=== PATIENT | female | born 1950 | race Caucasian/White ===

== ENCOUNTER 2022-02-13 20:31 | Outpatient (CLI) | payer OTHER, SELFPAY ==
--- OUTSIDE RECORDS SUMMARY | 2022-04-02 21:36 | XMS_ITS | Encounter Summary ---
:1950 Author Organization [facility] Address [address] [place] [address] Care Team Providers Name Role Phone Unavailable Primary Care Provider Unavailable Encounter Details Date Type Department Care Team Description 02/23/2022 Treatment [facility] Darrel Lepe MD [address] [place] [address] [place] [address] [place], [place] [phone] [place], [place] [phone] (Wo rk) Social History Tobacco Use Types Packs/Day Years Used Date Smoking Tobacco: Never Assessed Sex Assigned at Date Recorded Not on file documented as of this encounter Miscellaneous Notes Dialysis Note - Darrel Delgadillo MD - 02/23/2022 8:53 AM CDT Date: Feb 23, 2022 Patient Name: Charlotte Ramos : 1950 Chart #: [id number] Sex: F This patient was personally seen for a complete visit as part of routine monthly dialysis care. A review of the dialysis treatment, blood pressure, estimated dry weight and recent lab values was made. These were discussed with the patient and staff as necessary. JEWELRY CONSULTANT: Darrel Delgadillo MD LOCATION: [facility] [phone] SCHEDULE: -W- 2nd Shift EDW: kg. DIALYZER: HD DURATION: NEEDLE SIZE: ANTICOAG: BATH: QB: ml/min QD: ml/min Subjective 02/21: Doing better since hospitalization 1 or so weeks ago at [facility]/ diverticulitis. Completed course of abx. Tolerating hd rx better. Access working well. Her onc MD stopped chemo rx due to intolerance. Seeing them again soon in f/u. 01/22: Doing well overall. BMBx done on 01/06/22 w/ 30% plasma cell involvement (was 20% one year ago).Will discuss w/ onc MD soon. Also awaiting MRI of the spine to determine if there is an area(s) of irradiation that may be necessary for MET disease. 11/21: New to me. Tolerating hd better since she had cor stents placed at [facility]. Hosp 10/21/21-11/01/2021.Coronary angiogram on 10/29/21 which showed 90% stenosis in the proximal LAD, 90% stenosis in the proximal RCA for which FRED x2 placed. Does not yet have a chemo plan for the MM per onc MD. Access working well. No questions for me today. Physically, feeling much improvement since hospital d/c Pt new to dialysis. We have been using permcath as she had inadequate vessels to place fistula Also has a graft which is now over a month old. Feeling well, but has chronic sob. Denies any chest pains.Eating well. Denies edema. Continues to see hematology for Multiple MyelomT Today had two needles placed. Has apt with Dr Landry for access evaluation on the and will plan to get the access removed at that time. Denies sob at this time. She was told that her myeloma is worse but that the hematologists will hold off on further treatment at this time. 08/20/21 Feels well today, stronger . breathing is a little better than it was. Eating well. Had infiltrate left forearm. So we are using one needle and using the permcath for a return. She will be seeing her surgeon tomorrow. Still following with hematology. 09/01/21 Says she is feeling ok. Had an episode of hypotension on dialyiss last week and had an episode yesterday afternoon when she felt weak. 10/06/21 Feels ok. Not very active. Chemo to resume for her myeloma soon. Does get sob periodically . Denies chest pain Advanced Practitioner Subjective Review of Systems None reported. Fatigue. Problem List Description ICD9 Code ICD10 Code Type 2 diabetes mellitus 250.00 E11.9 End stage renal disease 585.6 N18.6 Dependence on renal dialysis V45.11 Z99.2 Exam Respiratory - Clear to auscultation bilaterally. Cardiovascular - Regular rate. Regular rhythm. No murmur heard. Edema - No leg edema. Access - LUE forearm AVG w/ ++t/b. Medication List No medication list is available. Allergy List No allergy list is available. Medications reviewed and no changes were made. relevant CV meds: amlodipine 5 mg qd, carvedilol 25 mg bid, losartan 25 mg qd, imdur 60 mg qd, furosemide 40 mg qd. Treatment and Adequacy Assessment BUN mg/dL 40 (02/02/22) 42 (01/02/22) 51 (12/01/21) 29 (11/07/21) TNP (11/05/21) CREATININE (MG/DL) IN SER/PLAS mg/dL 9.67 (02/18/22) 5.58 (01/19/22) 6.04 (12/17/21) 5.79 (11/17/21) 6.30 (11/14/21) URR% % 75 (02/02/22) 76 (01/02/22) 76 (12/01/21) 79 (11/07/21) See Below (11/05/21) Dialysis is adequate. Achieves prescribed time - Yes Achieves prescribed frequency - Yes Missed treatments in past 30 days - 0 Goal sp kt/v >/= 1.2 02/21: at goal here. 1.61 this month. Vascular Access Assessment Type of access: GraftLUE forearm avg Surgeon - con Landry Staff and patient report access is working 12/01/21: u/s reviewed. Will refer for preemptive f'gram. Anemia Assessment WBC (BLOOD) x 103 cells/uL 5.8 (02/18/22) 10.8 (01/19/22) 8.5 (12/17/21) 6.0 (11/17/21) 6.2 (11/14/21) HGB g/dL 7.6 (02/18/22) 8.8 (02/09/22) 8.8 (02/02/22) 9.2 (01/26/22) 9.3 (01/19/22) PLATELETS x 103 cells/uL 145 (02/18/22) 191 (01/19/22) 209 (12/17/21) 167 (11/17/21) 140 (11/14/21) IRON SATURATION % 44 (02/18/22) 34 (01/19/22) 43 (12/17/21) 60 (11/17/21) 42 (11/14/21) FERRITIN ng/mL 1423 (02/18/22) 1288 (01/19/22) 1443 (12/17/21) 1537 (11/17/21) 1455 (11/14/21) Hemoglobin is below goal. Iron Saturation is at goal. Ferritin is above goal. Will adjust LINA and intravenous iron per protocol. hgb 02-10: LINA has been cleared by onc MD to be administered by us. Transfusion dependent. We will shareher hgb values done weekly with her onc MD. Nutritional and Metabolic Assessment ALBUMIN (G/DL) g/dL 3.5 (02/18/22) 3.9 (01/19/22) 3.7 (12/17/21) 3.6 (11/17/21) 3.5 (11/14/21) POTASSIUM (MMOL/L) IN SER/PLAS mEq/L 4.7 (02/18/22) 4.5 (01/19/22) 5.3 (12/17/21) 4.6 (11/17/21) 4.7 (11/14/21) BICARBONATE (CO2) mEq/L 15 (02/18/22) 19 (01/19/22) 18 (12/17/21) 18 (11/17/21) 16 (11/14/21) Albumin is below goal. Potassium is at goal. Encourage low potassium diet. Bicarbonate is at goal. Continue same bicarbonate in dialysate. alb >/= 4; k 3.5-5.6; HCO3 17-24. 02/21: Alb suboptimal but K is fine. Push protein intake as able. HCO3 noted... Bone and Mineral Metabolism Assessment CALCIUM mg/dL 8.8 (02/02/22) 9.0 (01/02/22) 9.0 (12/01/21) 8.2 (11/14/21) Pending (11/05/21) CORRECTED CALCIUM mg/dL 8.9 (02/02/22) 9.2 (01/02/22) 9.3 (12/01/21) 8.6 (11/14/21) 9.4 (10/06/21) PHOSPHORUS mg/dL 5.5 (02/02/22) 4.9 (01/02/22) 4.7 (12/17/21) 6.6 (12/01/21) 7.1 (11/24/21) CA*PO4 CORRCTD Calc 49.0 (02/02/22) 45.1 (01/02/22) 61.4 (12/01/21) 59.3 (11/14/21) 63.0 (10/06/21) IPTH pg/mL 167 (02/02/22) 16 (11/05/21) 385 (08/04/21) 121 (07/04/21) Corrected Calcium is at goal. Phosphorous is at goal. Ca X P product is at goal. Intact PTH is at goal. Ca 8.5-10; phos 3-5.5; Ca x phos < 50; PTH 150-700 02/21: Phos is fine / well controlled. Ca is in goal as well. Cardiovascular Assessment Blood pressures reviewed and are acceptable. Intradialytic weight gains are appropriate. Estimated dry weight is appropriate. 12/22: Very very erratic bps. Hold on changes at this time due to frail physiology, often significantly anemic, etc. Transplant Status: Patient is not a candidate. Not transplant candidate due to obesity and her myeloma. Resuscitation Status Discussed with patient 11/10/21 who requested Full Code. 02/21: Lower rx time to 3 hr. She is losing weight so we will minimize UF due to progressive intolerance. HD is being used as palliation now. Hoping that she will be able to tolerate chemo better if / when it is restarted. 01/22: As below from 12/22. Will adjust hd as needed if chemo restarteed. 12/22: Await word on chemo restarting. Transfuse PRN 11/21: doing much better since cor angio. We will see how things go once chemo restarted... Darrel Delgaidllo MD [ Signed And locked electronically On 02/23/2022 at 08:58:30 AM ] Transcribed: Darrel Delgadillo ( 02/23/2022 ) documented in this encounter Plan of Treatment Not on filedocumented as of this encounter Visit Diagnoses Not on filedocumented in this encounter
--- OUTSIDE RECORDS SUMMARY | 2022-04-02 21:36 | XMS_ITS | Clinical Summary ---
:1950 Author Organization [facility] Facility Address [address] [place] [id number] Care Team Providers Name Role Phone Unavailable Primary Care Provider Unavailable Encounters Date Type Specialty Care Team Description 03/09/2022 Treatment Darrel Delgadillo MD 02/23/2022 Treatment Darrel Delgadillo MD 01/19/2022 Orders Only Nephrology Darrel Delgadillo MD 01/12/2022 Treatment Darrel Delgadillo MD from Last 3 Months Social History Tobacco Use Types Packs/Day Years Used Date Smoking Tobacco: Never Assessed Sex Assigned at Date Recorded Not on file Plan of Treatment Health Maintenance Due Date Last Done Comments Pneumococcal Vaccine: 65+ Years (1 [birth year]1954 - PCV) Hepatitis B Vaccine (1 of 5 - Risk 1968 Dialysis 4-dose series) Colorectal Cancer Screenin01/31/1997 Annual FOBT Colorectal Cancer Screenin01/31/1997 Colonoscopy Colorectal Cancer Screenin01/31/1997 Sigmoidoscopy Diabetes: Ophthalmology Exam 08/07/2021 Diabetes: Pedal Pulse Checked 08/07/2021 Diabetes: Sensory Foot Exam 08/07/2021 Diabetes: Visual Foot Exam 08/07/2021 Influenza Vaccine (#1) 2022 Diabetes: Hemoglobin A1C 05/21/2022 02/18/2022, 11/17/2021, 08/18/2021, Additional history exists Procedures Procedure Name Priority Date/Time Associated Comments Diagnosis HEMOGLOBIN Routine 03/30/2022 4:00 AM Results f or this [employer] procedure are i n the results section. HCT CALC HGBX3 (HC) Routine 03/30/2022 4:00 AM Re sults for this [employer] procedure are i n the results section. HEPATITIS B SURFACE Routine 03/23/2022 4:00 AM Re sults for this ANTIGEN [employer] procedure are i n the results section. FERRITIN Routine 03/23/2022 4:00 AM Results f or this [employer] procedure are i n the results section. ALT Routine 03/23/2022 4:00 AM Results f or this [employer] procedure are i n the results section. PHOSPHATE ( Routine 03/23/2022 4:00 AM Results for this PHOSPHORUS) [employer]ILY [employer] procedure are i n the results section. GLUCOSE, RANDOM Routine 03/23/2022 4:00 AM Result s for this [employer] procedure are i n the results section. CREATININE, SERUM Routine 03/23/2022 4:00 AM Resu lts for this [employer] procedure are i n the results section. KT/V DAUGIRDAS (HC) Routine 03/23/2022 4:00 AM [employer]ILY [employer]ER IRON PANEL (FE, Routine 03/23/2022 4:00 AM Result s for this TIBC, TSAT) [employer] procedure are i n the results section. MONTHLY HD W/O CA/PH Routine 03/23/2022 4:00 AM R esults for this (HC) [employer] procedure are i n the results section. HEMOGLOBIN Routine 03/16/2022 4:00 AM Results f or this [employer] procedure are i n the results section. HCT CALC HGBX3 (HC) Routine 03/16/2022 4:00 AM Re sults for this [employer] procedure are i n the results section. HEMOGLOBIN Routine 03/09/2022 4:00 AM Results f or this [employer] procedure are i n the results section. HCT CALC HGBX3 (HC) Routine 03/09/2022 4:00 AM Re sults for this [employer] procedure are i n the results section. KT/V DAUGIRDAS (HC) Routine 03/09/2022 4:00 AM Re sults for this [employer] WORK[employer] procedure are i n the results section. CARMEN/PHOS W/RATI (HC) Routine 03/09/2022 4:00 AM R esults for this [employer] procedure are i n the results section. HEMOGLOBIN Routine 03/04/2022 4:00 AM Results f or this CDT procedure are i n the results section. HCT CALC HGBX3 (HC) Routine 03/04/2022 4:00 AM Re sults for this CDT procedure are i n the results section. HEPATITIS B SURFACE Routine 03/02/2022 4:00 AM Re sults for this ANTIBODY QUANT CDT procedure are in the results section. HEMOGLOBIN Routine 03/02/2022 4:00 AM Results f or this CDT procedure are i n the results section. HEMOGLOBIN Routine 02/23/2022 4:00 AM Results f or this CDT procedure are i n the results section. HCT CALC HGBX3 (HC) Routine 02/23/2022 4:00 AM Re sults for this CDT procedure are i n the results section. HEPATITIS B SURFACE Routine 02/18/2022 4:00 AM Re sults for this ANTIGEN CDT procedure are i n the results section. FERRITIN Routine 02/18/2022 4:00 AM Results f or this CDT procedure are i n the results section. HEMOGLOBIN A1C Routine 02/18/2022 4:00 AM Results for this CDT procedure are i n the results section. ALT Routine 02/18/2022 4:00 AM Results f or this CDT procedure are i n the results section. GLUCOSE, RANDOM Routine 02/18/2022 4:00 AM Result s for this CDT procedure are i n the results section. CREATININE, SERUM Routine 02/18/2022 4:00 AM Resu lts for this CDT procedure are i n the results section. HCV PANEL NONPROTOCL Routine 02/18/2022 4:00 AM R esults for this (HC) CDT procedure are i n the results section. IRON PANEL (FE, Routine 02/18/2022 4:00 AM Result s for this TIBC, TSAT) CDT procedure are i n the results section. MONTHLY HD W/O CA/PH Routine 02/18/2022 4:00 AM R esults for this (HC) CDT procedure are i n the results section. HEMOGLOBIN Routine 02/09/2022 4:00 AM Results f or this CDT procedure are i n the results section. HCT CALC HGBX3 (HC) Routine 02/09/2022 4:00 AM Re sults for this CDT procedure are i n the results section. PTH, INTACT Routine 02/02/2022 4:00 AM Results f or this CDT procedure are i n the results section. HEMOGLOBIN Routine 02/02/2022 4:00 AM Results f or this CDT procedure are i n the results section. HCT CALC HGBX3 (HC) Routine 02/02/2022 4:00 AM Re sults for this CDT procedure are i n the results section. KT/V DAUGIRDAS (HC) Routine 02/02/2022 4:00 AM Re sults for this CDT procedure are i n the results section. CARMEN/PHOS W/RATI (HC) Routine 02/02/2022 4:00 AM R esults for this CDT procedure are i n the results section. HEMOGLOBIN Routine 01/26/2022 4:00 AM Results f or this CDT procedure are i n the results section. HCT CALC HGBX3 (HC) Routine 01/26/2022 4:00 AM Re sults for this CDT procedure are i n the results section. HEPATITIS B SURFACE Routine 01/19/2022 4:00 AM Re sults for this ANTIGEN CDT procedure are i n the results section. FERRITIN Routine 01/19/2022 4:00 AM Results f or this CDT procedure are i n the results section. ALT Routine 01/19/2022 4:00 AM Results f or this CDT procedure are i n the results section. GLUCOSE, RANDOM Routine 01/19/2022 4:00 AM Result s for this CDT procedure are i n the results section. CREATININE, SERUM Routine 01/19/2022 4:00 AM Resu lts for this CDT procedure are i n the results section. IRON PANEL (FE, Routine 01/19/2022 4:00 AM Result s for this TIBC, TSAT) CDT procedure are i n the results section. MONTHLY HD W/O CA/PH Routine 01/19/2022 4:00 AM R esults for this (HC) CDT procedure are i n the results section. HCT CALC HGBX3 (HC) Routine 01/02/2022 4:00 AM Re sults for this CDT procedure are i n the results section. HEMOGLOBIN Routine 01/02/2022 4:00 AM Results f or this CDT procedure are i n the results section. KT/V DAUGIRDAS (HC) Routine 01/02/2022 4:00 AM Re sults for this CDT procedure are i n the results section. CARMEN/PHOS W/RATI (HC) Routine 01/02/2022 4:00 AM R esults for this CDT procedure are i n the results section. from Last 3 Months Results (ABNORMAL) HCT CALC HGBX3 (03/30/2022 4:00 AM [employer]AGE [employer]ILY [employer] WORKER)Only the most recent of9 resultswithin the time period is included. Analysis Performed At Patho logist Time Signature Hemoglobin x 3 25.8 (L) 37.0 - APS [facility] 47.0 % [facility] Comment: Reference Range is for adult patients. ? ?Refer to pediatric reference ranges in the Lab Reference Manual for age-specifi c reference ranges. Specimen Anatomical Collection Method Collection Time Receive d Time (Source) Location / / Volume Laterality 03/30/2022 4:00 AM 2 7:51 [employer] PM [employer] Darrel Delgadillo MD LAB [id number] NSOLICITED RESULTS Performing Organization Address City/State/ZIP Code Phon e Number APS [facility] (ABNORMAL) Hemoglobin (03/30/2022 4:00 AM [employer]AGE [employer] FAMILY [employer]IAL WORKER)Only the most recent of10 results within the time period is included. P athologist Signature Hgb 8.6 (L) 12.0 - 16.0 [facility]PS [facility] g/dL [facility] Specimen Anatomical Collection Method Collection Time Receive d Time (Source) Location / / Volume Laterality 03/30/2022 4:00 AM 2 7:51 [employer] PM [employer] Darrel Delgadillo MD LAB BLOOD ORDERABLES Performing Organization Address City/State/ZIP Code Phon e Number APS [facility] KT/V DAUGIRDAS (03/23/2022 4:00 AM [employer]AGE [employer] FAMILY SOCIAL WORKER)Only the most recent of4 resultswithin the time period is included. Specimen Anatomical Collection Method Collection Time Receive d Time (Source) Location / / Volume Laterality 03/23/2022 4:00 AM 2 [employer] 11:28 AM [employer] WORKER Darrel Delgadillo MD LAB [id number] NSOLICITED RESULTS Performing Organization Address City/State/ZIP Code Phon e Number APS [facility] (ABNORMAL) MONTHLY HD W/O CA/PH (03/23/2022 4:00 AM [employer]AGE [employer] FAMILY SOCIAL WORKER)Only the most recent of3 resultswithin the time period is included. Patholo gist Method Time Signature Potassium 4.8 3.5 - 5.5 [facility] mEq/L [facility] Chloride 110 (H) 99 - 109 [facility] mEq/L [facility] Bicarbonate 16 (L) 20 - 31 A[facility] (CO2) mEq/L [facility] Protein, Total 7.8 5.7 - 8.2 [facility] g/dL [facility] Albumin 3.7 3.4 - 4.8 [facility] g/dL [facility] AST (SGOT) 14 0 - 33 [facility] U/L [facility] LDH 183 120 - 246 [facility] U/L [facility] Alkaline 120 (H) 46 - 116 [facility] Phosphatase U/L [facility] WBC 6.3 4.5 - APS [facility] 11.0 x [facility] 10'3 cells/uL RBC 2.41 (L) 4.20 - APS [facility] 5.40 x [facility] 10'6 cells/uL Hgb 8.6 (L) 12.0 - APS [facility] 16.0 g/dL [facility] Hematocrit 25.8 (L) 37.0 - APS [facility] 47.0 % [facility] MCV 107.2 (H) 80.0 - APS [facility] 100.0 fL [facility] Comment: NOTE: MCV may be falsely elevat ed in aged samples (approximately 72 hours). MCH 35.6 (H) 27.0 - 31.0 pg APS DAVITA [facility] N MCHC 33.2 32.0 - 36.0 g/dL [facility] [place] MMN RDW 19.2 (H) 11.0 - 15.0 % APS [facility] Platelets 129 (L) 150 - 400 x 10'3 cells/uL [facility] Neutrophils % Auto 62.7 % APS [facility] Lymphocytes Manual 26.6 % APS [facility] Monocytes Manual 5.4 % APS [facility] [place] MMN Eosinophil % 4.9 % APS [facility] Basophils Relative 0.4 % APS DAV[facility] Neutrophils Absolute 3,937.56 2,000 - 8,800 Cell/uL APS [facility] Lymphocytes Absolute 1,670.48 1,100 - 4,800 Cell/uL APS [facility] Monocytes Absolute 339.12 0 - 1,100 Cell/uL APS [facility] Eosinophils Absolute 307.72 0 - 700 Cell/uL APS [facility] Basophils Absolute 25.12 0 - 400 Cell/uL APS D AVITA [facility] Comment: NOTE:Diff percentage results will contin ue to be reported but without reference ranges per CAP guidelines and will not b e flagged as normal or abnormal. Absolute concentrations of circulating W BC are the preferable method of reporting and will continue to be evalua deidre against established reference ranges. Globulin 4.1 0.9 - 5 g/dL [facility] A/G Ratio 0.9 (L) 1 - 2.5 Calc APS [facility] Hemoglobin x 3 25.8 (L) 37.0 - 47.0 % APS [facility] Comment: Reference Range is for adult patients. ? ?Refer to pediatric reference ranges in the Lab Reference Manual for age-specifi c reference ranges. Specimen Anatomical Collection Method Collection Time Receive d Time (Source) Location / / Volume Laterality 03/23/2022 4:00 AM 2 [employer] 11:28 AM [employer]ILY [employer] WORKER Darrel Delgadillo MD LAB [id number] NSOLICITED RESULTS Performing Organization Address City/State/ZIP Code Phon e Number APS [facility] (ABNORMAL) Iron Panel (Fe, TIBC, TSAT) (03/23/2022 4:00 AM [employer]AGE AND FAMILY SOCIAL WORKER)Only the most recent of3 resultswithin the time period is included. P athologist Signature Iron 80 50 - 170 [facility] ug/dL [facility] TIBC 215 (L) 250 - 425 [facility]PS [facility] ug/dL [facility] UIBC 135 80 - 375 [facility]PS [facility] ug/dL [facility] Iron Saturation 37 16 - 46 % APS [facility] (TSat) [facility] Specimen Anatomical Collection Method Collection Time Receive d Time (Source) Location / / Volume Laterality 03/23/2022 4:00 AM 2 [employer] 11:28 AM [employer] Darrel Delgadillo MD LAB BLOOD ORDERABLES Performing Organization Address City/State/ZIP Code Phon e Number [facility] Hepatitis B Surface Antigen (03/23/2022 4:00 AM [employer] FAMILY [employer] WORKER)Only the most recent of3 resultswithin the time period is included. P athologist Signature Hep B Surface NEG -NEG [facility] Antigen [facility] Comment: This test utilizes Biotin (Vitamin B7) a s one of it's reagents. Testing may be interfered with in patients consuming Bi otin supplements. Please factor this when reviewing results. Specimen Anatomical Collection Method Collection Time Receive d Time (Source) Location / / Volume Laterality 03/23/2022 4:00 AM 2 [employer] 11:28 AM [employer] WORKER Darrel Delgadillo MD LAB BLOOD ORDERABLES Performing Organization Address City/[facility]/ZIP Code Phon e Number APS [facility] ALT (03/23/2022 4:00 AM MAR[employer]AGE [employer] FAMILY SOCIAL WORKER)Only the most recent of3 resultswithin the time period is included. athologist Signature ALT (SGPT) 12 10 - 49 U/L APS [facility] Specimen Anatomical Collection Method Collection Time Receive d Time (Source) Location / / Volume Laterality 03/23/2022 4:00 AM 2 [employer] 11:28 AM [employer]ER Darrel Delgadillo MD LAB BLOOD ORDERABLES Performing Organization Address [facility] Phon e Number APS DAVITA [facility] (ABNORMAL) Phosphorus (03/23/2022 4:00 AM MAR[employer]AGE AND FAMILY SOCIAL WORKER) athologist Signature Phosphorus, 7.4 (H) 2.4 - 5.1 APS [facility] Serum mg/dL [facility] Specimen Anatomical Collection Method Collection Time Receive d Time (Source) Location / / Volume Laterality 03/23/2022 4:00 AM 2 [employer] 11:28 AM [employer] WORKER Darrel Delgadillo MD LAB BLOOD ORDERABLES Performing Organization Address [facility] Code Phon e Number APS DAVITA [facility] (ABNORMAL) Glucose, random (03/23/2022 4:00 AM MAR[employer]AGE AND FAMILY SOCIAL WORKER)Only the most recent of3 resultswithin the time period is included. athologist Signature Glucose 216 (H) 70 - 99 APS DAVITA mg/dL [facility] Specimen Anatomical Collection Method Collection Time Receive d Time (Source) Location / / Volume Laterality 03/23/2022 4:00 AM 2 [employer] 11:28 AM [employer]ILY [employer] WORKER Darrel Delgadillo MD LAB BLOOD ORDERABLES Performing Organization Address City/[facility]/ZIP Code Phon e Number APS DAV[facility] (ABNORMAL) Ferritin (03/23/2022 4:00 AM MAR[employer]AGE AND FAMILY SOCIAL WORKER)Only the most recent of3 results within the time period is included. athologist Signature Ferritin 931 (H) 10 - 291 APS [facility]ITA ng/mL [facility] Specimen Anatomical Collection Method Collection Time Receive d Time (Source) Location / / Volume Laterality 03/23/2022 4:00 AM 2 [employer] 11:28 AM [employer]ILY [employer] WORKER Darrel Delgadillo MD LAB BLOOD ORDERABLES Performing Organization Address City/State/ZIP Code Phon e Number APS [facility] (ABNORMAL) Creatinine, serum (03/23/2022 4:00 AM MARRIAGE AND FAMILY SOCIAL WORKER)Only the most recent of3 resultswithin the time period is included. athologist Signature Creatinine 6.08 (H) 0.50 - 1.10 APS [facility] mg/dL [facility] Specimen Anatomical Collection Method Collection Time Receive d Time (Source) Location / / Volume Laterality 03/23/2022 4:00 AM 2 [employer] WORKER 11:28 AM [employer]ILY [employer] WORKER Darrel Delgadillo MD LAB BLOOD ORDERABLES Performing Organization Address City/[facility]/ZIP Code Phon e Number APS DAVITA [facility] (ABNORMAL) CARMEN/PHOS W/RATI (03/09/2022 4:00 AM MARRIAGE AND FAMILY SOCIAL WORKER)Only the most recent of3 resultswithin the time period is included. athologist Signature Calcium 8.2 (L) 8.7 - 10.4 APS [facility] mg/dL [facility] Phosphorus, 5.6 (H) 2.4 - 5.1 APS [facility] Serum mg/dL [facility] CA/PHOS 45.9 21 - 53 APS [facility] PRODUCT Calc [facility] Corrected 8.6 (L) 8.7 - 10.4 APS [facility] Calcium mg/dL [facility] CA*PO4 CORRCTD 48.2 21 - 53 APS [facility] Calc [facility] Specimen Anatomical Collection Method Collection Time Receive d Time (Source) Location / / Volume Laterality 03/09/2022 4:00 AM 2 [employer]ILY [employer] WORKER 10:45 AM [employer]ILY [employer] WORKER Darrel Delgadillo MD LAB [id number] NSOLICITED RESULTS Performing Organization Address City/State/ZIP Code Phon e Number APS [facility] Hepatitis B Surface Antibody (03/02/2022 4:00 AM CDT) athologist Signature Hepatitis B 7 0 - 9 APS [facility] Surface Ab mIU/mL [facility] Comment: Results >= 10 mIU/ml are consis tent with Immunity to Hepatitis B Specimen Anatomical Collection Method Collection Time Receive d Time (Source) Location / / Volume Laterality 03/02/2022 4:00 AM 2 CDT 10:49 AM CDT Darrel Delgadillo MD LAB BLOOD ORDERABLES Performing Organization Address City/State/ZIP Code Phon e Number APS [facility] HCV PANEL NONPROTOCL (02/18/2022 4:00 AM CDT) athologist Signature Hepatitis C 0.11 0.00 - APS [facility] Antibody 0.79 [facility] Comment: INDEX VALUE INTERPRETATION/COMMENT: < 0.80 Nonreactive, No HCV Antibody dete cted - considered NEGATIVE. >=0.80 - <1.00 considered EQUIVOCAL. >=1.00 considered REACTIVE. This test utilizes Biotin (Vitamin B7) a s one of it's reagents. Testing may be interfered with in patients consuming Bi otin supplements. Please factor this when reviewing results. HCV RNA PCR Quantitative see comments Log IU/mL AP S DAVITA [facility] Comment: Canceled, testing not indicated . Specimen Anatomical Collection Method Collection Time Receive d Time (Source) Location / / Volume Laterality 02/18/2022 4:00 AM 2 7:47 CDT AM CDT Darrel Delgadillo MD LAB [id number] NSOLICITED RESULTS Performing Organization Address City/[facility]/ZIP Code Phon e Number APS DAV[facility] (ABNORMAL) Hemoglobin A1c (02/18/2022 4:00 AM CDT) athologist [facility] Hemoglobin A1C 8.1 (H) 0.0 - 5.6 APS DAVITA %A1c [facility] Specimen Anatomical Collection Method Collection Time Receive d Time (Source) Location / / Volume Laterality 02/18/2022 4:00 AM 2 7:47 CDT AM CDT Darrel Delgadillo MD LAB BLOOD ORDERABLES Performing Organization Address City/State/ZIP Code Phon e Number APS [facility] (ABNORMAL) PTH, Intact (02/02/2022 4:00 AM CDT) P athologist Signature PTH 167 (H) 18 - 80 APS DAVITA pg/mL [facility] Comment: This test utilizes Biotin (Vitamin B7) a s one of it's reagents. Testing may be interfered with in patients consuming Bi otin supplements. Please factor this when reviewing results. METHODOLOGY: SIE MENS Reference range changed as of May 03, 2017. Specimen Anatomical Collection Method Collection Time Receive d Time (Source) Location / / Volume Laterality 02/02/2022 4:00 AM 2 CDT 12:39 PM CDT Darrel Delgadillo MD LAB BLOOD ORDERABLES Performing Organization Address City/State/ZIP Code Phon e Number APS [facility] from Last 3 Months Insurance Payer Benefit Plan Subscriber ID Effective Dates Phone Address Type / Group HUMANA HUMANA GOLD [id number] 2021-Fátima [phone] [address] [address] PPO MEDICARE MCR ADV t [address] [place], [place] [phone]
--- OUTSIDE RECORDS SUMMARY | 2022-04-02 21:36 | XMS_ITS | Clinical Summary ---
:1950 Author Organization [employer] [facility] [place] [address] Care Team Providers Name Role Phone Courtney Scott MD Unavailable Yvrose Aparicio NP Unavailable Kassie Villegas DO Primary Care Provider Allergies Active Allergy Reactions Severity Noted Date Comments Banana Other - Describe In 04/16/2017 sneezing Comment Field Meperidine 06/16/2006 reaction after surgery 1999 Peanut Oil Other - Describe In 04/16/2017 sneezing Comment Field Homeopathic Products 06/16/2006 Medications Medication Sig Dispensed Refills Start Date End Date Status ASCORBIC ACID (VITAMIN Take 1 tablet by 0 Active C ORAL) mouth once daily. APPLE CIDER VINEGAR Take 1 tablet by 0 Active ORAL mouth 2 times daily. CPAPIndications: TANYA airfit F20 small 1 Device 2 09/07/2019 Active (obstructive sleep mask x 1 q 3 mo, apnea) standard pap tubing x 1 q 3 mo, headgear x 1 q 6 mo CPAPIndications: TANYA CPAP machine for 1 Device 11 10/10/2019 Active (obstructive sleep home use at apnea) pressure: 14 cmw , Heated humidifier x 1 q 5 yr, Humidifier chamber x 1 q 6 mo, Full face mask x1 q 3mos, with cushion x 1 q mo, standard tubing x 1 q 3 mo, Headgear x 1 q 6 mo, Filters: Disposable x 2 q mo non-disposable filters x1 q 6mo, Length of Need: 99 months, Frequency of use: Daily CPAPIndications: TANYA CPAP machine for 1 Device 11 10/10/2019 Active (obstructive sleep home use at apnea), Dry mouth, pressure: 5-16 cmw Obesity, unspecified , Heated classification, humidifier x 1 q 5 unspecified obesity yr, Humidifier type, unspecified chamber x 1 q 6 whether serious mo, Full face mask comorbidity present x1 q 3mos, with cushion x 1 q mo, standard tubing x 1 q 3 mo, Headgear x 1 q 6 mo, Filters: Disposable x 2 q mo non-disposable filters x1 q 6mo, Length of Need: 99 months, Frequency of use: Daily CPAPIndications: TANYA Full face mask with cushion x 1 every 3 months,standard tubing x 1 every 3 months, Headgear x 1 every 6 months, Length of Need: 99 months, Frequency of use: 1 Device 0 08/16/2019 Ac tive on CPAP Daily albuterol HFA 90 Inhale 2 Puffs by 1 Inhaler 1 12/27/2019 Active mcg/actuation mouth 4 times inhalerIndications: daily if needed. Cough polyvinyl alcohol Place 2 Drops into 0 Active (ARTIFICAL TEARS) 1.4 both eyes once % ophthalmic solution daily if needed for Dry Eyes. sertraline (ZOLOFT) 50 Take 1 Tablet (50 90 Tablet 3 1 Active mg tabletIndications: mg) by mouth once Moderate recurrent daily. major depression (HC) oxybutynin (DITROPAN Take 1 Tablet (15 90 Tablet 3 04/10/2021 Active XL) 15 mg CR mg) by mouth once tabletIndications: OAB daily. (overactive bladder) isosorbide mononitrate Take 2 Tablets (60 180 Tablet 3 021 Active (IMDUR) 30 mg extended mg) by mouth once release tablet 24 daily. HourIndications: Abnormal stress test Vit A,C,R-Lhfo-Qgpysp Take 1 Tablet by 0 Active (PreserVision AREDS) mouth 2 times [phone],[id number] daily. mtht-yn-[id number] cap b complex-vitamin Take 1 Capsule by 30 Capsule 0 07/02/2021 Active c-folic acid 1 mg mouth once daily (NEPHROCAPS) 1 mg with evening meal. capsuleIndications: Chronic kidney disease, stage V (HC) aspirin chewable 81 mg Take 1 Tablet (81 0 2 Active chewable mg) by mouth or tabletIndications: nasogastric tube Coronary artery once daily. disease involving DECREASED DOSE [place] coronary artery of [place] heart without angina pectoris, S/P angioplasty with stent, NSTEMI (non-ST elevated myocardial infarction) (HC) nitroglycerin Place 1 Tablet 25 tablet. 3 07/08/2021 Active (NITROSTAT) 0.4 mg (0.4 mg) under the sublingual tongue every 5 tabletIndications: minutes if needed ASHD (arteriosclerotic for Chest Pain. Up heart disease) to 3 pills per episode. acetaminophen (TYLENOL Take 2 Tablets 50 Tablet 0 07/10/2021 Active EXTRA STRGTH) 500 mg (1,000 mg) by tabletIndications: mouth every 6 Cervical paraspinal hours if needed muscle spasm, Spasm of for Headache, Pain thoracic back muscle, or Temp>101.5F Lumbar paraspinal (38.6C) (For mild muscle spasm pain). Max acetaminophen dose: 4000mg in 24 hrs. losartan (COZAAR) 25 Take 1 Tablet (25 90 Tablet 3 08/04/2021 Active mg tabletIndications: mg) by mouth once Hypertension daily in the associated with evening. diabetes (HC) prochlorperazine Take 1 Tablet (5 30 Tablet 2 09/25/2021 Active (COMPAZINE) 5 mg mg) by mouth every tabletIndications: 6 hours if needed Multiple myeloma not for having achieved Nausea/Vomiting. remission (HC) calcitrioL (ROCALTROL) Take by mouth. 0 Active 0.25 mcg capsule TAKE 2 CAPSULES BY MOUTH EVERY WEDNESDAY EVERY WEDNESDAY EVERY WEDNESDAY AND 1 ALL OTHER DAYS OF THE WEEK Calcium Acetate Take 1,334 mg by 0 Active (PHOS-LO) 667 mg mouth 3 times capsule daily with meals. ondansetron (ZOFRAN) 8 Take 8 mg by mouth 0 Active mg tablet every 8 hours if needed for Nausea/Vomiting. loratadine (CLARITIN) Take 1 Tablet (10 0 10/30/2021 Active 10 mg mg) by mouth once tabletIndications: daily if needed Allergic rhinitis, for Allergy unspecified Symptoms. Hold seasonality, until discussed unspecified trigger with your primary oncologist clopidogreL (PLAVIX) Take 1 Tablet (75 90 Tablet 3 11/04/2021 Active 75 mg mg) by mouth once tabletIndications: S/P daily. Take one angioplasty with year stent, Coronary artery uninterrupted. Do disease involving not stop unless [place] coronary artery directed by of [place] heart Cardiology. without angina pectoris furosemide (LASIX) 40 Take 1 Tablet (40 90 Tablet 3 11/04/2021 Active mg tabletIndications: mg) by mouth every S/P angioplasty with morning. stent, Coronary artery disease involving [place] coronary artery of [place] heart without angina pectoris gabapentin (NEURONTIN) Take 1 Capsule 90 Capsule 3 11/04/2021 Active 300 mg (300 mg) by mouth capsuleIndications: at bedtime. RLS (restless legs syndrome) rOPINIRole (REQUIP) Take 0.25mg by 90 Tablet 1 12/18/2021 Active 0.25 mg mouth 2-3 hours tabletIndications: RLS before bedtime. (restless legs syndrome) miscellaneous medical As directed. 1 Each 0 12/18/2021 Active supply Motorized scooter miscIndications: ESRD on hemodialysis (HC), Multiple myeloma not having achieved remission (HC), Generalized weakness oxyCODONE (ROXICODONE) Take 1 Tablet (5 30 Tablet 0 12/18/2021 Active 5 mg immediate release mg) by mouth every tabletIndications: 4 hours if needed Multiple myeloma not for Pain. having achieved remission (HC) FreeStyle Armond 2 To be used to read 1 Each 0 12/18/2021 Active ReaderIndications: blood sugars per Type 2 diabetes die maintenance's mellitus without directions. complication, with long-term current use of insulin (HC) FreeStyle Armond 2 Change sensor 6 Each 3 12/18/2021 Active SensorIndications: every 14 days Type 2 diabetes mellitus without complication, with long-term current use of insulin (HC) acyclovir (ZOVIRAX) Take 1 Capsule 56 Capsule 11 01/26/2022 Active 200 mg (200 mg) by mouth capsuleIndications: two times daily. Multiple myeloma not having achieved remission (HC) amLODIPine (NORVASC) 5 Take 1 tablet by 120 Tablet 0 2 Active mg tabletIndications: mouth twice daily Essential hypertension atorvastatin (LIPITOR) Take 1 tablet by 90 Tablet 0 01/28/2022 Active 40 mg mouth once daily tabletIndications: NSTEMI (non-ST elevated myocardial infarction) (HC) omega 9-omi-mla-fish Take 1 Capsule by 0 Active oil 300-1,000 mg cpDR mouth once daily. insulin glargine, Inject 27 units 0 02/16/2022 Active U-100, 100 unit/mL (3 subcutaneous mL) penIndications: before breakfast. Type 2 diabetes Product mellitus without desired:LANTUS complication, with long-term current use of insulin (HC) Active Problems Problem Noted Date Diverticulitis large intestine 02/13/2022 Hypertensive emergency 10/21/2021 Shortness of breath 10/13/2021 Vertigo 10/13/2021 Weakness 10/13/2021 Coronary artery disease involving [place] coronary julio cesar ry of [place] heart 07/08/2021 without angina pectoris Overview: NSTEMI (07/07/2021) w/ in-stent restenosis (of stent from 2009) s/p FRED pRCA (07/08/2021) - 50% residual disease of mLAD noted. 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 Treatment started 01/30/[address] Scott: - Bortezomib 1.3mg/m2 SC days 1,4,8,11 every 21 days - Revlimid 5mg daily on days 1-14 (dose d for renal function) - Dexamethasone 20mg weekly (rather anne marie n 40mg due to age and comorbities) - 8-12 cycles - followed by lenalidomide or bortezomi b maintenance - acyclovir prophylaxis. Anemia due to chronic kidney disease, on chronic dialy sis 06/12/2019 Cervical paraspinal muscle spasm 03/27/2019 Spasm of thoracic back muscle 03/27/2019 Lumbar paraspinal muscle spasm 03/27/2019 NSTEMI (non-ST elevated myocardial infarction) 019 Overview: NSTEMI (07/07/2021) w/ in-stent restenosis (of stent from 2009) s/p FRED pRCA (07/08/2021) - 50% residual disease of mLAD noted. Type 2 diabetes mellitus without complication, with lo ng-term current use 08/26/2018 of insulin Hypertension associated with diabetes 05/12/2018 AV fistula 12/17/2017 AV fistula stenosis 12/17/2017 Postoperative anemia 12/06/2015 Midline low back pain without sciatica 01/15/2015 Hip pain, bilateral 01/15/2015 Restless legs 01/15/2015 MRSA (methicillin resistant staph aureus) culture posi tive 07/12/2014 TANYA (obstructive sleep apnea) 04/09/2014 Low HDL (under 40) 01/25/2014 Hearing loss 04/05/2013 Tinnitus 04/05/2013 Osteoarthritis 05/26/2011 Moderate recurrent major depression 04/01/2010 Morbid obesity 08/26/2007 Esophageal reflux 04/01/2007 Coronary atherosclerosis of unspecified type of vessel , [place] or graft 06/30/2006 Overview: 04/10/10: pRCA drug eluting stent 10/29/21: S/P PCI to pLAD and pRCA Other and unspecified hyperlipidemia 06/16/2006 Overview: Formatting of this note is dif ferent from the original. Recent Labs Basename 04/09/10 1210 ? ? CHOL 241H ? ? TRIGLYCERIDE 192H ? ? HDL 36L ? ? CHOLHDLRATIO 6.69H ? ? 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 coli sepsis 12/09/2015 01/08/2019 Angina 04/10/2010 05/20/2011 Katrin Care Contract 02/26/2010 06/01/2011 Overview: This patient, PCP and Care Guide have si gned a letter agreeing on a set of goals for diabetes, hypertension and/or CHF. Please look for Katrin Care Goal Contract in Chart Review/ Letters and support thi s effort. Please direct questions to Jerry Ford Phone number [phone] Vitamin D deficiency 07/18/2008 07/24/2013 Unspecified adverse effect of unspecified drug, medicinal an d 09/13/2007 01/08/2019 biological substance Umbilical hernia without mention of obstruction or gangrene 04/01/2007 05/20/2011 Chronic kidney disease, stage V 07/08/19 ESRD (end stage renal disease) Encounters Date Type Specialty Care Team Description 03/31/2022 Hospital Encounter Multiple myeloma not having achieved remission (HC) 03/31/2022 Travel 03/30/2022 Telephone Yvrose Aparicio [facility] Lab 03/19/2022 Orders Only Staff, Other <No scans attac hed> Clinical 03/09/2022 Emergency Yolanda Bennett Anemia, u nspecified type (Primary Dx); MD Caro ESRD (end stag e renal disease) on dialysis (HC); Elevated tropon in 03/09/2022 Telephone Yvrose Aparicio [facility] Lab 03/09/2022 Travel 03/03/2022 Office Visit [facility] F/U ( 02/25); MD Josiah Lab (03/03) 03/03/2022 Hospital Encounter Multiple myeloma not having achieved remission (HC) 03/03/2022 Travel 02/25/2022 Emergency Le Guzman M D Diarrhea, unspecified type (Primary Dx); Westley Mayen Hypomagnesem ia; MD Sterling Nausea and vomi ting, unspecified vomiting type 02/25/2022 Telephone Courtney Scott Appointment MD Josiah 02/25/2022 Travel 02/24/2022 Refill Courtney Scott Refill Request ; MD Josiah Error-please di sregard 02/20/2022 Orders Only Courtney Scott <No scans dwayne ched> MD Josiah 02/18/2022 Telephone Yvrose Aparicio, [facility] [facility] Appointment 02/17/2022 Patient Outreach Jenise Wilhelm, HARMAN Prim aspen RN Care Management; Hos pital F/U (DOD Lace 64 Dx Diverticu litis large intestine ) 02/13/2022 - Hospital Encounter Med, [facility] (P rimary Dx); 02/16/2022 Internal Type 2 diabetes mellitus without complic ation, with long-term current use of insulin (HC); Remberto Rodriguez, Multiple my eloma not having achieved remission (HC); Kale Ybarra Diverticulitis [facility] Discharge Summary - [facility] - 02/16/2022 3:30 PM CDT Images from the original not e were not included. HOSPITALIST DISCHARGE SUMMAR Y ? ? [facility] Admission Date: 02/13/2022 Discharge Date: 02/16/2022 Discharge Plan: Charlotte buckley was discharged to home. Principal Diagnosis Acute uncomplicated sigmoid diverticulitis ESRD on hemodialysis Generalized weakness Multiple myeloma on treatmen t Multiple myeloma on [facility] Problem List Principal Problem: Diverticulitis large intest ine Active Problems: Other and unspecified hyper lipidemia Unspecified essential hyper tension Coronary atherosclerosis of unspecified type of vessel, [place] or graft Esophageal reflux Morbid obesity (HC) Moderate recurrent major de pression (HCC) TANYA (obstructive sleep apne a) Midline low back pain witho ut sciatica Hip pain, bilateral Restless legs Cervical paraspinal muscle spasm Spasm of thoracic back musc le Lumbar paraspinal muscle sp asm Anemia due to chronic kidne y disease, on chronic dialysis (HC) Multiple myeloma (HC) ESRD on hemodialysis (HC) Vertigo Weakness ADDITIONAL COMMENTS REGARDIN G DIAGNOSIS SPECIFICITY Additional Diagnosis [facility] Charlotte Ramos is a 72 y.o. f emale who presented with abdominal pain, noted to have acute sigmoid diverticulitis . Diverticulitis large intesti ne ?- ??pt with 4-5 days abdominal pain ?- ??no fever, WBC ok ?- ??will tx with IV Zosyn- symptoms resolved . Patient tolerated diet , had BM. No abdominal tenderness. Discharged on po cipro and f lagyl- dosed for renal function ?? ESRD ?- ??she missed Wed t x because of pain and todays because she was in ER in [facility] ?-nephrology consult - - Patient back on hemodialy sis schedule, had dialysis before discharge today ?? ASCVD ?- ??s/p stent placem ent October ?- ??has done well si nce ?- ??continued plavix and Imdur ?? DM 2 ?- ??on insulin ?- home regimen princess nued ?? Multiple myeloma ?- ??on revlimid ?- ??hold for now in setting of acute infection ?? Thrush ?- ??nystatin swish a nd swallow Multiple myeloma Advised to hold chemo for fe w days until infection clears , f/u with pcp in 5 days and recheck with oncology . Weakness therapy evaluation was done Patient declined home care . She says she has family available to help. She will check with her PCP if she feels she need any home care later. ?? Hyperlipidemia ?- ??on lipitor ?? Sleep apnea ?- ??on cpap ?- ??ok for home cpap ??- which she brought with her. Recommendations for Outpatie nt Provider ? ? PCP: Kassie Villegas, DO Recommendations for the Out patient Provider Specific recommendations to be addressed at the follow up visit: post-hospital and medical fo llow-up. Diverticulitis follow up F/u oncology regarding chemo therapy Medication regimen changes: see Hospital Course above. Follow-up labs/imaging: none Other specialty follow-up no t included in DC orders: None Special considerations: none . Functional evaluations: Fall Risk: Total Score (If 5 or > is High Risk): 3 (02/16/221153) NuDESC (>/=2 abnormal): 0 ( 02/16/221153) MOCA: // SLUMS: Discharge Medications Your Home Medicines START taking these medicines Instructions ciprofloxacin HCl 500 mg tab let For diagnoses: Diverticuliti s Commonly known as: CIPRO Take 1 Tablet (500 mg) by m outh once daily for 7 days. Take after dialysis on dialysis days metroNIDAZOLE 500 mg tablet For diagnoses: Diverticuliti s Commonly known as: FLAGYL Take 1 Tablet (500 mg) by m outh every 8 hours for 7 days. nystatin 100,000 unit/mL alycia pension For diagnoses: Thrush Commonly known as: MYCOSTATI N Swish and swallow 5 mL (500 ,000 units) by mouth four times daily for 10 days. CHANGE how you take these me dicines Instructions lenalidomide 5 mg Cap capsul e For diagnoses: Multiple myel cristofer not having achieved remission (HC) What changed: additional ins tructions Commonly known as: REVLIMID Take 1 Capsule (5 mg) by mo uth once daily. Take on days 1-21 of each 28 day cycle. When scheduled dose follows on a dialysis day, administer after dialysis Please check with your oncol ogist before restarting Doctor's comments: Auth numb er: [id number] CONTINUE taking these medici dale Instructions acetaminophen 500 mg tablet For diagnoses: Cervical para spinal muscle spasm, Spasm of thoracic back muscle, Lumbar paraspinal muscle spasm Commonly known as: TYLENOL E XTRA STRGTH Take 2 Tablets (1,000 mg) b y mouth every 6 hours if needed for Headache, Pain or Temp>101.5F (38.6C) (For mild pain). Max acetaminophen dose: 4000mg in 24 hrs. acyclovir 200 mg capsule For diagnoses: Multiple myel cristofer not having achieved remission (HC) Commonly known as: ZOVIRAX Take 1 Capsule (200 mg) by mouth two times daily. albuterol HFA 90 mcg/actuati on inhaler For diagnoses: Cough Commonly known as: PRO-AIR; VENTOLIN; PROVENTIL Inhale 2 Puffs by mouth 4 t imes daily if needed. amLODIPine 5 mg tablet For diagnoses: Unspecified e ssential hypertension Commonly known as: NORVASC Take 1 tablet by mouth twic e daily Doctor's comments: 01/28/2022 This Rx replaces all other Rxs for this medication APPLE CIDER VINEGAR ORAL Take 1 tablet by mouth 2 ti mes daily. aspirin chewable 81 mg chewa ble tablet For diagnoses: Coronary julio cesar ry disease involving [place] coronary artery of [place] heart without angina pectoris, S/P angioplasty with stent, NSTEMI (non-ST elevated myocardial infarction) (HC) Take 1 Tablet (81 mg) by mo ut or nasogastric tube once daily. DECREASED DOSE atorvastatin 40 mg tablet For diagnoses: NSTEMI (non-S T elevated myocardial infarction) (HC) Commonly known as: LIPITOR Take 1 tablet by mouth once daily Doctor's comments: 01/28/2022 This Rx replaces all other Rxs for this medication b complex-vitamin c-folic ac id 1 mg 1 mg capsule For diagnoses: Chronic kidne y disease, stage V (HC) Commonly known as: NEPHROCAP S Take 1 Capsule by mouth onc e daily with evening meal. calcitrioL 0.25 mcg capsule Commonly known as: ROCALTROL Take by mouth. TAKE 2 CAPSU LES BY MOUTH EVERY WEDNESDAY EVERY WEDNESDAY EVERY WEDNESDAY AND 1 ALL OTHER DAYS OF THE WEEK Calcium Acetate 667 mg capsu le Commonly known as: PHOS-LO Take 1,334 mg by mouth 3 ti mes daily with meals. clopidogreL 75 mg tablet For diagnoses: S/P angioplas ty with stent, Coronary artery disease involving [place] coronary artery of [place] heart without angina pectoris Commonly known as: PLAVIX Take 1 Tablet (75 mg) by mo uth once daily. Take one year uninterrupted. Do not stop unless directed by Cardiology. * CPAP For diagnoses: TANYA on CPAP Full face mask with cushion x 1 every 3 months,standard tubing x 1 every 3 months, Headgear x 1 every 6 months, Length of Need: 99 months, Frequency of use: Daily * CPAP For diagnoses: TANYA (obstruct ananth sleep apnea) airfit F20 small mask x 1 q 3 mo, standard pap tubing x 1 q 3 mo, headgear x 1 q 6 mo * CPAP For diagnoses: TANYA (obstruct ananth sleep apnea) CPAP machine for home use a t pressure: 14 cmw , Heated humidifier x 1 q 5 yr, Humidifier chamber x 1 q 6 mo, Full face mask x1 q 3mos, with cushion x 1 q mo, standard tubing x 1 q 3 mo, Headgear x 1 q 6 mo, Filters: Disposable x 2 q mo non-disposable filters x1 q 6mo, Length of Need: 99 months, Frequency of use: Daily * CPAP For diagnoses: TANYA (obstruct ananth sleep apnea), Dry mouth, Obesity, unspecified classification, unspecified obesity type, unspecified whether serious comorbidity present CPAP machine for home use a t pressure: 5-16 cmw , Heated humidifier x 1 q 5 yr, Humidifier chamber x 1 q 6 mo, Full face mask x1 q 3mos, with cushion x 1 q mo, standard tubing x 1 q 3 mo, Headgear x 1 q 6 mo, Filters: Disposable x 2 q mo non-disposable filters x1 q 6mo, Length of Need: 99 months, Frequency of use: Daily FreeStyle Armond 2 [place] For diagnoses: Type 2 diabet es mellitus without complication, with long-term current use of insulin (HC) Generic drug: continuous glu cose monitor READER To be used to read blood guardado gars per die maintenance's directions. FreeStyle Armond 2 Sensor For diagnoses: Type 2 diabet es mellitus without complication, with long-term current use of insulin (HC) Generic drug: continuous glu cose monitor SENSOR KIT Change sensor every 14 days furosemide 40 mg tablet For diagnoses: S/P angioplas ty with stent, Coronary artery disease involving [place] coronary artery of [place] heart without angina pectoris Commonly known as: LASIX Take 1 Tablet (40 mg) by mo uth every morning. gabapentin 300 mg capsule For diagnoses: RLS (restless legs syndrome) Commonly known as: NEURONTIN Take 1 Capsule (300 mg) by mouth at bedtime. isosorbide mononitrate 30 mg extended release tablet 24 Hour For diagnoses: Abnormal stre ss test Commonly known as: IMDUR Take 2 Tablets (60 mg) by m outh once daily. loratadine 10 mg tablet For diagnoses: Allergic rhin itis, unspecified seasonality, unspecified trigger Commonly known as: CLARITIN Take 1 Tablet (10 mg) by mo uth once daily if needed for Allergy Symptoms. Hold until discussed with your primary oncologist losartan 25 mg tablet For diagnoses: Hypertension associated with diabetes Commonly known as: COZAAR Take 1 Tablet (25 mg) by mo uth once daily in the evening. miscellaneous medical supply Mis For diagnoses: ESRD on hemod ialysis (HC), Multiple myeloma not having achieved remission (HC), Generalized weakness As directed. Motorized scoo ter nitroglycerin 0.4 mg subling ual tablet For diagnoses: ASHD (arterio sclerotic heart disease) Commonly known as: NITROSTAT Place 1 Tablet (0.4 mg) und er the tongue every 5 minutes if needed for Chest Pain. Up to 3 pills per episode. omega 7-bjf-ifh-fish oil 300 -1,000 mg Cpdr Take 1 Capsule by mouth onc e daily. ondansetron 8 mg tablet Commonly known as: ZOFRAN Take 8 mg by mouth every 8 hours if needed for Nausea/Vomiting. oxybutynin 15 mg CR tablet For diagnoses: OAB (overacti ve bladder) Commonly known as: DITROPAN XL Take 1 Tablet (15 mg) by mo uth once daily. oxyCODONE 5 mg immediate rel ease tablet For diagnoses: Multiple myel cristofer not having achieved remission (HC) Commonly known as: ROXICODON E Take 1 Tablet (5 mg) by ronit th every 4 hours if needed for Pain. polyvinyl alcohol 1.4 % opht halmic solution Commonly known as: ARTIFICAL TEARS Place 2 Drops into both eye s once daily if needed for Dry Eyes. PreserVision AREDS 14,320-22 6-200 [id number] Cap Generic drug: Vit A,C,E-Zinc -Copper Take 1 Tablet by mouth 2 ti mes daily. prochlorperazine 5 mg tablet For diagnoses: Multiple myel cristofer not having achieved remission (HC) Commonly known as: COMPAZINE Take 1 Tablet (5 mg) by ronit th every 6 hours if needed for Nausea/Vomiting. rOPINIRole 0.25 mg tablet For diagnoses: RLS (restless legs syndrome) Commonly known as: REQUIP Take 0.25mg by mouth 2-3 ho urs before bedtime. sertraline 50 mg tablet For diagnoses: Moderate recu rrent major depression (HC) Commonly known as: ZOLOFT Take 1 Tablet (50 mg) by mo uth once daily. VITAMIN C ORAL Take 1 tablet by mouth once daily. * This list has 4 medicatio n(s) that are the same as other medications prescribed for you. Read the directions carefully, and ask your doctor or other care provider to review them with you. TAKE THE MEDICINE(S) YOU REPORTED BELOW. The provider has reviewed how you said you take these medicine(s) and wants you to keep taking them as you normally do. Your prescription has been adjusted to reflect this. Instructions insulin glargine (U-100) 100 unit/mL (3 mL) pen For diagnoses: Type 2 diabet es mellitus without complication, with long-term current use of insulin (HC) Inject 27 units subcutaneou s before breakfast. Product desired:LANTUS Where to get your medicines These medications were sent to [facility] [address] [place] [id number] ciprofloxacin HCl 500 mg tab let metroNIDAZOLE 500 mg tablet nystatin 100,000 unit/mL alycia pension Pertinent Findings / Procedu res First weight: 114.6 kg (252 lb 9.6 oz) (02/14/22 1330) Last weight: 106.8 kg (235 lb 7.2 oz) (02/16/22 1039) EKG (02/13/2022) ? Brief summary of the finding s include: sinus , ST and T wave abnorm ality - nonspecific ?? CT abdomen/pelvis Impression: Demonstration of fluid-fille d colon with focal thickening and pericolonic inflammation of the sigmoid colon likely representing mild diverticulitis. Consultants Encounter Notes Consults from Darrel Delgadillo MD (Nephrology) Diet / Activity / Follow-Up After Discharge Orders and I nstructions For your safety: If prescribed, use your can e, walker, or crutches as directed. Carry a phone (cordless or c jovanaular) with you at all times in case of an emergency Reduce your chance of fallin g in your home by: - removing throw rugs - using a night light - clearing the path from you r bed to the bathroom. PATIENT COMMUNICATION Upon discharge, your primar y clinic provider, Kassie Villegas, , will be responsible for your ongoing medical care. However, if you need further assistance from your hospital physician in the next 7 2 hours, you may contact the by calling [phone]. [facility] Primary Care Provider shiloh hall up appointment(s) Kassie Villegas DO When to follow up: 1 to 5 d ays Up as tolerated It is important to slowly r eturn to your regular level of activity. Start with 5-10 minutes at one time and slowly build to 30 minutes at one time. Save your energy by spreading out activities that make you tired. Rest as needed. What you may eat and drink after your hospital stay: YOUR RECOMMENDED SELECTION FOR MEALS ARE: RENAL - DIALYSIS DIET: Choose foods that support yo ur dialysis treatment - Avoid bananas, oranges, to matoes, melons and potatoes - Limit all dairy foods to ? ? cup or 4 ounces each day - Include a protein source w ith each meal. Best sources are: beef, pork, fish, chicken, turkey or eggs - Do not add salt to your fo od. Try herb and spice blends such as Mrs. Patricia??. Limit foods canned and processed with salt. Choose fresh or frozen foods when you can When should you be concerne d? Your health care provider i s: Kassie Villegas, DO Please call your health care provider if: - you feel you are getting w orse or having an increase in problems - fever greater than 101 [address] [place] - increasing shortness of br eath - any signs of infection (in creasing redness, swelling, tenderness, warmth, change in appearance, or increased drainage) - blood in your urine or sto ol - coughing or vomiting blood - nausea (upset stomach) and vomiting and/or diarrhea that will not stop - severe pain that is not re lieved by medicine, rest or ice Call 911 if you feel you are having a medical emergency. Why were you at the [facility]? You were in the hospital fo r abdominal pain due to diverticulitis. Pending Studies Lab results that may not be resulted at time of discharge: (From admission through now) None Total time spent on discharg e coordination: 35 minutes. Patient was seen and examined today. Albertina Wright [facility] Hospitalist, [facility] ? ? [phone] 02/12/2022 - Emergency Pennie De La Cruz Diverticuli tis (Primary Dx); 02/13/2022 CARLOS MANUEL Elizondo LLQ pain; Melony Alvarado, ESRD ( end stage renal disease) on dialysis (HC); Multiple myeloma, remission status unspe cified (HC) Yolanda Bennett MD 02/12/2022 Office Visit Yvrose Aparicio NP Follow Up ( Multiple myeloma) 02/12/2022 Hospital Encounter 02/12/2022 Travel 02/09/2022 Telephone Yvrose Aparicio NP Appointment 01/30/2022 Telephone Courtney Scott, Refill Request (Lenalidomide O rder ) 01/29/2022 Telephone Courtney Scott, Follow Up 01/27/2022 Refill Kassie Villegas, DO Refill Request (Amlodipine, Atorvastatin) 01/26/2022 Telephone Kassie Villegas, DO Follow Up 01/26/2022 Orders Only Sofia Quispe RN <No scans attached> 01/20/2022 Office Visit Courtney Scott, Follow Up 01/20/2022 Travel 01/14/2022 Telephone Yvrose Aparicio NP Appointment 01/13/2022 Hospital Encounter Courtney Scott M ultiple myeloma not MD having achieved remission (HC) 01/13/2022 Travel 01/06/2022 Anesthesia Event Lanny Mackay, BRIDGE IRONWORKER HELPER 01/06/2022 Surgery OJody Kendall, BIOPSY BONE MARROW PA 01/06/2022 Hospital Encounter Jessica Arellano NP Mul tiple myeloma not having achieved remission (HC) 01/06/2022 Travel 01/01/2022 Nurse/Clinic Staff Testing ( Pre-Procedure Only Testing ) 01/01/2022 Travel from Last 3 Months Immunizations Name Administration Dates Next Due AMB Influenza, IIV3 (Age >=3 03/09/2008 years)(Flu Clinic Only) COVID-19 vaccine (Moderna 11/03/2020, 10/06/2020 100mcg/0.5mL) PF, MDV Hepatitis B (Adult) 05/29/1997, 10/19/1996, 09/15/1996 Influenza A (H1N1), Inactivated (Age 1204/18/2009 >=3 Years) Influenza, High-dose Inactivated 01/22/2018, 03/11/2016, , 01/24/2014 Influenza, IIV3 (Age 6-35 mos) 02/27/2011 Influenza, IIV3 (Age >=3 years) 03/20/2015, 04/05/2013, 05/04, 02/27/2011, 02/26/2010, 01/30/2009, 03/09/2008, 04/09/2003 Influenza, Inactivated AIIV4 (Age 65+ 02/07/2021, 01/30/2020 Years) Preserv Free Influenza, Inactivated IIV3 (Age 65+ 01/19/2019, 01/11/2017 Years) Preserv Free Pneumococcal Poly,23-Valent 04/16/2017, 04/11/2010, 02/12/19 98 (Pneumovax) Pneumococcal conj 13-Valent (Prevnar 01/02/2015 13) Td (Age >=7 Years) 09/15/1996 Td, Preservative Free (age >= 7 08/11/2006 Years) Tdap 12/17/2014 Zoster (Zostavax-ZVL, live) 12/17/2014 Family History Medical History Relation Name Comments Heart Disease Brother 2 SD Other Father SPINAL MENINGITI S Diabetes Maternal Grandfather DOUBLE AMPU TATIONS Heart Disease Mother HEART FAILURE Cancer-breast No Family History Relation Name Status Comments Brother 1 Brother 2 Father Maternal Grandfather Mother Social History Tobacco Use Types Packs/Day Years Used Date Former Smoker Cigarettes 1 20 05/03/1966 - 0 05/03/1986 Smokeless Tobacco: Never Used Tobacco Cessation: Counseling Given: Yes Alcohol Use Standard Drinks/Week Comments Yes 0 (1 standard drink = 0.6 oz pure alcoho l) social/rare Alcohol Habits Answer Date Recorded How often do you have a drink containing alcohol? Monthly or less 08/22/2018 How many drinks containing alcohol do you have on a 1 or 2 08/22/2018 typical day when you are drinking? How often do you have six or more drinks on one Never 08/22/2018 occasion? Comment: social/rare 06/29/2017 Sex Assigned at Date Recorded Not on file COVID-19 Exposure Response Date Recorded In the last 10 days, have you been in contact No / Unsure 03/31/2022 10:58 AM TECHNOLOGY DIRECTOR with someone who was confirmed or suspected to have Coronavirus/COVID-19? Obstetrics History Para Term AB IAB SAB Ectopic Multiple Living Live Births 5 4 4 0 1 0 1 0 0 4 Date Outcome GA Total Labor/2nd/3rd Weight Sex Delivery Anes PTL Angie A 1 A5 Name Clin Labor SAB Term Term Term Term Last Filed Vital Signs Vital Sign Reading Time Taken Comments Blood Pressure 161/50 03/09/2022 2:00 PM TECHNOLOGY DIRECTOR Pulse 81 03/09/2022 5:02 PM TECHNOLOGY DIRECTOR Temperature 36.8 ??C (98.2 ??F) 03/09/2022 5:02 PM TECHNOLOGY DIRECTOR Respiratory Rate 20 03/09/2022 5:02 PM TECHNOLOGY DIRECTOR Oxygen Saturation 97% 03/09/2022 5:02 PM TECHNOLOGY DIRECTOR Inhaled Oxygen Concentration - - Weight 105.7 kg (233 lb) 03/03/2022 11:32 AM CDT Height 165.1 cm (5' 5) 02/25/2022 5:21 AM CDT Body Mass Index 38.77 02/25/2022 5:21 AM CDT Plan of Treatment Upcoming Encounters Date Type Specialty Care Team Description 04/07/2022 Office Visit Yvrose Aparicio, MIL[employer] SLAKER [address] [place], [place] [address] (Wo rk) 06/25/2022 Office Visit Kassie Villegas, DO [address] [place], [place] [address] (Wo rk) Health Maintenance Due Date Last Done Comments DEXA/DXA scan for age 65+ 01/31/2013 Zoster (shingles) series for age 1002/11/2015 12/17/2014 50+ (1 of 2) Mammogram for age 45-75 01/16/2016 01/15/2015, 07/24/2013, 07/24/2013, Additional history exists Medicare Wellness for age 65+ 2021 02/02/2020, 2014, 07/24/2013 Depression screening for age 12+ 02/05/2021 02/06/2020, 10/2019, 02/05/2020, Additional history exists BMI (ht and wt on same day) for 12/17/2021 12/17/2020, 08/31, age 18+ 05/23/2020, Additional history exists Influenza for age 65+ 01/01/2022 02/07/2021, 01/30/2020, 01/19/2019, Additional history exists Fecal testing non-DNA 10/27/2022 10/27/2021, 06/01/2017, (FIT,FOBT,iFOBT) for age 45-75 01/01/2015, Addit ional history exists Tetanus booster 12/17/2024 12/17/2014, 08/11/2006, 09/15/1996 Lipids for age 45-75 10/25/2026 10/25/2021, 07/07/2021, 12/20/2020, Additional history exists Hepatitis C screening for age Completed 07/25/2013 18-79 Tdap Completed 12/17/2014 Pneumococcal series for age 65+ Completed 04/16/2017, 06/2014, 04/11/2010, Additional history exists COVID-19 vaccine series Completed 02/05/2022, 06/10/2021, 11/03/2020, Additional history exists Medical Devices Implanted Type Area Art Gilder Device Shelf Model / Identifier Expiration Serial / Date Lot Graft Vasc 4-7mm 45cm Propaten Std Wall - [id number] Left: Arm W.L [place] And 07/27/2024 [id number] / Implanted: Qty: 1 on 07/01/2021 by Aviva byrd, Patrick Cantrell MD at [facility] [id number] / Procedures Procedure Name Priority Date/Time Associated Comments Diagnosis SCAN CORRESP-LABORATORY 04/01/2022 12:00 Results for this RESULTS AM TECHNOLOGY DIRECTOR procedure are i n the results section. IMMUNOFIXATION,SERUM Timed 03/31/2022 11:16 Multiple myeloma Results for this AM TECHNOLOGY DIRECTOR not having procedure are i n achieved remission the resul ts (HC) section. RED CELL MORPHOLOGY Timed 03/31/2022 11:16 Multiple myeloma Results for this AM TECHNOLOGY DIRECTOR not having procedure are i n achieved remission the resul ts (HC) section. PLATELET ESTIMATE Timed 03/31/2022 11:16 Multiple myeloma Re sults for this AM TECHNOLOGY DIRECTOR not having procedure are i n achieved remission the resul ts (HC) section. MANUAL DIFFERENTIAL Timed 03/31/2022 11:16 Multiple myeloma Results for this AM TECHNOLOGY DIRECTOR not having procedure are i n achieved remission the resul ts (HC) section. CBC WITH AUTO Timed 03/31/2022 11:16 Multiple myeloma Result s for this DIFFERENTIAL AM TECHNOLOGY DIRECTOR not having procedure are i n achieved remission the resul ts (HC) section. IMMUNOGLOBULINS,IGG/A/M Today 03/31/2022 11:16 Multiple myel cristofer Results for this AM TECHNOLOGY DIRECTOR not having procedure are i n achieved remission the resul ts (HC) section. COMP METABOLIC PANEL Today 03/31/2022 11:16 Multiple myeloma Results for this AM TECHNOLOGY DIRECTOR not having procedure are i n achieved remission the resul ts (HC) section. CBC WITH AUTO Today 03/31/2022 11:16 Multiple myeloma Result s for this DIFFERENTIAL AM TECHNOLOGY DIRECTOR not having procedure are i n achieved remission the resul ts (HC) section. ELP AND FREE LIGHT Today 03/31/2022 11:16 Multiple myeloma R esults for this CHAINS W REFLEX, BLOOD AM TECHNOLOGY DIRECTOR not having proce dure are in achieved remission the resul ts (HC) section. SCAN CORRESP-LABORATORY 03/30/2022 12:00 Results for this RESULTS AM TECHNOLOGY DIRECTOR procedure are i n the results section. SCAN CORRESP-LABORATORY 03/19/2022 12:00 Results for this RESULTS AM TECHNOLOGY DIRECTOR procedure are i n the results section. TROPONIN I STAT 03/09/2022 3:52 Results for this PM TECHNOLOGY DIRECTOR procedure are i n the results section. HEMOGLOBIN STAT 03/09/2022 3:52 Results for this PM TECHNOLOGY DIRECTOR procedure are i n the results section. TRANSFUSE RBC (NURSE STAT 03/09/2022 12:32 COMMUNICATION ORDER) PM TECHNOLOGY DIRECTOR XR CHEST 1 VIEW PORTABLE STAT 03/09/2022 10:19 Results for this AM TECHNOLOGY DIRECTOR procedure are i n the results section. RED BLOOD CELLS EA UNIT STAT 03/09/2022 9:56 R esults for this AM TECHNOLOGY DIRECTOR procedure are i n the results section. RBC W TYPE AND SCREEN STAT 03/09/2022 9:56 Res ults for this AM TECHNOLOGY DIRECTOR procedure are i n the results section. CWS PATH REVIEW STAT 03/09/2022 9:56 Results f or this HEMATOLOGY AM TECHNOLOGY DIRECTOR procedure are i n the results section. RED CELL MORPHOLOGY STAT 03/09/2022 9:56 Resul ts for this AM TECHNOLOGY DIRECTOR procedure are i n the results section. PLATELET ESTIMATE STAT 03/09/2022 9:56 Results for this AM TECHNOLOGY DIRECTOR procedure are i n the results section. MANUAL DIFFERENTIAL STAT 03/09/2022 9:56 Resul ts for this AM TECHNOLOGY DIRECTOR procedure are i n the results section. CBC WITH AUTO STAT 03/09/2022 9:56 Results for this DIFFERENTIAL AM TECHNOLOGY DIRECTOR procedure are i n the results section. BRAIN NATRIURETIC STAT 03/09/2022 9:56 Results for this PEPTIDE AM TECHNOLOGY DIRECTOR procedure are i n the results section. TROPONIN I STAT 03/09/2022 9:56 Results for this AM TECHNOLOGY DIRECTOR procedure are i n the results section. COMP METABOLIC PANEL STAT 03/09/2022 9:56 Resu lts for this AM TECHNOLOGY DIRECTOR procedure are i n the results section. CBC WITH AUTO STAT 03/09/2022 9:56 Results for this DIFFERENTIAL AM TECHNOLOGY DIRECTOR procedure are i n the results section. CBC WITH AUTO STAT 03/03/2022 11:18 Multiple myeloma Result s for this DIFFERENTIAL AM CDT not having procedure are i n achieved remission the resul ts (HC) section. IGG Today 03/03/2022 11:18 Multiple myeloma Results for this AM CDT not having procedure are i n achieved remission the resul ts (HC) section. PROTEIN ELP,SERUM Today 03/03/2022 11:18 Multiple myeloma Re sults for this AM CDT not having procedure are i n achieved remission the resul ts (HC) section. IMMUNOGLOBULINS FREE LT Today 03/03/2022 11:18 Multiple myel cristofer Results for this CHAIN SERUM AM CDT not having procedure are i n achieved remission the resul ts (HC) section. COMP METABOLIC PANEL STAT 03/03/2022 11:18 Multiple myeloma Results for this AM CDT not having procedure are i n achieved remission the resul ts (HC) section. CBC WITH AUTO STAT 03/03/2022 11:18 Multiple myeloma Result s for this DIFFERENTIAL AM CDT not having procedure are i n achieved remission the resul ts (HC) section. SCAN CORRESP-LABORATORY 03/02/2022 12:00 Results for this RESULTS AM CDT procedure are i n the results section. CT ABDOMEN PELVIS WO STAT 02/25/2022 7:00 Resu lts for this AM CDT procedure are i n the results section. COVID 19 STAT 02/25/2022 6:05 Results for this AM CDT procedure are i n the results section. COVID 19 COLLECTION STAT 02/25/2022 6:05 Resul ts for this AM CDT procedure are i n the results section. CBC WITH AUTO STAT 02/25/2022 5:34 Results for this DIFFERENTIAL AM CDT procedure are i n the results section. MAGNESIUM STAT 02/25/2022 5:34 Results for this AM CDT procedure are i n the results section. LACTATE VENOUS Today 02/25/2022 5:34 Results fo r this AM CDT procedure are i n the results section. LIPASE STAT 02/25/2022 5:34 Results for this AM CDT procedure are i n the results section. COMP METABOLIC PANEL STAT 02/25/2022 5:34 Resu lts for this AM CDT procedure are i n the results section. CBC WITH AUTO STAT 02/25/2022 5:34 Results for this DIFFERENTIAL AM CDT procedure are i n the results section. GLUCOSE METER Timed 02/16/2022 2:49 Results for this PM CDT procedure are i n the results section. GLUCOSE METER Timed 02/16/2022 11:18 Results fo r this AM CDT procedure are i n the results section. GLUCOSE METER Timed 02/16/2022 6:46 Results for this AM CDT procedure are i n the results section. HEMOGLOBIN Early AM 02/16/2022 5:23 Results for this AM CDT procedure are i n the results section. POTASSIUM Early AM 02/16/2022 5:23 Results for this AM CDT procedure are i n the results section. GLUCOSE METER Timed 02/15/2022 10:25 Results fo r this PM CDT procedure are i n the results section. GLUCOSE METER Timed 02/15/2022 6:13 Results for this PM CDT procedure are i n the results section. GLUCOSE METER Timed 02/15/2022 1:03 Results for this PM CDT procedure are i n the results section. GLUCOSE METER Timed 02/15/2022 9:40 Results for this AM CDT procedure are i n the results section. GLUCOSE METER Timed 02/15/2022 7:33 Results for this AM CDT procedure are i n the results section. GLUCOSE METER Timed 02/14/2022 9:13 Results for this PM CDT procedure are i n the results section. GLUCOSE METER Timed 02/14/2022 5:06 Results for this PM CDT procedure are i n the results section. GLUCOSE METER Timed 02/14/2022 11:49 Results fo r this AM CDT procedure are i n the results section. GLUCOSE METER Timed 02/14/2022 7:28 Results for this AM CDT procedure are i n the results section. GLUCOSE METER Timed 02/14/2022 6:40 Results for this AM CDT procedure are i n the results section. HBSAG (HBS) OMAIRA 02/14/2022 5:26 Results for this AM CDT procedure are i n the results section. EXTRA TUBE LAVENDER Today 02/14/2022 5:26 AM CDT BASIC METABOLIC PANEL Early AM 02/14/2022 5:26 Res ults for this AM CDT procedure are i n the results section. GLUCOSE METER Timed 02/13/2022 11:48 Results fo r this PM CDT procedure are i n the results section. BASIC METABOLIC PANEL STAT 02/13/2022 8:10 Res ults for this PM CDT procedure are i n the results section. HEMOGLOBIN STAT 02/13/2022 8:10 Results for this PM CDT procedure are i n the results section. BASIC METABOLIC PANEL STAT 02/13/2022 1:29 Res ults for this PM CDT procedure are i n the results section. HEMOGLOBIN STAT 02/13/2022 1:29 Results for this PM CDT procedure are i n the results section. EKG 12 LEAD STAT 02/13/2022 10:29 Results for this AM CDT procedure are i n the results section. GLUCOSE METER Routine 02/13/2022 8:00 Results for this AM CDT procedure are i n the results section. BASIC METABOLIC PANEL STAT 02/13/2022 7:51 Res ults for this AM CDT procedure are i n the results section. CBC WITH AUTO STAT 02/13/2022 7:49 Results for this DIFFERENTIAL AM CDT procedure are i n the results section. CBC WITH AUTO STAT 02/13/2022 7:49 Results for this DIFFERENTIAL AM CDT procedure are i n the results section. COVID 19 STAT 02/12/2022 4:45 Results for this PM CDT procedure are i n the results section. COVID 19 COLLECTION STAT 02/12/2022 4:45 Resul ts for this PM CDT procedure are i n the results section. CT ABDOMEN PELVIS WO STAT 02/12/2022 11:50 Res ults for this AM CDT procedure are i n the results section. EKG 12 LEAD STAT 02/12/2022 11:23 Results for this AM CDT procedure are i n the results section. MAGNESIUM STAT 02/12/2022 8:35 Results for this AM CDT procedure are i n the results section. CBC WITH AUTO STAT 02/12/2022 8:35 Multiple myeloma Results for this DIFFERENTIAL AM CDT not having procedure are i n achieved remission the resul ts (HC) section. CBC WITH AUTO STAT 02/12/2022 8:35 Multiple myeloma Results for this DIFFERENTIAL AM CDT not having procedure are i n achieved remission the resul ts (HC) section. COMP METABOLIC PANEL STAT 02/12/2022 8:35 Multiple myeloma Results for this AM CDT not having procedure are i n achieved remission the resul ts (HC) section. IMMUNOGLOBULINS FREE LT Routine 02/12/2022 8:35 Multiple myelo ma Results for this CHAIN SERUM AM CDT not having procedure are i n achieved remission the resul ts (HC) section. IMMUNOGLOBULINS,IGG/A/M Routine 02/12/2022 8:35 Multiple myelo ma Results for this AM CDT not having procedure are i n achieved remission the resul ts (HC) section. PROTEIN ELP,SERUM Routine 02/12/2022 8:35 Multiple myeloma Res ults for this AM CDT not having procedure are i n achieved remission the resul ts (HC) section. SCAN CORRESP-LABORATORY 02/11/2022 12:00 Results for this RESULTS AM CDT procedure are i n the results section. SCAN CORRESP-LABORATORY 02/04/2022 12:00 Results for this RESULTS AM CDT procedure are i n the results section. SCAN CORRESP-LABORATORY 01/22/2022 12:00 Results for this RESULTS AM CDT procedure are i n the results section. IMMUNOFIXATION,SERUM Routine 01/20/2022 4:07 Multiple myeloma Results for this PM CDT not having procedure are i n achieved remission the resul ts (HC) section. RED CELL MORPHOLOGY Routine 01/20/2022 4:07 Multiple myeloma R esults for this PM CDT not having procedure are i n achieved remission the resul ts (HC) section. PLATELET ESTIMATE Routine 01/20/2022 4:07 Multiple myeloma Res ults for this PM CDT not having procedure are i n achieved remission the resul ts (HC) section. MANUAL DIFFERENTIAL Routine 01/20/2022 4:07 Multiple myeloma R esults for this PM CDT not having procedure are i n achieved remission the resul ts (HC) section. CBC WITH AUTO Routine 01/20/2022 4:07 Multiple myeloma Results for this DIFFERENTIAL PM CDT not having procedure are i n achieved remission the resul ts (HC) section. COMP METABOLIC PANEL Routine 01/20/2022 4:07 Multiple myeloma Results for this PM CDT not having procedure are i n achieved remission the resul ts (HC) section. RETICULOCYTES Routine 01/20/2022 4:07 Multiple myeloma Results for this PM CDT not having procedure are i n achieved remission the resul ts (HC) section. CBC WITH AUTO Routine 01/20/2022 4:07 Multiple myeloma Results for this DIFFERENTIAL PM CDT not having procedure are i n achieved remission the resul ts (HC) section. ELP AND FREE LIGHT Routine 01/20/2022 4:07 Multiple myeloma Re sults for this CHAINS W REFLEX, BLOOD PM CDT not having proce dure are in achieved remission the resul ts (HC) section. MR SPINE THORACIC WWO Routine 01/13/2022 2:02 Multiple myeloma Results for this PM CDT not having procedure are i n achieved remission the resul ts (HC) section. MR SPINE LUMBAR WWO Routine 01/13/2022 1:49 Multiple myeloma R esults for this PM CDT not having procedure are i n achieved remission the resul ts (HC) section. BONE MARROW STUDY Today 01/06/2022 12:40 Multiple myeloma Re sults for this PM CDT not having procedure are i n achieved remission the resul ts (HC) section. BIOPSY BONE MARROW 01/06/2022 12:19 Multiple Myeloma PM CDT Case Notes Pathology and Lab confirmed for 12:00 start 12/31 RED CELL MORPHOLOGY Timed 01/06/2022 12:10 PM Multiple myelo ma Results for this CDT not having achieved procedur e are in remission (HC) the results section. PLATELET ESTIMATE Timed 01/06/2022 12:10 PM Multiple myeloma Results for this CDT not having achieved procedur e are in remission (HC) the results section. MANUAL DIFFERENTIAL Timed 01/06/2022 12:10 PM Multiple myelo ma Results for this CDT not having achieved procedur e are in remission (HC) the results section. CBC WITH AUTO Timed 01/06/2022 12:10 PM Multiple myeloma Res ults for this DIFFERENTIAL CDT not having achieved procedur e are in remission (HC) the results section. RETICULOCYTES Today 01/06/2022 12:10 PM Multiple myeloma Res ults for this CDT not having achieved procedur e are in remission (HC) the results section. CBC WITH AUTO Today 01/06/2022 12:10 PM Multiple myeloma Res ults for this DIFFERENTIAL CDT not having achieved procedur e are in remission (HC) the results section. BONE MARROW Timed 01/06/2022 9:15 AM Multiple myeloma DIFFERENTIAL CDT not having achieved remission (HC) SCAN 01/06/2022 12:00 AM Results for this CORRESP-LABORATORY CDT procedure are in RESULTS the results section. COVID 19 Routine 01/01/2022 2:09 PM Screening Results f or this CDT examination for procedure ar e in infectious disease the resul ts section. COVID 19 COLLECTION Routine 01/01/2022 2:09 PM Screening Re sults for this CDT examination for procedure ar e in infectious disease the resul ts section. from Last 3 Months Results SCAN CORRESP-LABORATORY RESULTS (04/01/2022 12:00 AM TECHNOLOGY DIRECTOR)Only the most recent of 8 resultswithin the time period is included. Narrative 04/01/2022 12:00 AM TECHNOLOGY DIRECTOR This result has an attachment that is no t available. Ordered by an unspecified provider. Other Clinical Staff OTHER (ABNORMAL) ELP AND FREE LIGHT CHAINS W REFLEX, BLOOD (03/31/2022 11:16 AM TECHNOLOGY DIRECTOR) Only the most recent of2 resultswithin the time period is included. Component Value Ref Test Analysis Performed At [facility] gist Range Method Time Signature PROTEIN,TOTAL 8.6 (H) 6.0 - 04/01/2022 [facility] 8.0 g/dL 3:14 PM TECHNOLOGY DIRECTOR LABORATORY-CE [facility]ATORY ELP,ALBUMIN 3.99 3.31 - 04/01/2022 [facility] 5.31 3:14 PM TECHNOLOGY DIRECTOR LABORATORY-CE g/dL NTRAL LABORATORY ELP,ALPHA 1 0.36 0.19 - 04/01/2022 [facility] 0.42 3:14 PM TECHNOLOGY DIRECTOR LABORATORY-CE g/dL NTRAL LABORATORY ELP,ALPHA 2 0.95 0.44 - 04/01/2022 [facility] 1.03 3:14 PM TECHNOLOGY DIRECTOR LABORATORY-CE g/dL NTRAL LABORATORY ELP,GAMMA 2.62 (H) 0.59 - 04/01/2022 [facility] 1.46 3:14 PM TECHNOLOGY DIRECTOR LABORATORY-CE g/dL NTRAL LABORATORY ELP,BETA 0.63 0.52 - 04/01/2022 [facility] 1.05 3:14 PM TECHNOLOGY DIRECTOR LABORATORY-CE g/dL NTRAL LABORATORY MONOCLONAL 2.31 <=0.00 04/01/2022 [facility] PEAK 1 g/dL 3:14 PM TECHNOLOGY DIRECTOR LABORATORY-CE NTRAL LABORATORY KAPPA FREE 280.61 (H) 0.33 - 04/01/2022 [facility] [place], 1.94 3:14 PM TECHNOLOGY DIRECTOR LABORATORY-CE S mg/dL [facility] LABORATORY LAMBDA FREE 3.04 (H) 0.57 - 04/01/2022 [facility] [place], 2.63 3:14 PM TECHNOLOGY DIRECTOR LABORATORY-CE S mg/dL NTRAL LABORATORY KAPPA/LAMBDA 92.31 (H) 0.26 - 04/01/2022 [facility] FLC RATIO 1.65 3:14 PM TECHNOLOGY DIRECTOR LABORATORY-CE NTRAL LABORATORY ELP Interval study shows an incr ease in magnitude of previously identified monoclonal peak. Previous Study: 2.02 gm/dL on 03/03/22. 04/01/2022 [facility] INTERP,SERUM 3:14 PM TECHNOLOGY DIRECTOR LABORATORY-CE Interpreted and electronically signed by: ROSALIND Concepcion MD LABORATORY Specimen Anatomical Collection Method Collection Time Receive d Time (Source) Location / / Volume Laterality Blood BLOOD SPECIMEN / Butterfly / 03/31/2022 11:16 022 Unknown Unknown AM TECHNOLOGY DIRECTOR 11:17 AM TECHNOLOGY DIRECTOR Courtney Scott MD CHEMISTRY Performing Organization Address City/State/ZIP Code Phon e Number [facility] [address] [place], [place] [id number] [address] [address] LABORATORY-CENTRAL 2000 LABORATORY (ABNORMAL) CBC WITH AUTO DIFFERENTIAL (03/31/2022 11:16 AM TECHNOLOGY DIRECTOR)Only the most recent of8 resultswithin the time period is included. [facility] Method Time Signature WHITE BLOOD 5.9 4.5 - 11.0 03/31/2022 [place] COUNT thou/cu mm 12:01 PM [facility] LABORATORY RED BLOOD COUNT 2.65 (L) 4.00 - 03/31/2022 [place] 5.20 12:01 PM [facility] mil/cu mm LABORATORY HEMOGLOBIN 9.1 (L) 12.0 - 03/31/2022 [place] 16.0 g/dL 12:01 PM [facility] LABORATORY HEMATOCRIT 29.1 (L) 33.0 - 03/31/2022 [place] 51.0 % 12:01 PM [facility] LABORATORY MCV 110 (H) 80 - 100 03/31/2022 [facility] fL 12:01 PM [facility] LABORATORY MCH 34.3 (H) 26.0 - 03/31/2022 [place] 34.0 pg 12:01 PM [facility] LABORATORY MCHC 31.3 (L) 32.0 - 03/31/2022 [place] 36.0 g/dL 12:01 PM [facility] LABORATORY RDW 18.9 (H) 11.5 - 03/31/2022 [place] 15.5 % 12:01 PM [facility] LABORATORY PLATELET COUNT 172 140 - 440 03/31/2022 [facility] thou/cu mm 12:01 PM [facility] LABORATORY MPV 10.1 6.5 - 11.0 03/31/2022 [facility] fL 12:01 PM [facility] LABORATORY Specimen Anatomical Collection Method Collection Time Receive d Time (Source) Location / / Volume Laterality Blood BLOOD SPECIMEN / Butterfly / 03/31/2022 11:16 022 Unknown Unknown AM TECHNOLOGY DIRECTOR 11:17 AM [facility] LABORATORY - 12:01 PM TECHNOLOGY DIRECTOR This procedure was originally ordered at [facility]. This procedure was originally ordered at [facility]. This procedure was originally ordered at [facility]. Courtney Scott MD HEMATOLOGY Performing Organization Address City/[facility]/ZIP Code Phon e Number [facility] LABORATORY [address] [place] [id number] RED CELL MORPHOLOGY (03/31/2022 11:16 AM TECHNOLOGY DIRECTOR)Only the most recent of4 results within the time period is included. [facility] Method Time Signature RBC COMMENT RBC RBC 03/31/2022 [place] morphology morphology 12:00 PM MEDICAL appears appears TECHNOLOGY DIRECTOR CENTER normal normal, RBC LABORATORY morphology within normal limits for newborns. Specimen Anatomical Collection Method Collection Time Receive d Time (Source) Location / / Volume Laterality Blood BLOOD SPECIMEN / Butterfly / 03/31/2022 11:16 022 Unknown Unknown AM TECHNOLOGY DIRECTOR 11:17 AM TECHNOLOGY DIRECTOR [facility] LABORATORY - 12:00 PM TECHNOLOGY DIRECTOR This procedure was originally ordered at [facility]. This procedure was originally ordered at [facility]. This procedure was originally ordered at [facility]. Courtney Scott MD HEMATOLOGY Performing Organization Address [facility] Phon e Number [facility] [address] [place] [id number] PLATELET ESTIMATE (03/31/2022 11:16 AM TECHNOLOGY DIRECTOR)Only the most recent of4 results within the time period is included. [facility] Method Time Signature PLATELET Adequate Adequate, No 03/31/2022 [place] ESTIMATE estimate 12:00 PM [facility] LABORATORY Specimen Anatomical Collection Method Collection Time Receive d Time (Source) Location / / Volume Laterality Blood BLOOD SPECIMEN / Butterfly / 03/31/2022 11:16 022 Unknown Unknown AM TECHNOLOGY DIRECTOR 11:17 AM TECHNOLOGY DIRECTOR [facility] LABORATORY - 12:00 PM TECHNOLOGY DIRECTOR This procedure was originally ordered at [facility]. This procedure was originally ordered at [facility]. This procedure was originally ordered at [facility]. Courtney Scott MD HEMATOLOGY Performing Organization Address City/[facility]/ZIP Code Phon e Number [facility] [address] [place] [address] MANUAL DIFFERENTIAL (03/31/2022 11:16 AM TECHNOLOGY DIRECTOR)Only the most recent of4 results within the time period is included. athologist Signature % NEUTROPHILS 63.0 % 03/31/2022 [place] 12:00 PM [facility] LABORATORY % LYMPHOCYTES 33.0 % 03/31/2022 [place] 12:00 PM [facility] LABORATORY % MONOCYTES 2.0 % 03/31/2022 [place] 12:00 PM [facility] LABORATORY % EOSINOPHILS 2.0 % 03/31/2022 [facility] 12:00 PM [facility] LABORATORY % BASOPHILS 0.0 % 03/31/2022 [facility] 12:00 PM [facility] LABORATORY NEUTROPHILS 3.7 1.7 - 7.0 03/31/2022 [facility] ABSOLUTE thou/cu mm 12:00 PM [facility] LABORATORY LYMPHOCYTES 1.9 0.9 - 2.9 03/31/2022 [facility] ABSOLUTE thou/cu mm 12:00 PM [facility] LABORATORY MONOCYTES 0.1 <0.9 03/31/2022 [facility] ABSOLUTE thou/cu mm 12:00 PM [facility] LABORATORY EOSINOPHILS 0.1 <0.5 03/31/2022 [facility] ABSOLUTE thou/cu mm 12:00 PM [facility] LABORATORY BASOPHILS 0.0 <0.3 03/31/2022 [place] ABSOLUTE thou/cu mm 12:00 PM [facility] LABORATORY Specimen Anatomical Collection Method Collection Time Receive d Time (Source) Location / / Volume Laterality Blood BLOOD SPECIMEN / Butterfly / 03/31/2022 11:16 022 Unknown Unknown AM TECHNOLOGY DIRECTOR 11:17 AM [facility] Narrative [facility] LAB[facility] - 12:00 PM TECHNOLOGY DIRECTOR This procedure was originally ordered at [facility]. This procedure was originally ordered at [facility]. This procedure was originally ordered at [facility]. Courtney Scott MD HEMATOLOGY Performing Organization Address City/State/ZIP Code Phon e Number [facility] [address] [place] [address] (ABNORMAL) IMMUNOFIXATION,SERUM (03/31/2022 11:16 AM TECHNOLOGY DIRECTOR)Only the most recent of 2 resultswithin the time period is included. Component Value Ref Test Analysis Performed At Patholo gist Range Method Time Signature IGG 3,174.48 (H) 610.30 - 04/01/2022 [facility] 1,616.00 3:14 PM TECHNOLOGY DIRECTOR LABORATORY-CE mg/dL [facility] LABORATORY IGA 82.97 (L) 84.50 - 04/01/2022 [facility] 499.00 3:14 PM TECHNOLOGY DIRECTOR LABORATORY-CE mg/dL [facility] LABORATORY IGM 21.30 (L) 35.00 - 04/01/2022 [facility] 242.00 3:14 PM TECHNOLOGY DIRECTOR LABORATORY-CE mg/dL [facility] LABORATORY IFIX Immunotyping on serum shows previously identified IgG [place] specificity monoclonal protein. 04/01/2022 [facility] INTERP,SERUM 3:14 PM TECHNOLOGY DIRECTOR LABORATORY-CE Interpreted and electronically signed by: NTRANAMIKA Concepcion MD LABORATORY Specimen Anatomical Collection Method Collection Time Receive d Time (Source) Location / / Volume Laterality Blood BLOOD SPECIMEN / Butterfly / 03/31/2022 11:16 022 Unknown Unknown AM TECHNOLOGY DIRECTOR 11:17 AM TECHNOLOGY DIRECTOR Courtney Scott MD CHEMISTRY Performing Organization Address City/State/ZIP Code Phon e Number [facility] [address] [place] [address] LABORATORY-CENTRAL 2000 LABORATORY (ABNORMAL) IMMUNOGLOBULINS,IGG/A/M (03/31/2022 11:16 AM TECHNOLOGY DIRECTOR)Only the most recent of2 resultswithin the time period is included. P athologist Signature IGM 20.71 (L) 35.00 - 04/01/2022 [facility] 242.00 10:11 AM TECHNOLOGY DIRECTOR LABORATORY-CENT mg/dL RAL LABORATORY IGA 82.32 (L) 84.50 - 04/01/2022 [facility] 499.00 10:11 AM TECHNOLOGY DIRECTOR LABORATORY-CENT mg/dL [facility] LABORATORY IGG 3,232.04 610.30 - 04/01/2022 [facility] (H) 1,616.00 10:11 AM TECHNOLOGY DIRECTOR LABORATORY-CENT mg/dL [facility] LABORATORY Specimen Anatomical Collection Method Collection Time Receive d Time (Source) Location / / Volume Laterality Blood BLOOD SPECIMEN / Butterfly / 03/31/2022 11:16 022 Unknown Unknown AM TECHNOLOGY DIRECTOR 11:17 AM TECHNOLOGY DIRECTOR Courtney Scott MD CHEMISTRY Performing Organization Address City/State/ZIP Code Phon e Number [facility] [address] [place] [address] LABORATORY-CENTRAL 2000 LABORATORY (ABNORMAL) COMP METABOLIC PANEL (03/31/2022 11:16 AM TECHNOLOGY DIRECTOR)Only the most recent of 6 resultswithin the time period is included. [facility] gist Method Time Signature SODIUM 134 (L) 135 - 145 03/31/2022 [place] mmol/L 12:16 PM [facility] LABORATORY POTASSIUM 4.1 3.5 - 5.0 03/31/2022 [place] mmol/L 12:16 PM [facility] LABORATORY CHLORIDE 104 98 - 110 03/31/2022 [place] mmol/L 12:16 PM [facility] LABORATORY CO2,TOTAL 20 (L) 21 - 31 03/31/2022 [place] mmol/L 12:16 PM [facility] LABORATORY ANION GAP 10 5 - 18 03/31/2022 [place] 12:16 PM [facility] LABORATORY GLUCOSE 179 (H) 65 - 100 03/31/2022 [place] mg/dL 12:16 PM [facility] LABORATORY CALCIUM 9.3 8.5 - 03/31/2022 [place] 10.5 12:16 PM [facility] mg/dL LABORATORY BUN 40 (H) 8 - 25 03/31/2022 [place] mg/dL 12:16 PM [facility] LABORATORY CREATININE 5.00 (H) 0.57 - 03/31/2022 [place] 1.11 12:16 PM [facility] mg/dL LABORATORY BUN/CREAT RATIO 8 (L) 10 - 20 03/31/2022 [place] 12:16 PM [facility] LABORATORY ALBUMIN 3.7 3.2 - 4.6 03/31/2022 [place] g/dL 12:16 PM [facility] LABORATORY PROTEIN,TOTAL 9.0 (H) 6.0 - 8.0 03/31/2022 [place] g/dL 12:16 PM [facility] LABORATORY GLOBULIN 5.3 (H) 2.0 - 3.7 03/31/2022 [place] g/dL 12:16 PM [facility] LABORATORY A/G RATIO 0.7 (L) 1.0 - 2.0 03/31/2022 [place] 12:16 PM [facility] LABORATORY BILIRUBIN,TOTAL 0.4 0.2 - 1.2 03/31/2022 [place] mg/dL 12:16 PM [facility] LABORATORY ALK PHOSPHATASE 100 50 - 136 03/31/2022 [place] IU/L 12:16 PM [facility] LABORATORY ALT (SGPT) 19 8 - 45 03/31/2022 [place] IU/L 12:16 PM [facility] LABORATORY AST (SGOT) 16 2 - 40 03/31/2022 [place] IU/L 12:16 PM [facility] LABORATORY eGFR 9 (L) >90 03/31/2022 [place] mL/min/1. 12:16 PM [facility] 73m2 LABORATORY Comment: As of 2021, eGFR is calcu lated by the CKD-EPI creatinine equation without race adjustment. eGFR can be inf luenced by muscle mass, exercise, and diet. The reported eGFR is an estimation only and is only applicable if the renal function is stable. Specimen Anatomical Collection Method Collection Time Receive d Time (Source) Location / / Volume Laterality Blood BLOOD SPECIMEN / Butterfly / 03/31/2022 11:16 022 Unknown Unknown AM TECHNOLOGY DIRECTOR 11:17 AM TECHNOLOGY DIRECTOR Courtney Scott MD CHEMISTRY Performing Organization Address City/State/ZIP Code Phon e Number [facility] [address] [place] [address] TRANSFUSE RBC (NURSE COMMUNICATION ORDER) (03/09/2022 4:52 PM TECHNOLOGY DIRECTOR) Specimen (Source) Anatomical Location Collection Method / Collectio n Time Received Time / Laterality Volume Blood Yolanda Bennett MD NURSING BLOOD BANK (ABNORMAL) TROPONIN I (03/09/2022 3:52 PM TECHNOLOGY DIRECTOR)Only the most recent of2 results within the time period is included. P athologist Signature TROPONIN I 0.091 (H) <0.034 03/09/2022 [place] ng/mL 4:20 PM [facility] LABORATORY Specimen Anatomical Collection Method Collection Time Receive d Time (Source) Location / / Volume Laterality Blood BLOOD SPECIMEN / Butterfly / 03/09/2022 3:52 PM 03/09 3:55 Unknown Unknown TECHNOLOGY DIRECTOR PM TECHNOLOGY DIRECTOR Yolanda Bennett MD CHEMISTRY Performing Organization Address City/State/ZIP Code Phon e Number [facility] [address] [place] [address] (ABNORMAL) HEMOGLOBIN (03/09/2022 3:52 PM TECHNOLOGY DIRECTOR)Only the most recent of4 results within the time period is included. athologist Signature HEMOGLOBIN 7.9 (L) 12.0 - 03/09/2022 [place] 16.0 g/dL 4:09 PM [facility] LABORATORY MCV 109 (H) 80 - 100 03/09/2022 [facility] fL 4:09 PM [facility] LABORATORY Specimen Anatomical Collection Method Collection Time Receive d Time (Source) Location / / Volume Laterality Blood BLOOD SPECIMEN / Butterfly / 03/09/2022 3:52 PM 03/09 3:55 Unknown Unknown TECHNOLOGY DIRECTOR PM TECHNOLOGY DIRECTOR Yolanda Bennett MD HEMATOLOGY Performing Organization Address City/State/ZIP Code Phon e Number [facility] [address] [place] [address] XR CHEST 1 VIEW PORTABLE (03/09/2022 10:19 AM TECHNOLOGY DIRECTOR) Anatomical Region Laterality Modality HEART, THORAX, CHEST Digital Radiography Specimen (Source) Anatomical Collection Method Collection Time Re ceived Time Location / / Volume Laterality 03/09/2022 11:04 AM TECHNOLOGY DIRECTOR Impressions 03/09/2022 11:04 AM TECHNOLOGY DIRECTOR No acute cardiopulmonary pathology. Dictated by Romie Carrillo MD @ 03/09/2022 11:04 :41 AM (Electronically Signed) Narrative 03/09/2022 11:04 AM TECHNOLOGY DIRECTOR For Patients: ??As a result of the Century Cures Act, medical imaging exams and procedure report s are released immediately into your [facility] medical record. ??You may view this report before your referring provider. ??If you have questions, please contact your health care provider. INDICATION: Difficulty breathing. TECHNIQUE: Chest 1 view. COMPARISON: None FINDINGS: Cardiovascular and mediastinum: Heart si ze and vasculature are normal in caliber and appearance. Mediastinum is within normal limits. Lungs and pleural spaces: Lungs are humza r. No sign of infiltrate or mass. No sign of pleural effusion. No pneumothorax. Bones and soft tissues: Degenerative spi ne and bilateral shoulder arthropathy Procedure Note Jos Carrillo MD - 03/09/2022F ormatting of this note might be different from the original. For Patients: As a result of the ntury Cures Act, medical imaging exams and procedure reports are released immediately into your electronic medical record. You may view this report before your referring provider. If you have questions, please contact [facility] health care provider. INDICATION: Difficulty breathing. TECHNIQUE: Chest 1 view. COMPARISON: None FINDINGS: Cardiovascular and mediastinum: Heart si ze and vasculature are normal in caliber and appearance. Mediastinum is within normal limits. Lungs and pleural spaces: Lungs are humza r. No sign of infiltrate or mass. No sign of pleural effusion. No pneumothorax. Bones and soft tissues: Degenerative spi ne and bilateral shoulder arthropathy IMPRESSION: No acute cardiopulmonary pathology. Dictated by Romie Carrillo MD @ 03/09/2022 11:04 :41 AM (Electronically Signed) Yolanda Bennett MD GENERAL IMAGING CWS PATH REVIEW HEMATOLOGY (03/09/2022 9:56 AM TECHNOLOGY DIRECTOR) Analysis Performed At [facility] logist Time Signature PATH COMMENT Reviewed: 03/10/2022 [facility] 3:27 PM TECHNOLOGY DIRECTOR LABORATORY-[place] [facility] LABORATORY Comment: Reviewed by KT on 03/10/2022 This is an appended report. ??These resu lts have been appended to a previously final verified report. Specimen Anatomical Collection Method Collection Time Receive d Time (Source) Location / / Volume Laterality Blood BLOOD SPECIMEN / Butterfly / 03/09/2022 9:56 AM 03/09 Unknown Unknown TECHNOLOGY DIRECTOR 10:07 AM TECHNOLOGY DIRECTOR Yolanda Bennett MD LABORATORY Performing Organization Address City/State/ZIP Code Phon e Number [facility] [address] [place] [address] LABORATORY-CENTRAL 2000 LABORATORY RBC W TYPE AND SCREEN (03/09/2022 9:56 AM TECHNOLOGY DIRECTOR) Patholo gist Method Time Signature ABORH B Rh 03/09/2022 [place] Positive 11:09 AM [facility] LABORATORY BLOOD BANK ANTIBODY Negative Negative 03/09/2022 [facility] SCREEN 11:09 AM [facility] LABORATORY BLOOD BANK SPECIMEN 03/12/22 03/09/2022 [place] EXPIRATION 23:59 11:09 AM [facility] MEDICAL DATE/TIME CENTER LABORATORY BLOOD BANK Specimen Anatomical Collection Method Collection Time Receive d Time (Source) Location / / Volume Laterality Blood BLOOD SPECIMEN / Butterfly / 03/09/2022 9:56 AM 03/09 Unknown Unknown TECHNOLOGY DIRECTOR 10:07 AM TECHNOLOGY DIRECTOR Yolanda Bennett MD BLOOD BANK Performing Organization Address City/[facility]/ZIP Code Phon e Number [facility] [address] [place] [address] BLOOD BANK (ABNORMAL) BRAIN NATRIURETIC PEPTIDE (03/09/2022 9:56 AM TECHNOLOGY DIRECTOR) P athologist Signature BRAIN BREANA 254 (H) <150 pg/mL 03/09/2022 [facility] PEPTIDE 10:57 AM [facility] LABORATORY Specimen Anatomical Collection Method Collection Time Receive d Time (Source) Location / / Volume Laterality Blood BLOOD SPECIMEN / [facility] / 03/09/2022 9:56 AM 03/09 Unknown Unknown TECHNOLOGY DIRECTOR 10:07 AM TECHNOLOGY DIRECTOR Yolanda Bennett MD CHEMISTRY Performing Organization Address City/[facility]/ZIP Code Phon e Number [facility] [address] [place] [address] RED BLOOD CELLS EA UNIT (03/09/2022 9:56 AM TECHNOLOGY DIRECTOR) Patholo gist Method Time Signature CROSSMATCH Compatible Compatible [facility] BLOOD BANK PRODUCT BLOOD B Rh Positive [facility] LABORATORY BLOOD BANK PRODUCT ID [id number] [facility] LAB[facility] BLOOD BANK PRODUCT STATUS Transfused [facility] BLOOD BANK PRODUCT RBC -1 LR [facility] LABORATORY BLOOD BANK PRODUCT CODE [id number] [facility] BLOOD BANK ISSUE 03/09/22 [facility] DATE/TIME 12:10 [facility] LABORAT[facility] BLOOD BANK Specimen (Source) Anatomical Location Collection Method / Collectio n Time Received Time / Laterality Volume Yolanda Bennett MD BLOOD BANK Performing Organization Address City/State/ZIP Code Phon e Number [facility] [address] [place] [address] BLOOD BANK (ABNORMAL) IMMUNOGLOBULINS FREE LT [place] SERUM (03/03/2022 11:18 AM CDT)Only the most recent of2 resultswithin the time period is included. Patholo gist Method Time Signature KAPPA FREE 220.63 (H) 0.33 - 03/04/2022 [facility] [place], S 1.94 mg/dL 9:37 AM CDT LABORATORY-C EN TRAL LABORATORY LAMBDA FREE 3.38 (H) 0.57 - 03/04/2022 [facility] [place], S 2.63 mg/dL 9:37 AM CDT LABORATORY-C EN [place]AL LABORATORY KAPPA/LAMBDA 65.28 (H) 0.26 - 03/04/2022 [facility] RATIO 1.65 9:37 AM CDT LABORATORY-[facility] LAB[facility]AT[facility] Specimen Anatomical Collection Method Collection Time Receive d Time (Source) Location / / Volume Laterality Blood BLOOD SPECIMEN / Butterfly / 03/03/2022 11:18 022 Unknown Unknown AM CDT 11:23 AM CDT Courtney Scott MD SEND OUTS Performing Organization Address City/[facility]/ZIP Code Phon e Number [facility] [address] [place] [address] LABORATORY-CENTRAL 2000 LABORATORY (ABNORMAL) IGG (03/03/2022 11:18 AM CDT) P athologist Signature IGG 2,619.79 610.30 - 03/04/2022 [facility] (H) 1,616.00 9:36 AM CDT LABORATORY-CENT mg/dL [facility] LABORATORY Specimen Anatomical Collection Method Collection Time Receive d Time (Source) Location / / Volume Laterality Blood BLOOD SPECIMEN / [place]fly / 03/03/2022 11:18 022 Unknown Unknown AM CDT 11:23 AM CDT Courtney Scott MD CHEMISTRY Performing Organization Address City/State/ZIP Code Phon e Number [facility] [address] [place] [address] LABORATORY-CENTRAL 1999 LABORATORY (ABNORMAL) PROTEIN ELP,SERUM (03/03/2022 11:18 AM CDT)Only the most recent of2 resultswithin the time period is included. Component Value Ref Test Analysis Performed At [facility] Range Method Time Signature PROTEIN,TOTAL 7.6 6.0 - 03/04/2022 [facility] 8.0 g/dL 6:07 PM CDT LABORATORY-CE [facility] LABORATORY ELP,ALBUMIN 3.55 3.31 - 03/04/2022 [facility] 5.31 6:07 PM CDT LABORATORY-CE g/dL [facility] LABORAT[facility] ELP,ALPHA 1 0.38 0.19 - 03/04/2022 [facility] 0.42 6:07 PM CDT LABORATORY-CE g/dL [facility] ELP,ALPHA 2 0.79 0.44 - 03/04/2022 [facility] 1.03 6:07 PM CDT LABORATORY-CE g/dL [facility] ELP,GAMMA 2.31 (H) 0.59 - 03/04/2022 [facility] 1.46 6:07 PM CDT LABORATORY-CE g/dL [facility] ELP,BETA 0.54 0.52 - 03/04/2022 [facility] 1.05 6:07 PM CDT LABORATORY-CE g/dL [facility] LABORAT[facility] MONOCLONAL 2.02 <=0.00 03/04/2022 [facility] PEAK 1 g/dL 6:07 PM CDT LABORATORY-CE [facility] LABORATORY ELP Interval study shows an incr ease in magnitude of previously identified monoclonal peak. Previous Study: 1.82 gm/dL on 02/12/22. 03/04/2022 [facility] INTERP,SERUM 6:07 PM CDT LABORATORY-CE Interpreted and electronically signed by: ROSALIND Concepcion MD LABORATORY Specimen Anatomical Collection Method Collection Time Receive d Time (Source) Location / / Volume Laterality Blood BLOOD SPECIMEN / Butterfly / 03/03/2022 11:18 03/03/ 022 Unknown Unknown AM CDT 11:23 AM CDT Courtney Scott MD CHEMISTRY Performing Organization Address City/State/ZIP Code Phon e Number [facility] [address] [place] [address] LABORATORY-CENTRAL [address] ABDOMEN PELVIS WO (02/25/2022 7:00 AM CDT)Only the most recent of2 results within the time period is included. Anatomical Region Laterality Modality Abdomen, Pelvis, AORTA, LIVER, SPLEEN Co mputed Tomography Specimen (Source) Anatomical Collection Method Collection Time Re ceived Time Location / / Volume Laterality 02/25/2022 7:52 AM CDT Impressions 02/25/2022 7:52 AM CDT 1. No acute findings in the abdomen or pelvis on this noncontrast exam. 2. Resolution of previously seen subtle inflammation about the sigmoid colon. No evidence of diverticulitis on today`s exam. Mild amount of formed stool. 3. Mild hepatosplenomegaly. Please note that all CT scans at this [facility] use dose modulation, iterative reconstruction, and/or weight-based dosing when appropriate to reduce radiation dose to as low as reasonably achievable. Dictated by Liseth Dyer MD @ 02/25/2022 7:52:30 AM (Electronically Signed) Narrative 02/25/2022 7:52 AM CDT For Patients: ??As a result of the Cures Act, medical imaging exams and procedure report s are released immediately into your [facility] medical record. ??You may view this report before your referring provider. ??If you have questions, please contact your health care provider. INDICATION: Recent diverticulitis, persistent abdomi nal pain, nausea, diarrhea. History of multiple myeloma. TECHNIQUE: CT of the abdomen and pelvis without int ravenous contrast. Coronal and sagittal reconstructions. COMPARISON: CT of the abdomen and pelvis 02/12/2022. FINDINGS: The liver is enlarged measuring 20 cm in length. The spleen is enlarged measuring 13.5 cm in length. Calcified splenic granulomas. Cholecystectomy. Stable mild dilation of the common bile duct likely re lated to post cholecystectomy state. The unenhanced pancreas and adrenal glands are normal in appearance. No hydronephrosis or ureteral dilation. No obstructing urinary calculi identified. No significant bladder wall thickening. Hysterectomy. No bowel dilation. Mild amount of formed stool throughout the colon. The colon was previously fluid-filled. Colonic diverticulosis without evidence of diverticulitis. Resolution of previously seen subtl e inflammation about the sigmoid colon. The appendix is not identified, however there are no secondary signs of inflammation in the right lower quadrant. No intraperitoneal free air or fluid. Status post ventral hernia repair with m esh. There is a small fat containing ventral hernia just superior to the mesh. Small fat containing right inguinal hernia. No lymphadenopathy. Degenerative change s of the spine. Stable mild reticular sc arring in lung bases. Calcified granuloma left lower lobe. Extensive coronary artery and aortoiliac vascular calcifications. Procedure Note Liseth Dyer MD - 02/25/2022Formatt ing of this note might be different from the original. For Patients: As a result of the ntury Cures Act, medical imaging exams and procedure reports are released immediately into your electronic medical record. You may view this report before your referring provider. If you have questions, please contact [facility] health care provider. INDICATION: Recent diverticulitis, persistent abdomi nal pain, nausea, diarrhea. History of multiple myeloma. TECHNIQUE: CT of the abdomen and pelvis without int ravenous contrast. Coronal and sagittal reconstructions. COMPARISON: CT of the abdomen and pelvis 02/12/2022. FINDINGS: The liver is enlarged measuring 20 cm in length. The spleen is enlarged measuring 13.5 cm in length. Calcified splenic granulomas. Cholecystectomy. Stable mild dilation of the common bile duct likely related to post cholecystectomy state. T he unenhanced pancreas and adrenal glands are normal in appearance. No hydronephrosis or ureteral dilation. No obstructing urinary calculi identified. No significant bladder wall thickening. Hysterectomy. No bowel dilation. Mild amount of formed stool throughout the colon. The colon was previously fluid-filled. Colonic diverticulosis without evidence of diverticulitis. Resolution of previously seen subtle inflammation about the sigmoid colon. The appendix is not i dentified, however there are no secondary signs of inflammation in the right lower quadrant. No intraperitoneal free air or fluid. Status post ventral hernia repair with m esh. There is a small fat containing ventral hernia just superior to the mesh. Small fat containing right inguinal hernia. No lymphadenopathy. Degenerative changes of the spine. Stable mild reticular scarring in lung bases. Calcified granuloma left lower lobe. Extensive coronary artery and aortoiliac vascular calcifications. IMPRESSION: 1. No acute findings in the abdomen or p renetta on this noncontrast exam. 2. Resolution of previously seen subtle inflammation about the sigmoid colon. No evidence of diverticulitis on today`s exam. Mild amount of formed stool. 3. Mild hepatosplenomegaly. Please note that all CT scans at this [facility] use dose modulation, iterative reconstruction, and/or weight-based dosing when appropriate to reduce radiation dose to as low as reasonably achievable. Dictated by Liseth Dyer MD @ 02/25/2022 7:52:30 AM (Electronically Signed) Le Guzman MD CT COVID 19 (02/25/2022 6:05 AM CDT) [facility] Method Time Signature COVID 19 Not detected Not detected 02/25/2022 [facility] 6:55 AM CDT [facility] LABORATORY Specimen Anatomical Location / Collection Method Collection [place] Received Time (Source) Laterality / Volume Other SPECIMEN FROM Non-Blood / 02/25/2022 6:05 02/25/2022 6:33 NASOPHARYNGEAL Unknown AM CDT AM CDT STRUCTURE / Unknown Narrative [facility] - 6:55 AM CDT This test has been authorized by FDA und er an Emergency Use Authorization (EUA). This test is only authorized for the duration of time the declaration that circumstances exist justifying the authorization of th e emergency use of in vitro diagnostic tests for detection of SARS-CoV-2 virus and/or diagnosis of COVID-19 infection under section 564(b)(1) of the Act, 21 U.S.C. 360bbb-3(b) (1), unless the authorization is terminated or revoked sooner. Le Guzman MD MICROBIOLOGY Performing Organization Address City/[facility] Code [facility] e [facility] LABORATORY [address] [place] [address] COVID 19 COLLECTION (02/25/2022 6:05 AM CDT)Only the most recent of3 results within the time period is included. [facility] Method Time Signature TESTING [facility] 02/25/2022 [place] [facility] Laboratory 6:33 AM T [facility] Comment: Specimen submitted to [facility] for testing. Specimen Anatomical Location / Collection Method Collection [place] Received Time (Source) Laterality / Volume Other SPECIMEN FROM Non-Blood / 02/25/2022 6:05 02/25/2022 6:32 NASOPHARYNGEAL Unknown AM CDT AM CDT STRUCTURE / Unknown Le Guzman MD SEND OUTS Performing Organization Address City/State/ZIP Code Phon e Number [facility] LABORATORY [address] [place] [address] (ABNORMAL) LACTATE VENOUS (02/25/2022 5:34 AM CDT) athologist Signature LACTATE,VENOUS 3.3 (H) 0.5 - 2.0 02/25/2022 [place] mmol/L 6:09 AM CDT [facility] Specimen Anatomical Collection Method Collection Time Receive d Time (Source) Location / / Volume Laterality Blood BLOOD SPECIMEN / Butterfly / 02/25/2022 5:34 AM 02/25 5:36 Unknown Unknown CDT AM CDT Le Guzman MD CHEMISTRY Performing Organization Address City/[facility]/ZIP Code Phon e Number [facility] [address] [place] [address] (ABNORMAL) MAGNESIUM (02/25/2022 5:34 AM CDT)Only the most recent of2 results within the time period is included. athologist Signature MAGNESIUM 1.5 (L) 1.6 - 2.6 02/25/2022 [place] mg/dL 5:58 AM T [facility] Specimen Anatomical Collection Method Collection Time Receive d Time (Source) Location / / Volume Laterality Blood BLOOD SPECIMEN / Butterfly / 02/25/2022 5:34 AM 02/25 5:36 Unknown Unknown CDT AM CDT Le Guzman MD CHEMISTRY Performing Organization Address City/[facility]/ZIP Code Phon e Number [facility] [address] [place] [address] (ABNORMAL) LIPASE (02/25/2022 5:34 AM CDT) athologist Signature LIPASE 100.1 (H) 8.0 - 78.0 02/25/2022 [place] IU/L 6:00 AM CDT [facility] Specimen Anatomical Collection Method Collection Time Receive d Time (Source) Location / / Volume Laterality Blood BLOOD SPECIMEN / Butterfly / 02/25/2022 5:34 AM 02/25 5:36 Unknown Unknown CDT AM CDT Le Guzman MD CHEMISTRY Performing Organization Address City/State/ZIP Code Phon e Number [facility] [address] [place] [address] (ABNORMAL) GLUCOSE METER (02/16/2022 2:49 PM CDT)Only the most recent of15 resultswithin the time period is included. P athologist Signature GLUCOSE METER 248 (H) 65 - 100 02/16/2022 [facility] mg/dL 2:53 PM CDT LABORATORY Specimen Anatomical Collection Method Collection Time Receive d Time (Source) Location / / Volume Laterality Blood BLOOD SPECIMEN / 02/16/2022 2:49 PM 02/16 2:53 Unknown CDT PM CDT Albertina [facility] CHEMISTRY Performing Organization Address City/[facility]/ZIP Code Phon e Number [facility] LABORATORY INTERNAL ZIP [address] [place] [address] POTASSIUM (02/16/2022 5:23 AM CDT) athologist Signature POTASSIUM 4.9 3.5 - 5.0 02/16/2022 [facility] mmol/L 8:35 AM CDT LABORATORY Specimen Anatomical Collection Method Collection Time Receive d Time (Source) Location / / Volume Laterality Blood BLOOD SPECIMEN / Line/Port / 02/16/2022 5:23 AM 02/16 5:45 Unknown Unknown CDT AM CDT Darrel Delgadillo MD CHEMISTRY Performing Organization Address City/[facility]/ZIP Code Phon e Number [facility] LABORATORY [place]NAL ZIP [address] [place] [address] EXTRA TUBE LAVENDER (02/14/2022 5:26 AM CDT) Specimen Anatomical Collection Method Collection Time Receive d Time (Source) Location / / Volume Laterality Blood BLOOD SPECIMEN / Butterfly / 02/14/2022 5:26 AM 02/14 6:12 Unknown Unknown CDT AM CDT Caro Rodriguez MD LABORATORY Performing Organization Address City/State/ZIP Code Phon e Number [facility] LABORATORY [place]NAL ZIP [address] [place] [address] HBSAG (HBS) (02/14/2022 5:26 AM CDT) [facility] Method Time Signature HBSAG Nonreactive Nonreactive 02/16/2022 [facility] 9:58 AM CDT LABORATORY-[facility] TR[facility] LABORATORY Specimen Anatomical Collection Method Collection Time Receive d Time (Source) Location / / Volume Laterality Blood BLOOD SPECIMEN / Butterfly / 02/14/2022 5:26 AM 02/14 6:06 Unknown Unknown CDT AM CDT Gabriele Tariq RN SEND OUTS Performing Organization Address City/State/ZIP Code Phon e Number [facility] [address] [place] [address] LABORATORY-CENTRAL 2000 LABORATORY (ABNORMAL) Basic Metabolic Panel (02/14/2022 5:26 AM CDT)Only the most recent of 4 resultswithin the time period is included. [facility] Method Time Signature SODIUM 132 (L) 135 - 145 02/14/2022 [facility] mmol/L 7:10 AM CDT LABORATORY POTASSIUM 5.1 (H) 3.5 - 5.0 02/14/2022 [facility] mmol/L 7:10 AM CDT LABORATORY CHLORIDE 98 98 - 110 02/14/2022 [facility] mmol/L 7:10 AM CDT LABORATORY CO2,TOTAL 13 (L) 21 - 31 02/14/2022 [facility] mmol/L 7:10 AM CDT LABORATORY ANION GAP 21 (H) 5 - 18 02/14/2022 [facility] 7:10 AM CDT LABORATORY GLUCOSE 185 (H) 65 - 100 02/14/2022 [facility] mg/dL 7:10 AM CDT LABORATORY CALCIUM 9.2 8.5 - 02/14/2022 [facility] 10.5 7:10 AM CDT LABORATORY mg/dL BUN 107 (H) 8 - 25 02/14/2022 [facility] mg/dL 7:10 AM CDT LABORATORY CREATININE 12.75 (HH) 0.57 - 02/14/2022 [facility] 1.11 7:10 AM CDT LABORATORY mg/dL BUN/CREAT RATIO 8 (L) 10 - 20 [facility] AM CDT LABORATORY eGFR 3 (L) >90 02/14/2022 [facility] mL/min/1. 7:10 AM CDT LABORATORY 73m2 Comment: As of 2021, eGFR is calcu lated by the CKD-EPI creatinine equation without race adjustment. eGFR can be inf luenced by muscle mass, exercise, and diet. The reported eGFR is an estimation only and is only applicable if the renal function is stable. Specimen Anatomical Collection Method Collection Time Receive d Time (Source) Location / / Volume Laterality Blood BLOOD SPECIMEN / Butterfly / 02/14/2022 5:26 AM 02/14 6:06 Unknown Unknown CDT AM CDT Caro Rodriguez MD CHEMISTRY Performing Organization Address City/[facility]/ZIP Code Phon e Number [facility] LABORATORY [place]IP [address] [place] [address] EKG 12 LEAD (02/13/2022 10:29 AM CDT)Only the most recent of2 resultswithin the time period is included. Patholo gist Method Time Signature Interpretation Sinus rhythm with marked sinus arrhythmia BEYOND NOW ST & T wave abnormality, consider lateral ischemia Abnormal ECG No previous ECGs available Ventricular Rate 92 BPM BEYOND NOW Atrial Rate 92 BPM [place] NOW P-R Interval 158 ms BEYOND NOW QRS Duration 76 ms BEYOND NOW QT 402 ms [place] NOW QTc 497 ms BEYOND NOW P [place] 90 degrees BEYOND NOW R [place] 20 degrees BEYOND NOW T [place] 121 degrees BEYOND NOW Specimen Anatomical Collection Method Collection Time Receive d Time (Source) Location / / Volume Laterality 02/13/2022 10:29 02/13/2022 1:47 AM CDT PM CDT Yolanda Bennett MD EKG ORD Performing Organization Address City/[facility]/ZIP Code Phon e Number [place], [place] COVID 19 (02/12/2022 4:45 PM CDT) Analysis Performed At Patho logist Time Signature COVID 19 Negative Negative 02/12/2022 [place] [facility] 7:30 PM CDT [facility] Comment: All PCR tests are subject to fa lse negative result due to variability in viral load and collection technique. A n egative result does not rule out a SARS-CoV-2 infection. Clinical correlation required . Specimen Anatomical Location / Collection Method Collection [place] Received Time (Source) Laterality / Volume Other SPECIMEN FROM Non-Blood / 02/12/2022 4:45 02/12/2022 4:52 NASOPHARYNGEAL Unknown PM CDT PM CDT STRUCTURE / Unknown Narrative [facility] - 7:30 PM CDT This test has been authorized by FDA und er an Emergency Use Authorization (EUA). This test is only authorized for the duration of time the declaration that circumstances exist justifying the authorization of th e emergency use of in vitro diagnostic tests for detection of SARS-CoV-2 virus and/or diagnosis of COVID-19 infection under section 564(b)(1) of the Act, 21 U.S.C. 360bbb-3(b) (1), unless the authorization is terminated or revoked sooner. Pennie HOROWITZ MICROBIOLOGY Performing Organization Address City/State/ZIP Code Phon e Number [facility]OR[facility] [address] [place] [address] (ABNORMAL) RETICULOCYTES (01/20/2022 4:07 PM CDT)Only the most recent of2 resultswithin the time period is included. Analysis Performed At Patho logist Time Signature RETIC% 4.2 (H) 0.5 - 1.5 01/21/2022 [facility] % 4:56 PM CDT LABORATORY-[place] TRAL LABORATORY RETIC 0.12 (H) 0.03 - 01/21/2022 [facility] ([facility]SOLUTE) 0.08 4:56 PM CDT LABORATORY-[place] mil/cu mm TRAL LABORATORY Specimen Anatomical Collection Method Collection Time Receive d Time (Source) Location / / Volume Laterality Blood BLOOD SPECIMEN / Butterfly / 01/20/2022 4:07 PM 01/20 4:12 Unknown Unknown CDT PM CDT Courtney Scott MD HEMATOLOGY Performing Organization Address City/State/ZIP Code Phon e Number [facility] [address] [place] [address] LABORATORY-CENTRAL [address] LABORATORY MR SPINE THORACIC WWO (01/13/2022 2:02 PM CDT) Anatomical Region Laterality Modality Spine, THORACIC SPINE Magnetic Resonance Specimen (Source) Anatomical Collection Method Collection Time Re ceived Time Location / / Volume Laterality 01/14/2022 10:32 AM CDT Impressions 01/14/2022 10:32 AM CDT 1. Normal alignment. No fractures. 2. Normal marrow signal. Normal cord sig nal. No intradural mass or lesion. 3. No suspicious osseous lesions 4. No abnormal enhancement. 5. No spinal canal or neural foraminal n arrowing at all levels. Dictated by Ladarius Thomas MD @ 01/14/2022 10: 32:50 AM (Electronically Signed) Narrative 01/14/2022 10:32 AM CDT For Patients: ??As a result of the Cures Act, medical imaging exams and procedure report s are released immediately into your [facility] [employer] medical record. ??You may view this report before your referring provider. ??If you have questions, please contact your health care provider. INDICATION: Multiple myeloma. Increased back pain. COMPARISON: 05/09/2018. TECHNIQUE: Sagittal T1, T2, and STIR sequences. Axi al T2/gradient sequences. Post gadolinium T1 weighted sequences. FINDINGS: Normal vertebral body and facet alignmen t. No fractures. No vertebral body loss of height. No spondylolisthesis. No ligamentous injury. Normal marrow signal. No suspicious osse ous lesions. Normal cord signal. No intradural mass or lesion. No abnormal enhancement. No significant spondylotic changes. No p rominent disc protrusions or herniations. No spinal canal or neural foraminal narr owing at all levels of the thoracic spine. Normal paraspinal soft tissues. Procedure Note Ladarius Thomas MD, PhD - 2 For Patients: As a result of the Cures Act, medical imaging exams and procedure reports are released immediately into your electronic medical record. You may view this report before your referring provider. If you have questions, please contact yo health care provider. INDICATION: Multiple myeloma. Increased back pain. COMPARISON: 05/09/2018. TECHNIQUE: Sagittal T1, T2, and STIR sequences. Axi al T2/gradient sequences. Post gadolinium T1 weighted sequences. FINDINGS: Normal vertebral body and facet alignmen t. No fractures. No vertebral body loss of height. No spondylolisthesis. No ligamentous injury. Normal marrow signal. No suspicious osse ous lesions. Normal cord signal. No intradural mass or lesion. No abnormal enhancement. No significant spondylotic changes. No p rominent disc protrusions or herniations. No spinal canal or neural foraminal narr owing at all levels of the thoracic spine. Normal paraspinal soft tissues. IMPRESSION: 1. Normal alignment. No fractures. 2. Normal marrow signal. Normal cord sig nal. No intradural mass or lesion. 3. No suspicious osseous lesions 4. No abnormal enhancement. 5. No spinal canal or neural foraminal n arrowing at all levels. Dictated by Ladarius Thomas MD @ 01/14/2022 10: 32:50 AM (Electronically Signed) Courtney Scott MD MR MR SPINE LUMBAR WWO (01/13/2022 1:49 PM CDT) Anatomical Region Laterality Modality Spine, LUMBAR SPINE Magnetic Resonance Specimen (Source) Anatomical Collection Method Collection Time Re ceived Time Location / / Volume Laterality 01/14/2022 10:47 AM CDT Impressions 01/14/2022 10:47 AM CDT 1. Motion artifact 2. Partially visualized heterogeneous ST IR hyperintensity involving the posterior right brandon sacrum with corresponding enhancement. Subtle cortical irregularity. Overall, findings likely represent sacral insufficiency fracture. 3. No fractures of the lumbar vertebral bodies. 4. No suspicious osseous lesions. No abn ormal enhancement 5. At L3-4, moderate narrowing of spinal canal. Mild narrowing of the bilateral neural foramina 6. At L4-5, moderate to severe narrowing of spinal canal. Impingement of the traversing L5 nerve roots. Mild narrowing of the bilateral neural foramina 7. At L5-S1, mild narrowing of the bilat eral neural foramina Dictated by Ladarius Thomas MD @ 01/14/2022 10: 47:15 AM (Electronically Signed) Narrative 01/14/2022 10:47 AM CDT For Patients: ??As a result of the 21st Century Cures Act, medical imaging exams and procedure report s are released immediately into your [facility]. ??You may view this report before your referring provider. ??If you have questions, please contact your health care provider. INDICATION: Multiple myeloma. Low back pain. COMPARISON: 03/04/2010. TECHNIQUE: Sagittal T1, T2, and STIR sequences. Axi al T1 and T2 weighted sequences. Post gadolinium T1 weighted sequences. FINDINGS: Motion artifact. Normal vertebral body alignment. No frac tures. No vertebral body loss of height. No spondylolisthesis. No ligamentous injury. There is heterogeneous STIR hyperintense involving the right brandon sacrum (series 5, image 3) with corresponding enhancement. Subtle cortical irregularity on axial imaging. Findings likely represent a sacral insufficiency fracture. No abnormal edema involving the left hem i sacrum. No suspicious osseous lesions. Normal co nus terminates at L1. No intradural mass or lesion. [id number]: No spinal canal or neural foraminal narrowing. L1-2: No narrowing of spinal canal. No n eural foraminal narrowing. L2-3: Disc generation. Posterior disc bu lge. Moderate narrowing of spinal canal. Mild to moderate narrowing of the right neural foramen. No narrowing of the left neural foramen. Mild facet arthropathy. L3-4: Disc degeneration and posterior di sc bulge. Combined of facet arthropathy, there is moderate narrowing of spinal canal. Mild narrowing of the bilateral foramina. Mild facet arthropathy. L4-5: Disc degeneration posterior disc h erniation. Combined facet arthropathy, there is moderate severe narrowing of spinal canal. Impingement of the traversing L5 nerve roots. Mild narrowing of bilateral foramina. Moderate facet arthropathy. L5-S1: Disc degeneration posterior disc bulge. No narrowing of spinal canal. No impingement of the traversing S1 nerve roots. Mild narrowing of bilateral foramina. Moderate arthropathy. Degenerative changes of the SI joints. Normal paraspinal soft tissues. Procedure Note Ladarius Thomas MD, PhD - 2 For Patients: As a result of the ntury Cures Act, medical imaging exams and procedure reports are released immediately into your electronic medical record. You may view this report before your referring provider. If you have questions, please contact [facility] care provider. INDICATION: Multiple myeloma. Low back pain. COMPARISON: 03/04/2010. TECHNIQUE: Sagittal T1, T2, and STIR sequences. Axi al T1 and T2 weighted sequences. Post gadolinium T1 weighted sequences. FINDINGS: Motion artifact. Normal vertebral body alignment. No frac tures. No vertebral body loss of height. No spondylolisthesis. No ligamentous injury. There is heterogeneous STIR hyperintense involving the right brandon sacrum (series 5, image 3) with corresponding enhancement. Subtle cortical irregularity on axial imaging. Findings likely represent a sacral insufficiency fracture. No abnormal edema involving the left hem i sacrum. No suspicious osseous lesions. Normal co nus terminates at L1. No intradural mass or lesion. [id number]: No spinal canal or neural foraminal narrowing. L1-2: No narrowing of spinal canal. No n eural foraminal narrowing. L2-3: Disc generation. Posterior disc bu lge. Moderate narrowing of spinal canal. Mild to moderate narrowing of the right neural foramen. No narrowing of the left neural foramen. Mild facet arthropathy. L3-4: Disc degeneration and posterior di sc bulge. Combined of facet arthropathy, there is moderate narrowing of spinal canal. Mild narrowing of the bilateral foramina. Mild facet arthropathy. L4-5: Disc degeneration posterior disc h erniation. Combined facet arthropathy, there is moderate severe narrowing of spinal canal. Impingement of the traversing L5 nerve roots. Mild narrowing of bilateral foramina. Moderate facet arthropathy. L5-S1: Disc degeneration posterior disc bulge. No narrowing of spinal canal. No impingement of the traversing S1 nerve roots. Mild narrowing of bilateral foramina. Moderate arthropathy. Degenerative changes of the SI joints. Normal paraspinal soft tissues. IMPRESSION: 1. Motion artifact 2. Partially visualized heterogeneous ST IR hyperintensity involving the posterior right brandon sacrum with corresponding enhancement. Subtle cortical irregularity. Overall, findings likely represent sacral insufficiency fracture. 3. No fractures of the lumbar vertebral bodies. 4. No suspicious osseous lesions. No abn ormal enhancement 5. At L3-4, moderate narrowing of spinal canal. Mild narrowing of the bilateral neural foramina 6. At L4-5, moderate to severe narrowing of spinal canal. Impingement of the traversing L5 nerve roots. Mild narrowing of the bilateral neural foramina 7. At L5-S1, mild narrowing of the bilat eral neural foramina Dictated by Ladarius Thomas MD @ 01/14/2022 10: 47:15 AM (Electronically Signed) Courtney Scott MD MR BONE MARROW STUDY (01/06/2022 12:40 PM CDT) Component Value Ref Test Analysis Performed At [facility] Method Time Signature Case Report Bone Marrow Pathology Report ?Case: [id number] ? 01/07/2022 [facility] Authorizing Provider: ??Courtney Scott MD ?Collected: ? 01/06/2022 1240 ? 12:19 PM HOSPITA L Ordering Location: ? [facility] ? Received: ?01/06/2022 1257 ? CDT LABOR ATORY ? [place] [facility] [place] ? Pathologist: ? Cent[place], [place] ? Matthew, ? Specimens: ?? A) - Bone Koby ow, Right ? B) - Bone Marrow Aspirate (Heparinized), Right ? C) - Bone Marrow Core Biopsy, Right ? D) - Britt pheral Blood ? Final BONE MARROW AND PERIPHERAL BLOOD: 2021 [facility] Electronically Diagnosis History of plasma cell myelo ma (PCM)(WHO 2016), treated with revlimid (on hold since 10/20/2021), now showin:19 PM [facility] signed by 1. ??Residual plasma cell myeloma CDT LABORATORY Jacobo, ?a. ??Bone marrow involvement: ??30% [place] Castro, ?b. ??Bone marrow cellularity: ??40% MD on 01/07/2022 ?c. ??Peripheral blood: at 12:19 PM ?- No circulating plasma cells ?- Moderate macrocytic anemia 2. ??Adequate storage iron; adequate sideroblastic iron 3. ??Ancillary studies: ?a. ??Cytogenetics: ?- Not performed ?b. ??Molecular: ?- Not performed 4. See comment Comment The current marrow compares to the most recent marrow as follows: 01/07/2022 [facility] 12:19 PM [facility]OSPITAL BM date ? BM # ?BM Cellularity ??Monotypic PC % CDT LABORATORY 01/05/2022 ?? [id number] ? 40% ?30% 10/30/2020 ??B21-795 ?40% ?20% 01/10/2020 ?? B20-928 ?30-40% ? 50% 05/26/2017 ??B18-88 ? 40% ? 7-8% Clinical Ms. Ramos is a 71 01/07/2022 [facility] Information y.o. diagnosed 12:19 PM HOSPITAL with multiple CDT LABORATORY myeloma ([id number]). She was most recently treated with revlimid now on hold due to recent hospitalizations for ESRD, UTI and NSTEMI. Current SPEP/STEVE with 1.96 g/dL IgG kappa. A bone marrow evaluation of disease status is performed. PROCEDURE A right lateral bone marrow biopsy and unilateral aspiration procedure is performed at [facility] on 01/06/22. CARLOS MANUEL Tesfaye performed the procedure using an 8 gauge needle. The ordering physician is Dr. Scott. 01/07/2022 [facility] 12:19 PM [facility]ALTH The specimen is inked yellow. SSS 01/06/2022 CDT LABORATORY-[facility] CBC and HEMATOLOGY PARAMETERS 01/07/2022 [facility] Differential Tested at: ??[facility] 12:19 PM [facility]OSPITAL ? RESULTS ??EXPECTED VALUES C DT LABORATORY WBC: ? 6.1 ?4.5-71u2754/cumm ? RBC: ? 2.45 ? 4.00-5.20 mil/cumm ??DECREASED HGB: ? 8.5 ?12-16 gm/dl ? DECREASED HCT: ? 28.2 ? 33-51% ?DECREASED MCV: ? 115.0 ?80-100 fl ? MACROCYTIC MCH: ? 34.7 ? 26-34 pg ?ELEVATED MCHC: ?30.1 ? 32-36 gm/dl ? HYPOCHROMIC RDW: ? 19.0 ? 11.5-15.5% ?ELEVATED PLT: ? 169 ?140-433s5078/uL ? MPV: ? 10.4 ? 6.5-11 fl ? Retic: ?? 4.3 ?0.5-1.5% ?ELEVATED Differential ?Tested at: ??[facility] ?Absolute (%) ?Expected (%) ?(x10*9/L) ? (x10*9/L) Neutrophils: ?4.0 (65.6) ?1.7-7.0 (42-72%) ? Lymphocytes: ?1.2 (19.7) ?0.9-2.9 (20-44%) ?? Monocytes: ?0.5 (8.2) ?<0.9 (0-11%) ? Eosinophils: ?0.3 (4.9) ?<0.5 (0-2%) ? Basophils: ?0.1 (1.6) ?<0.3 (<3.0%) ? Imm Grans: ?0.0 (0) ?<0.3 (0-3%) ? (Metas, Myelos,Pros) Bone Marrow Blasts: ?0.0 ? 0.2-1.5% ?DECREASED 01/07/2022 [facility] Differential Neutrophils & precursors: ?? 52.6 ?58.0-65.0% ?DECREASED 12:19 PM HOSPITAL Eosinophils & precursors: ??2.2 ? 0.2-5.3% ? CDT LABORATORY Basophils & precursors: ?0.0 ? 0.0-1.0% ? Erythroid precursors: ?23.4 ?18.0-24.0% ? Lymphocytes: ? 10.0 ? 3.0-24 .0% ? Monocytes: ? 1.8 ? 0.7 -2.8% ? Plasma cells: ?10.0 ?0.1-1.5% ?ELEVATED M:E Ratio: ? 53 : 23 Microscopic SPECIMENS EXAMINED: 01/07/2022 [facility] Description Peripheral blood 12:19 PM HOSPITAL Aspirate direct and concentrate smears: Adequate CDT LABORATORY Particle crush smears Touch imprints Clot section Bone core trephine sample (decalcified): Adequate, 1.5 cm Bone core and clot section color: Yellow PERIPHERAL BLOOD: Review of the peripheral sme ar reveals moderate macrocytic anemia and rare nucleated red cells. No circulating plasma cells are identified. BONE MARROW ASPIRATE: Hematopoiesis: Maturing tril ineage hematopoiesis without overt features of dysplasia Lymphocytes: ?? Not increased Plasma cells: ??Increased mature and monomorphous forms BONE MARROW CORE AND CLOT SECTION: Hematopoiesis: Maturing tril ineage hematopoiesis with a decreased myeloid to erythroid ratio Lymphocytes: ?? Not increase d. A single focal lymphoid aggregate comprised of small lymphocytes is present in the clot section. Plasma cells: ??Increased, m ature and monomorphous forms occurring singly and in small and large clusters, comprising approximately 30% of marrow cellularity (best highlighted by CD138 immunostain, see below). IRON STUDIES: Storage iron, sideroblastic iron and ring sideroblasts evaluated; results included in diagnosis. Flow Cytometry Plasma Cell Monitoring panel: 01/07 [facility] Summary 12:19 PM HOSPITAL Interpretation: [place]-restricted monotypic plasma cell population detected. CDT LABORATORY Clinical indication for flow cytometry: To evaluate for light chain restriction and abnormal immunophenotype among plasma cells. Aberrant plasma cells (% of total nucleated cells): 4.84% Aberrant plasma cells (% of total plasma cells): 99% Polytypic/normal plasma cells (% of total nucleated cells): 0.07% Polytypic/normal plasma cells (% of total plasma cells): 1% Total aberrant plasma cell events: 06610 Total polytypic/normal plasma cell events: 358 Total plasma cell events (aberrant + poly): 04972 Total nucleated cell events: 148641 Summary of aberrant plasma cell phenotype Brightly positive markers: ??CD38/VS38(CYTO) Moderately positive markers: ??KAPPA(CYTO)/IRF4(N)/CD56 Dimly positive markers: ?? Trace positive markers: Negative markers: ??CD45/LAMBDA(CYTO)/CD19/CD20 The following monoclonal ant ibodies were used in this analysis: CD19, CD20, CD38, CD45, CD56, IRF4(n), [place] and Lambda cytoplasmic light chains, VS38(cyto). Quality Assessment Viability (7-AAD): 77% Limit of detection (LOD): 0.01% These results and cytograms have been verified by Dr. Ashwini aragon. This test was developed and its performance characteristics verified by [facility]. It has not been cleared or approved by the [place] Food and Drug Administration. This test is used for clinic al purposes and should not be regarded as investigational or for research. Immunostains may have been u sed on this case in conjunction with flow cytometry in order to address ambiguous or inconclusive findings and/or to provide prognostic information. In the event immunostains were performed, results of both modalities were coordinated with Javy&E findings during diagnostic evaluation. Analytic Flow Tech: Landy YoderJamalYasmeenedwigedorie, 01/07/2022 11:17 AM Verifying Flow Tech: Doriskristine Ramirez, 01/07/2022 11:34 AM Other Testing Immunostains are performed on the bone core biopsy. 01/07/2022 [facility] CD138 (plasma cell marker) (by manual morphometry): ap proximately 30% 12:19 PM HOSPITAL CDT LABORATORY Additional 01/07/2022 [facility] Information Interpreted at [facility] - [address] [place] [id number] 12:19 PM HOSPITAL CDT LABORATORY Specimen Anatomical Collection Method Collection Time Receive d Time (Source) Location / / Volume Laterality Bone Marrow BONE MARROW Non-Blood / 01/06/2022 12:40 01/06/2022 SPECIMEN / Unknown Unknown PM CDT 12:57 PM CDT Comment: This procedure was originally o rdered at [facility]. Bone marrow specimen Non-Blood / Unknown 01/06/2022 12 :40 PM 01/06/2022 5:00 PM (specimen) (Bone Marrow CDT CDT Aspirate (Heparinized)) Bone marrow specimen 01/06/2022 12:40 PM 01/06/2022 5:00 PM (specimen) (Bone Marrow CDT CDT Core Biopsy) Bone marrow specimen 01/06/2022 12:40 PM 01/06/2022 5:00 PM (specimen) (Peripheral CDT CDT Blood) Courtney Scott MD LABORATORY Performing Organization Address City/State/[facility] Code Phon e Number [facility] [place] [address] LABORATORY [id number] [place] [id number], LABORATORY-CENTRAL [address] LABORATORY BONE MARROW DIFFERENTIAL (01/06/2022 9:15 AM CDT) Specimen Anatomical Collection Method Collection Time Receive d Time (Source) Location / / Volume Laterality Bone Marrow BONE MARROW Non-Blood / 01/06/2022 9:15 AM SPECIMEN / Unknown Unknown CDT 12:57 PM CDT Courtney Scott MD LABORATORY Performing Organization Address City/[facility] Phon e Number [address] [address] LABORATORY-CENTRAL [address] LABORATORY COVID 19 (01/01/2022 2:09 PM CDT) [facility] Signature COVID 19 Negative Negative 01/02/2022 [facility] 2:24 PM CDT LABORATORY-[facility] Comment: All PCR tests are subject to fa lse negative result due to variability in viral load and collection technique. A n egative result does not rule out a SARS-CoV-2 infection. Clinical correlation required . Specimen Anatomical Location / Collection Method Collection Kosta e Received Time (Source) Laterality / Volume Other SPECIMEN FROM Non-Blood / 01/01/2022 2:09 01/02/2022 6:16 NASOPHARYNGEAL Unknown PM CDT AM CDT STRUCTURE / Unknown Narrative [facility] LABORATORY-CENTRAL LAB[facility]AT [place] - 01/02/2022 2:24 PM CDT This test has been authorized by FDA und er an Emergency Use Authorization (EUA). This test is only authorized for the duration of time the declaration that circumstances exist justifying the authorization of th e emergency use of in vitro diagnostic tests for detection of SARS-CoV-2 virus and/or diagnosis of COVID-19 infection under section 564(b)(1) of the Act, 21 U.S.C. 360bbb-3(b)(1), unless the authorization is terminated or revoked sooner. [facility] Performing Organization Address City/State/ZIP Code Phon e Number [facility] [address] [place] [address] LABORATORY-CENTRAL [address] LABORATORY from Last 3 Months Additional Health Concerns Infection Onset Date Last Indicated MRSAComment: Order contact precautions. 02/20/2020 07/07/2021 02/16/22, 10/21/21 Patient not eligible for removal due to di alysis. Nares surveillance cultures needed to cl ear patient if <12 months since positive culture. If >12 months since positive culture, precautions can be discontinued if patient has no MRSA risk factors. 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 groin wound 02/20/2020 abdominal wound 07/07/21 - nare exclusions for contact precaution dis continuation (if > 12 months since positive culture): resides in acute/diploma pharmacy technician care, receiving hemodialysis, has chronic open wounds/skin damage, has long-te rm percutaneous indwelling medical devic es Exclusions for nares collection (if <12 months since positive culture) include all of the previous exclusions plus patients on antibiotics 7 days prior to collection 07/12/2014 groin wound 02/20/2020 abdominal wound Insurance Payer Benefit Plan / Subscriber ID Effective Dates Phone Addre ss Type Group WC WORKERS WC WORKERS [id number]-Prese [phone] [address] [address] COMP COMP nt [address] [place] [address] MEDICARE PART MEDICARE PART [id number] 2013-Presen ATT N: CLAIMS B - HB USE B HB ONLY t [address] [place] [address] MEDICARE PART MEDICARE PART [id number] 2013-Presen AT [place]: CLAIMS A - HB USE A HB ONLY t [address] [place] [address] [employer] GOLD MR HUMANA CHOICE [id number] 2021-Presen [address] [address] [place] [address] Charlotte Ramos Personal/Family Self [address] [place] [address] Charlotte Ramos Workers Comp Self [address]Home) [address] [facility] [phone] [address] J[address] N (Work) [id number] Charlotte Ramos Personal/Family Self [address] [place] [address] Advance Directives Latest Code Status on File Code Status Date Activated Date Inactivated Comments Full Code 02/13/2022 11:14 PM 02/16/2022 7:45 PM Code Status Discussion: Reviewed Preferences Full Code 01/06/2022 11:36 AM 01/06/2022 4:28 PM Code Status Discussion: Unable to Assess Preferences, Provid er to review later Full Code 10/21/2021 8:22 PM 10/31/2021 11:36 AM Code Status Discussion: Reviewed Preferences Full Code 10/13/2021 11:54 AM 10/15/2021 9:42 PM Code Status Discussion: Reviewed Preferences Full Code 07/07/2021 1:49 AM 07/10/2021 7:46 PM Code Status Discussion: Reviewed Preferences Care Teams Deputy Building Guard Relationship Specialty Start Date End Date Kassie Villegas DO PCP - General Internal Medicine 06/26/21 [address] [place] [address] Courtney Scott MD Oncology Hematology and Oncology 01/01/20 [address] [place] [address] Yvrose Aparicio, [employer] Oncology Nurse Practitioner - Family 01/01/20 [address] [place] [address]
--- OUTSIDE RECORDS SUMMARY | 2022-04-02 21:36 | XMS_ITS | Encounter Summary ---
:1950 Author Organization [facility] Address [address] [place] [address] Care Team Providers Name Role Phone Unavailable Primary Care Provider Unavailable Encounter Details Date Type Department Care Team Description 01/19/2022 Orders Only [facility] Darrel Lepe MD [address] [place] [address] [place] [address] [phone] (Wo rk) Social History Tobacco Use Types Packs/Day Years Used Date Smoking Tobacco: Never Assessed Sex Assigned at Date Recorded Not on file documented as of this encounter Plan of Treatment Not on filedocumented as of this encounter Procedures Procedure Name Priority Date/Time Associated Comments Diagnosis HCT CALC HGBX3 (HC) Routine 03/30/2022 4:00 AM Re sults for this FOURDRINIER OPERATOR procedure are i n the results section. HEMOGLOBIN Routine 03/30/2022 4:00 AM Results f or this FOURDRINIER OPERATOR procedure are i n the results section. KT/V DAUGIRDAS (HC) Routine 03/23/2022 4:00 AM FOURDRINIER OPERATOR MONTHLY HD W/O CA/PH Routine 03/23/2022 4:00 AM R esults for this (HC) FOURDRINIER OPERATOR procedure are i n the results section. IRON PANEL (FE, Routine 03/23/2022 4:00 AM Result s for this TIBC, TSAT) FOURDRINIER OPERATOR procedure are i n the results section. HEPATITIS B SURFACE Routine 03/23/2022 4:00 AM Re sults for this ANTIGEN FOURDRINIER OPERATOR procedure are i n the results section. ALT Routine 03/23/2022 4:00 AM Results f or this FOURDRINIER OPERATOR procedure are i n the results section. PHOSPHATE ( Routine 03/23/2022 4:00 AM Results for this PHOSPHORUS) FOURDRINIER OPERATOR procedure are i n the results section. GLUCOSE, RANDOM Routine 03/23/2022 4:00 AM Result s for this FOURDRINIER OPERATOR procedure are i n the results section. FERRITIN Routine 03/23/2022 4:00 AM Results f or this FOURDRINIER OPERATOR procedure are i n the results section. CREATININE, SERUM Routine 03/23/2022 4:00 AM Resu lts for this FOURDRINIER OPERATOR procedure are i n the results section. HCT CALC HGBX3 (HC) Routine 03/16/2022 4:00 AM Re sults for this FOURDRINIER OPERATOR procedure are i n the results section. HEMOGLOBIN Routine 03/16/2022 4:00 AM Results f or this FOURDRINIER OPERATOR procedure are i n the results section. CARMEN/PHOS W/RATI (HC) Routine 03/09/2022 4:00 AM R esults for this FOURDRINIER OPERATOR procedure are i n the results section. KT/V DAUGIRDAS (HC) Routine 03/09/2022 4:00 AM Re sults for this FOURDRINIER OPERATOR procedure are i n the results section. HCT CALC HGBX3 (HC) Routine 03/09/2022 4:00 AM Re sults for this FOURDRINIER OPERATOR procedure are i n the results section. HEMOGLOBIN Routine 03/09/2022 4:00 AM Results f or this FOURDRINIER OPERATOR procedure are i n the results section. [...] procedure are i n the results section. documented in this encounter Results (ABNORMAL) Hemoglobin (03/30/2022 4:00 AM FOURDRINIER OPERATOR) P athologist Signature Hgb 8.6 (L) 12.0 - 16.0 APS DAVITA g/dL [facility] Specimen Anatomical Collection Method Collection Time Receive d Time (Source) Location / / Volume Laterality 03/30/2022 4:00 AM 2 7:51 FOURDRINIER OPERATOR PM FOURDRINIER OPERATOR Darrel Delgadillo MD LAB BLOOD ORDERABLES Performing Organization Address City/State/ZIP Code Phon e Number APS DAVITA [facility] (ABNORMAL) HCT CALC HGBX3 (03/30/2022 4:00 AM FOURDRINIER OPERATOR) Analysis Performed At Patho logist Time Signature Hemoglobin x 3 25.8 (L) 37.0 - APS DAVITA 47.0 % [facility] Comment: Reference Range is for adult patients. ? ?Refer to pediatric reference ranges in the Lab Reference Manual for age-specifi c reference ranges. Specimen Anatomical Collection Method Collection Time Receive d Time (Source) Location / / Volume Laterality 03/30/2022 4:00 AM 2 7:51 FOURDRINIER OPERATOR PM FOURDRINIER OPERATOR Darrel Delgadillo MD LAB [id number] NSOLICITED RESULTS Performing Organization Address City/[facility]/ZIP Code Phon e Number APS DAVITA [facility] Hepatitis B Surface Antigen (03/23/2022 4:00 AM FOURDRINIER OPERATOR) P athologist Signature Hep B Surface NEG -NEG APS DAVITA Antigen [facility] Comment: This test utilizes Biotin (Vitamin B7) a s one of it's reagents. Testing may be interfered with in patients consuming Bi otin supplements. Please factor this when reviewing results. Specimen Anatomical Collection Method Collection Time Receive d Time (Source) Location / / Volume Laterality 03/23/2022 4:00 AM 2 FOURDRINIER OPERATOR 11:28 AM FOURDRINIER OPERATOR Darrel Delgadillo MD LAB BLOOD ORDERABLES Performing Organization Address City/[facility]/ZIP Code Phon e Number APS DAVITA [facility] (ABNORMAL) Ferritin (03/23/2022 4:00 AM FOURDRINIER OPERATOR) athologist Signature Ferritin 931 (H) 10 - 291 APS DAVITA ng/mL [facility] Specimen Anatomical Collection Method Collection Time Receive d Time (Source) Location / / Volume Laterality 03/23/2022 4:00 AM 2 FOURDRINIER OPERATOR 11:28 AM FOURDRINIER OPERATOR Darrel Delgadillo MD LAB BLOOD ORDERABLES Performing Organization Address City/[facility]/ZIP Code Phon e Number APS DAVITA [facility] ALT (03/23/2022 4:00 AM FOURDRINIER OPERATOR) athologist Signature ALT (SGPT) 12 10 - 49 U/L APS DAVITA [facility] Specimen Anatomical Collection Method Collection Time Receive d Time (Source) Location / / Volume Laterality 03/23/2022 4:00 AM 2 FOURDRINIER OPERATOR 11:28 AM FOURDRINIER OPERATOR Darrel Delgadillo MD LAB BLOOD ORDERABLES Performing Organization Address City/[facility]/ZIP Code Phon e Number APS DAVITA [facility] (ABNORMAL) Phosphorus (03/23/2022 4:00 AM FOURDRINIER OPERATOR) athologist Signature Phosphorus, 7.4 (H) 2.4 - 5.1 APS DAVITA Serum mg/dL [facility] Specimen Anatomical Collection Method Collection Time Receive d Time (Source) Location / / Volume Laterality 03/23/2022 4:00 AM 2 FOURDRINIER OPERATOR 11:28 AM FOURDRINIER OPERATOR Darrel Delgadillo MD LAB BLOOD ORDERABLES Performing Organization Address City/State/ZIP Code Phon e Number APS DAVITA [facility] (ABNORMAL) Glucose, random (03/23/2022 4:00 AM FOURDRINIER OPERATOR) P athologist Signature Glucose 216 (H) 70 - 99 APS DAVITA mg/dL [facility] Specimen Anatomical Collection Method Collection Time Receive d Time (Source) Location / / Volume Laterality 03/23/2022 4:00 AM 2 FOURDRINIER OPERATOR 11:28 AM FOURDRINIER OPERATOR Darrel Delgadillo MD LAB BLOOD ORDERABLES Performing Organization Address City/State/ZIP Code Phon e Number APS DAVITA [facility] (ABNORMAL) Creatinine, serum (03/23/2022 4:00 AM FOURDRINIER OPERATOR) P athologist Signature Creatinine 6.08 (H) 0.50 - 1.10 APS DAVITA mg/dL [facility] Specimen Anatomical Collection Method Collection Time Receive d Time (Source) Location / / Volume Laterality 03/23/2022 4:00 AM 2 FOURDRINIER OPERATOR 11:28 AM FOURDRINIER OPERATOR Darrel Delgadillo MD LAB BLOOD ORDERABLES Performing Organization Address City/State/ZIP Code Phon e Number APS DAVITA [facility] KT/V DAUGIRDAS (03/23/2022 4:00 AM FOURDRINIER OPERATOR) Specimen Anatomical Collection Method Collection Time Receive d Time (Source) Location / / Volume Laterality 03/23/2022 4:00 AM 2 FOURDRINIER OPERATOR 11:28 AM FOURDRINIER OPERATOR Darrel Delgadillo MD LAB [id number] NSOLICITED RESULTS Performing Organization Address City/State/ZIP Code Phon e Number APS DAVITA [facility] (ABNORMAL) Iron Panel (Fe, TIBC, TSAT) (03/23/2022 4:00 AM FOURDRINIER OPERATOR) P athologist Signature Iron 80 50 - 170 APS DAVITA ug/dL [facility] TIBC 215 (L) 250 - 425 APS DAVITA ug/dL [facility] UIBC 135 80 - 375 APS DAVITA ug/dL [facility] Iron Saturation 37 16 - 46 % APS DAVITA (TSat) [facility] Specimen Anatomical Collection Method Collection Time Receive d Time (Source) Location / / Volume Laterality 03/23/2022 4:00 AM 2 FOURDRINIER OPERATOR 11:28 AM FOURDRINIER OPERATOR Darrel Delgadillo MD LAB BLOOD ORDERABLES Performing Organization Address City/State/ZIP Code Phon e Number APS DAVITA [facility] (ABNORMAL) MONTHLY HD W/O CA/PH (03/23/2022 4:00 AM FOURDRINIER OPERATOR) [facility] gist Method Time Signature Potassium 4.8 3.5 [...] / Volume Laterality 03/23/2022 4:00 AM 2 FOURDRINIER OPERATOR 11:28 AM FOURDRINIER OPERATOR Darrel Delgadillo MD LAB [id number] NSOLICITED RESULTS Performing Organization Address City/State/ZIP Code Phon e Number APS DAVITA [facility] (ABNORMAL) Hemoglobin (03/16/2022 4:00 AM FOURDRINIER OPERATOR) P athologist Signature Hgb 8.2 (L) 12.0 - 16.0 APS DAVITA g/dL [facility] Specimen Anatomical Collection Method Collection Time Receive d Time (Source) Location / / Volume Laterality 03/16/2022 4:00 AM 2 7:33 FOURDRINIER OPERATOR PM FOURDRINIER OPERATOR Darrel Delgadillo MD LAB BLOOD ORDERABLES Performing Organization Address City/State/ZIP Code Phon e Number APS DAVITA [facility] (ABNORMAL) HCT CALC HGBX3 (03/16/2022 4:00 AM FOURDRINIER OPERATOR) Analysis Performed At [facility] Time Signature Hemoglobin x 3 24.6 (L) 37.0 - APS DAVITA 47.0 % [facility] Comment: Reference Range is for adult patients. ? ?Refer to pediatric reference ranges in the Lab Reference Manual for age-specifi c reference ranges. Specimen Anatomical Collection Method Collection Time Receive d Time (Source) Location / / Volume Laterality 03/16/2022 4:00 AM 2 7:33 FOURDRINIER OPERATOR PM FOURDRINIER OPERATOR Darrel Delgadillo MD LAB [id number] NSOLICITED RESULTS Performing Organization Address City/State/ZIP Code Phon e Number APS DAVITA [facility] (ABNORMAL) Hemoglobin (03/09/2022 4:00 AM FOURDRINIER OPERATOR) athologist Signature Hgb 6.7 (L) 12.0 - 16.0 APS DAVITA g/dL [facility] Specimen Anatomical Collection Method Collection Time Receive d Time (Source) Location / / Volume Laterality 03/09/2022 4:00 AM 2 FOURDRINIER OPERATOR 10:45 AM FOURDRINIER OPERATOR Darrel Delgadillo MD LAB BLOOD ORDERABLES Performing Organization Address City/State/ZIP Code Phon e Number APS DAVITA [facility] (ABNORMAL) HCT CALC HGBX3 (03/09/2022 4:00 AM FOURDRINIER OPERATOR) Analysis Performed At [facility] Signature Hemoglobin x 3 20.1 (L) 37.0 - APS DAVITA 47.0 % [facility] Comment: Reference Range is for adult patients. ? ?Refer to pediatric reference ranges in the Lab Reference Manual for age-specifi c reference ranges. Specimen Anatomical Collection Method Collection Time Receive d Time (Source) Location / / Volume Laterality 03/09/2022 4:00 AM 2 FOURDRINIER OPERATOR 10:45 AM FOURDRINIER OPERATOR Darrel Delgadillo MD LAB [id number] NSOLICITED RESULTS Performing Organization Address City/State/ZIP Code Phon e Number APS DAVITA [facility] (ABNORMAL) KT/V DAUGIRDAS (03/09/2022 4:00 AM FOURDRINIER OPERATOR) athologist Signature BUN 51 (H) 9 - 23 APS DAVITA mg/dL [facility] BUN Post 16 9 - 23 APS DAVITA Dialysis mg/dL [facility] URR% 69 65 - 100 % APS DAVITA [facility] Specimen Anatomical Collection Method Collection Time Receive d Time (Source) Location / / Volume Laterality 03/09/2022 4:00 AM 2 FOURDRINIER OPERATOR 10:45 AM FOURDRINIER OPERATOR Darrel Delgadillo MD LAB [id number] NSOLICITED RESULTS Performing Organization Address City/State/ZIP Code Phon e Number APS DAVITA [facility] (ABNORMAL) CARMEN/PHOS W/RATI (03/09/2022 4:00 AM FOURDRINIER OPERATOR) P athologist Signature Calcium 8.2 (L) 8.7 - [...] / Volume Laterality 03/09/2022 4:00 AM 2 FOURDRINIER OPERATOR 10:45 AM FOURDRINIER OPERATOR Darrel Delgadillo MD LAB [id number] NSOLICITED RESULTS Performing Organization Address City/State/ZIP Code Phon e Number APS DAVITA [facility] (ABNORMAL) Hemoglobin (03/04/2022 4:00 AM CDT) P athologist Signature Hgb 7.4 (L) 12.0 - 16.0 APS DAVITA g/dL [facility] Specimen Anatomical Collection Method Collection Time Receive d Time (Source) Location / / Volume Laterality 03/04/2022 4:00 AM 2 9:13 CDT AM CDT Darrel Delgadillo MD LAB BLOOD ORDERABLES Performing Organization Address City/State/ZIP Code Phon e Number APS DAVITA [facility] (ABNORMAL) HCT CALC HGBX3 (03/04/2022 4:00 AM CDT) Analysis Performed At Patho logist Time Signature Hemoglobin x 3 22.2 (L) 37.0 - APS DAVITA 47.0 % [facility] Comment: Reference Range is for adult patients. ? ?Refer to pediatric reference ranges in the Lab Reference Manual for age-specifi c reference ranges. Specimen Anatomical Collection Method Collection Time Receive d Time (Source) Location / / Volume Laterality 03/04/2022 4:00 AM 2 9:13 CDT AM CDT Darrel Delgadillo MD LAB [id number] NSOLICITED RESULTS Performing Organization Address City/[facility]/ZIP Code Phon e Number APS DAVITA [facility] Hepatitis B Surface Antibody (03/02/2022 4:00 AM CDT) P athologist Signature Hepatitis B 7 0 - 9 APS DAVITA Surface Ab mIU/mL [facility] Comment: Results >= 10 mIU/ml are consis tent with Immunity to Hepatitis B Specimen Anatomical Collection Method Collection Time Receive d Time (Source) Location / / Volume Laterality 03/02/2022 4:00 AM 2 CDT 10:49 AM CDT Darrel Delgadillo MD LAB BLOOD ORDERABLES Performing Organization Address [facility] Code Phon e Number APS DAVITA [facility] Hemoglobin (03/02/2022 4:00 AM CDT) athologist Signature Hgb TNP g/dL APS DAVITA [facility] Comment: Recollect - Labeling Error Specimen Anatomical Collection Method Collection Time Receive d Time (Source) Location / / Volume Laterality 03/02/2022 4:00 AM 2 CDT 10:49 AM CDT Darrel Delgadillo MD LAB BLOOD ORDERABLES Performing Organization Address City/[facility]/ZIP Code Phon e Number APS DAVITA [facility] (ABNORMAL) Hemoglobin (02/23/2022 4:00 AM CDT) P athologist Signature Hgb 7.7 (L) 12.0 - 16.0 APS DAVITA g/dL [facility] Specimen Anatomical Collection Method Collection Time Receive d Time (Source) Location / / Volume Laterality 02/23/2022 4:00 AM 2 9:48 CDT AM CDT Darrel Delgadillo MD LAB BLOOD ORDERABLES Performing Organization Address City/State/ZIP Code Phon e Number APS DAVITA [facility] (ABNORMAL) HCT CALC HGBX3 (02/23/2022 4:00 AM CDT) Analysis Performed At Patho logist Time Signature Hemoglobin x 3 23.1 (L) 37.0 - APS DAVITA 47.0 % [facility] Comment: Reference Range is for adult patients. ? ?Refer to pediatric reference ranges in the Lab Reference Manual for age-specifi c reference ranges. Specimen Anatomical Collection Method Collection Time Receive d Time (Source) Location / / Volume Laterality 02/23/2022 4:00 AM 2 9:48 CDT AM CDT Darrel Delgadillo MD LAB [id number] NSOLICITED RESULTS Performing Organization Address City/State/ZIP Code Phon e Number APS DAVITA [facility] Hepatitis B Surface Antigen (02/18/2022 4:00 AM CDT) athologist Signature Hep B Surface NEG -NEG [...] MD LAB BLOOD ORDERABLES Performing Organization Address City/[facility]/ZIP Code Phon e Number APS DAVITA [facility] (ABNORMAL) Ferritin (02/18/2022 4:00 AM CDT) athologist Signature Ferritin 1,423 (H) 10 - 291 APS DAVITA ng/mL [facility] Specimen Anatomical Collection Method Collection Time Receive d Time (Source) Location / / Volume Laterality 02/18/2022 4:00 AM 2 7:47 CDT AM CDT Darrel Delgadillo MD LAB BLOOD ORDERABLES Performing Organization Address City/[facility]/ZIP Code Phon e Number APS DAVITA [facility] (ABNORMAL) Hemoglobin A1c (02/18/2022 4:00 AM CDT) P athologist Signature Hemoglobin A1C 8.1 (H) 0.0 - 5.6 APS DAVITA %A1c [facility] Specimen Anatomical Collection Method Collection Time Receive d Time (Source) Location / / Volume Laterality 02/18/2022 4:00 AM 7:47 CDT AM CDT Darrel Delgadillo MD LAB BLOOD ORDERABLES Performing Organization Address City/[facility]/ZIP Code Phon e Number APS DAVITA [facility] ALT (02/18/2022 4:00 AM CDT) P athologist Signature ALT (SGPT) 17 10 - 49 U/L APS DAVITA [facility] Specimen Anatomical Collection Method Collection Time Receive d Time (Source) Location / / Volume Laterality 02/18/2022 4:00 AM 7:47 CDT AM CDT Darrel Delgadillo MD LAB BLOOD ORDERABLES Performing Organization Address [facility]/ZIP Code Phon e Number APS DAVITA [facility] (ABNORMAL) Glucose, random (02/18/2022 4:00 AM CDT) P athologist Signature Glucose 155 (H) 70 - 99 APS DAVITA mg/dL [facility] Specimen Anatomical Collection Method Collection Time Receive d Time (Source) Location / / Volume Laterality 02/18/2022 4:00 AM 7:47 CDT AM CDT Darrel Delgadillo MD LAB BLOOD ORDERABLES Performing Organization Address [facility]/ZIP Code Phon e Number APS DAVITA [facility] (ABNORMAL) Creatinine, serum (02/18/2022 4:00 AM CDT) P athologist Signature Creatinine 9.67 (H) 0.50 - 1.10 APS DAVITA mg/dL [facility] Specimen Anatomical Collection Method Collection Time Receive d Time (Source) Location / / Volume Laterality 02/18/2022 4:00 AM 7:47 CDT AM CDT Darrel Delgadillo MD LAB BLOOD ORDERABLES Performing Organization Address City/[facility]/ZIP Code Phon e Number APS DAVITA [facility] HCV PANEL NONPROTOCL (02/18/2022 4:00 AM CDT) P athologist Signature Hepatitis C 0.11 0.00 - [...] / / Volume Laterality 02/18/2022 4:00 AM 7:47 CDT AM CDT Darrel Delgadillo MD LAB [id number] NSOLICITED RESULTS Performing Organization Address City/State/ZIP Code Phon e Number APS DAVITA [facility] (ABNORMAL) Iron Panel (Fe, TIBC, TSAT) (02/18/2022 4:00 AM CDT) P athologist Signature Iron 80 50 - 170 APS DAVITA ug/dL [facility] TIBC 181 (L) 250 - 425 APS DAVITA ug/dL [facility] UIBC 101 80 - 375 APS DAVITA ug/dL [facility] Iron Saturation 44 16 - 46 % APS DAVITA (TSat) [facility] Specimen Anatomical Collection Method Collection Time Receive d Time (Source) Location / / Volume Laterality 02/18/2022 4:00 AM 7:47 CDT AM CDT Darrel Delgadillo MD LAB BLOOD ORDERABLES Performing Organization Address City/State/ZIP Code Phon e Number APS DAVITA [facility] (ABNORMAL) MONTHLY HD W/O CA/PH (02/18/2022 4:00 AM CDT) Patholo gist Method Time Signature Potassium 4.7 3.5 - 5.5 APS DAVITA mEq/L [facility] Chloride 101 99 - 109 APS DAVITA mEq/L [facility] Bicarbonate 15 (L) 20 - 31 APS DAVITA (CO2) mEq/L [facility] Protein, Total 7.0 5.7 - 8.2 APS DAVITA g/dL [facility] Albumin 3.5 3.4 - 4.8 APS DAVITA g/dL [facility] AST (SGOT) 14 0 - 33 APS DAVITA U/L [facility] LDH 127 120 - 246 APS DAVITA U/L [facility] Alkaline 86 46 - 116 APS DAVITA Phosphatase U/L [facility] WBC 5.8 4.5 - APS DAVITA 11.0 x [facility] 10'3 cells/uL RBC 2.25 (L) 4.20 - APS DAVITA 5.40 x [facility] 10'6 cells/uL Hgb 7.6 (L) 12.0 - APS DAVITA 16.0 g/dL [facility] Hematocrit 25.2 (L) 37.0 - APS DAVITA 47.0 % [facility] MCV 112.4 (H) 80.0 - APS DAVITA 100.0 fL [facility] Comment: NOTE: MCV may be falsely elevat ed in aged samples (approximately 72 hours). MCH 34.0 (H) 27.0 - 31.0 pg APS DAVITA [facility] N MCHC 30.2 (L) 32.0 - 36.0 g/dL APS DAVITA [place] MMN RDW 17.1 (H) 11.0 - 15.0 % APS DAVITA [facility] Platelets 145 (L) 150 - 400 x 10'3 cells/uL APS DAVITA [facility] Neutrophils % Auto 64.8 % APS DAVITA [facility] Lymphocytes Manual 25.5 % APS DAVITA [facility] Monocytes Manual 5.8 % APS DAVITA [place] MMN Eosinophil % 3.4 % APS DAVITA [facility] Basophils Relative 0.5 % APS DAVITA [facility] Neutrophils Absolute 3,726.00 2,000 - 8,800 Cell/uL APS DAVITA [facility] Lymphocytes Absolute 1,466.25 1,100 - 4,800 Cell/uL APS DAVITA [facility] Monocytes Absolute 333.50 0 - 1,100 Cell/uL APS DAVITA [facility] Eosinophils Absolute 195.50 0 - 700 Cell/uL APS DAVITA [facility] Basophils Absolute 28.75 0 - 400 Cell/uL APS D AVITA [facility] Comment: NOTE:Diff percentage results will contin ue to be reported but without reference ranges per CAP guidelines and will not b e flagged as normal or abnormal. Absolute concentrations of circulating W BC are the preferable method of reporting and will continue to be evalua deidre against established reference ranges. Globulin 3.5 0.9 - 5 g/dL APS DAVITA [facility] A/G Ratio 1.0 1 - 2.5 Calc APS DAVITA [facility] Hemoglobin x 3 22.8 (L) 37.0 - 47.0 % APS DAVITA [facility] Comment: Reference Range is for adult patients. ? ?Refer to pediatric reference ranges in the Lab Reference Manual for age-specifi c reference ranges. Specimen Anatomical Collection Method Collection Time Receive d Time (Source) Location / / Volume Laterality 02/18/2022 4:00 AM 2 7:47 CDT AM CDT Darrel Delgadillo MD LAB [id number] NSOLICITED RESULTS Performing Organization Address City/[facility] Code Phon e Number APS DAVITA [facility] (ABNORMAL) Hemoglobin (02/09/2022 4:00 AM CDT) P athologist Signature Hgb 8.8 (L) 12.0 - 16.0 APS DAVITA g/dL [facility] Specimen Anatomical Collection Method Collection Time Receive d Time (Source) Location / / Volume Laterality 02/09/2022 4:00 AM 2 CDT 12:17 PM CDT Darrel Delgadillo MD LAB BLOOD ORDERABLES Performing Organization Address City/[facility] Phon e Number SUZANNE WYATT [facility] (ABNORMAL) HCT CALC HGBX3 (02/09/2022 4:00 AM CDT) Analysis Performed At Patho logist Time Signature Hemoglobin x 3 26.4 (L) 37.0 - APS DAVITA 47.0 % [facility] Comment: Reference Range is for adult patients. ? ?Refer to pediatric reference ranges in the Lab Reference Manual for age-specifi c reference ranges. Specimen Anatomical Collection Method Collection Time Receive d Time (Source) Location / / Volume Laterality 02/09/2022 4:00 AM 2 CDT 12:17 PM CDT Darrel Delgadillo MD LAB [id number] NSOLICITED RESULTS Performing Organization Address City/[facility] Phon e Number APS DAVITA [facility] (ABNORMAL) [...] MD LAB BLOOD ORDERABLES Performing Organization Address City/[facility]/ZIP Code Phon e Number APS DAVITA [facility] (ABNORMAL) Hemoglobin (02/02/2022 4:00 AM CDT) P athologist Signature Hgb 8.8 (L) 12.0 - 16.0 APS DAVITA g/dL [facility] Specimen Anatomical Collection Method Collection Time Receive d Time (Source) Location / / Volume Laterality 02/02/2022 4:00 AM 2 CDT 12:39 PM CDT Darrel Delgadillo MD LAB BLOOD ORDERABLES Performing Organization Address City/[facility]/ZIP Code Phon e Number APS DAVITA [facility] (ABNORMAL) HCT CALC HGBX3 (02/02/2022 4:00 AM CDT) Analysis Performed At Patho logist Time Signature Hemoglobin x 3 26.4 (L) 37.0 - APS DAVITA 47.0 % [facility] Comment: Reference Range is for adult patients. ? ?Refer to pediatric reference ranges in the Lab Reference Manual for age-specifi c reference ranges. Specimen Anatomical Collection Method Collection Time Receive d Time (Source) Location / / Volume Laterality 02/02/2022 4:00 AM 2 CDT 12:39 PM CDT Authorizing Provider Result Nena Delgadillo MD LAB [id number] NSOLICITED RESULTS Performing Organization Address City/State/ZIP Code Phon e Number APS DAVITA [facility] (ABNORMAL) KT/V DAUGIRDAS (02/02/2022 4:00 AM CDT) P athologist Signature BUN 40 (H) 9 - 23 APS DAVITA mg/dL [facility] BUN Post 10 9 - 23 APS DAVITA Dialysis mg/dL [facility] URR% 75 65 - 100 % APS DAVITA [facility] Specimen Anatomical Collection Method Collection Time Receive d Time (Source) Location / / Volume Laterality 02/02/2022 4:00 AM 2 CDT 12:39 PM CDT Darrel Delgadillo MD LAB [id number] NSOLICITED RESULTS Performing Organization Address City/State/ZIP Code Phon e Number APS DAVITA [facility] (ABNORMAL) CARMEN/PHOS W/RATI (02/02/2022 4:00 AM CDT) P athologist Signature Calcium 8.8 8.7 - 10.4 APS DAVITA mg/dL [facility] Phosphorus, 5.5 (H) 2.4 - 5.1 APS DAVITA Serum mg/dL [facility] CA/PHOS 48.4 21 - 53 APS DAVITA PRODUCT Calc [facility] Corrected 8.9 8.7 - 10.4 APS DAVITA Calcium mg/dL [facility] CA*PO4 CORRCTD 49.0 21 - 53 APS DAVITA Calc [facility] Specimen Anatomical Collection Method Collection Time Receive d Time (Source) Location / / Volume Laterality 02/02/2022 4:00 AM 2 CDT 12:39 PM CDT Darrel Delgadillo MD LAB [id number] NSOLICITED RESULTS Performing Organization Address [facility] [facility]/ZIP Code Phon e Number APS DAVITA [facility] (ABNORMAL) Hemoglobin (01/26/2022 4:00 AM CDT) P athologist Signature Hgb 9.2 (L) 12.0 - 16.0 APS DAVITA g/dL [facility] Specimen Anatomical Collection Method Collection Time Receive d Time (Source) Location / / Volume Laterality 01/26/2022 4:00 AM 2 CDT 11:11 AM CDT Darrel Delgadillo MD LAB BLOOD ORDERABLES Performing Organization Address City/State/ZIP Code Phon e Number APS DAVITA [facility] (ABNORMAL) HCT CALC HGBX3 (01/26/2022 4:00 AM CDT) Analysis Performed At Patho logist Time Signature Hemoglobin x 3 27.6 (L) 37.0 - APS DAVITA 47.0 % [facility] Comment: Reference Range is for adult patients. ? ?Refer to pediatric reference ranges in the Lab Reference Manual for age-specifi c reference ranges. Specimen Anatomical Collection Method Collection Time Receive d Time (Source) Location / / Volume Laterality 01/26/2022 4:00 AM 2 CDT 11:11 AM CDT Darrel Delgadillo MD LAB [id number] NSOLICITED RESULTS Performing Organization Address City/[facility]/ZIP Code Phon e Number APS DAVITA [facility] Hepatitis B Surface Antigen (01/19/2022 4:00 AM CDT) P athologist Signature Hep B Surface NEG -NEG APS DAVITA Antigen [facility] Comment: This test utilizes Biotin (Vitamin B7) a s one of it's reagents. Testing may be interfered with in patients consuming Bi otin supplements. Please factor this when reviewing results. Specimen Anatomical Collection Method Collection Time Receive d Time (Source) Location / / Volume Laterality 01/19/2022 4:00 AM 2 8:27 CDT AM CDT Darrel Delgadillo MD LAB BLOOD ORDERABLES Performing Organization Address City/[facility]/ZIP Code Phon e Number APS DAVITA [facility] (ABNORMAL) Ferritin (01/19/2022 4:00 AM CDT) athologist Signature Ferritin 1,288 (H) 10 - 291 APS DAVITA ng/mL [facility] Specimen Anatomical Collection Method Collection Time Receive d Time (Source) Location / / Volume Laterality 01/19/2022 4:00 AM 2 8:27 CDT AM CDT Darrel Delgadillo MD LAB BLOOD ORDERABLES Performing Organization Address City/[facility]/ZIP Code Phon e Number APS DAVITA [facility] ALT (01/19/2022 4:00 AM CDT) P athologist Signature ALT (SGPT) 19 10 - 49 U/L APS DAVITA [facility] Specimen Anatomical Collection Method Collection Time Receive d Time (Source) Location / / Volume Laterality 01/19/2022 4:00 AM 2 8:27 CDT AM CDT Darrel Delgadillo MD LAB BLOOD ORDERABLES Performing Organization Address City/[facility]/ZIP Code Phon e Number APS DAVITA [facility] (ABNORMAL) Glucose, random (01/19/2022 4:00 AM CDT) P athologist Signature Glucose 242 (H) 70 - 99 APS DAVITA mg/dL [facility] Specimen Anatomical Collection Method Collection Time Receive d Time (Source) Location / / Volume Laterality 01/19/2022 4:00 AM 2 8:27 CDT AM CDT Darrel Delgadillo MD LAB BLOOD ORDERABLES Performing Organization Address City/[facility]/ZIP Code Phon e Number APS DAVITA [facility] (ABNORMAL) Creatinine, serum (01/19/2022 4:00 AM CDT) athologist Signature Creatinine 5.58 (H) 0.50 - 1.10 APS DAVITA mg/dL [facility] Specimen Anatomical Collection Method Collection Time Receive d Time (Source) Location / / Volume Laterality 01/19/2022 4:00 AM 2 8:27 CDT AM CDT Darrel Delgadillo MD LAB BLOOD ORDERABLES Performing Organization Address City/[facility]/ZIP Code Phon e Number APS DAVITA [facility] (ABNORMAL) Iron Panel (Fe, TIBC, TSAT) (01/19/2022 4:00 AM CDT) athologist Signature Iron 74 50 - 170 APS DAVITA ug/dL [facility] TIBC 219 (L) 250 - 425 APS DAVITA ug/dL [facility] UIBC 145 80 - 375 APS DAVITA ug/dL [facility] Iron Saturation 34 16 - 46 % APS DAVITA (TSat) [facility] Specimen Anatomical Collection Method Collection Time Receive d Time (Source) Location / / Volume Laterality 01/19/2022 4:00 AM 2 8:27 CDT AM CDT Darrel Delgadillo MD LAB BLOOD ORDERABLES Performing Organization Address City/[facility]/ZIP Code Phon e Number APS DAVITA [facility] (ABNORMAL) MONTHLY HD W/O CA/PH (01/19/2022 4:00 AM CDT) [facility] gist Method Time Signature Potassium 4.5 3.5 - 5.5 APS DAVITA mEq/L [facility] Chloride 102 99 - 109 APS DAVITA mEq/L [facility] Bicarbonate 19 (L) 20 - 31 APS DAVITA (CO2) mEq/L [facility] Protein, Total 7.8 5.7 - 8.2 APS DAVITA g/dL [facility] Albumin 3.9 3.4 - 4.8 APS DAVITA g/dL [facility] AST (SGOT) 17 0 - 33 APS DAVITA U/L [facility] LDH 177 120 - 246 APS DAVITA U/L [facility] Alkaline 139 (H) 46 - 116 APS DAVITA Phosphatase U/L [facility] WBC 10.8 4.5 - APS DAVITA 11.0 x [facility] 10'3 cells/uL RBC 2.59 (L) 4.20 - APS DAVITA 5.40 x [facility] 10'6 cells/uL Hgb 9.3 (L) 12.0 - APS DAVITA 16.0 g/dL [facility] Hematocrit 30.0 (L) 37.0 - APS DAVITA 47.0 % [facility] MCV 116.0 (H) 80.0 - APS DAVITA 100.0 fL [facility] Comment: NOTE: MCV may be falsely elevat ed in aged samples (approximately 72 hours). MCH 36.1 (H) 27.0 - 31.0 pg APS DAVITA [facility] N MCHC 31.1 (L) 32.0 - 36.0 g/dL APS DAVITA [place] MMN RDW 18.8 (H) 11.0 - 15.0 % APS DAVITA [facility] Platelets 191 150 - 400 x 10'3 cells/uL APS DAVITA [facility] Neutrophils % Auto 64.0 % APS DAVITA [facility] Lymphocytes Manual 27.1 % APS DAVITA [facility] Monocytes Manual 5.1 % APS DAVITA [place] MMN Eosinophil % 3.2 % APS DAVITA [facility] Basophils Relative 0.6 % APS DAVITA [facility] Neutrophils Absolute 6,937.60 2,000 - 8,800 Cell/uL APS DAVITA [facility] Lymphocytes Absolute 2,937.64 1,100 - 4,800 Cell/uL APS DAVITA [facility] Monocytes Absolute 552.84 0 - 1,100 Cell/uL APS DAVITA [facility] Eosinophils Absolute 346.88 0 - 700 Cell/uL APS DAVITA [facility] Basophils Absolute 65.04 0 - 400 Cell/uL APS D AVITA [facility] Comment: NOTE:Diff percentage results will contin ue to be reported but without reference ranges per CAP guidelines and will not b e flagged as normal or abnormal. Absolute concentrations of circulating W BC are the preferable method of reporting and will continue to be evalua deidre against established reference ranges. Globulin 3.9 0.9 - 5 g/dL APS DAVITA [facility] A/G Ratio 1.0 1 - 2.5 Calc APS DAVITA [facility] Hemoglobin x 3 27.9 (L) 37.0 - 47.0 % APS DAVITA [facility] Comment: Reference Range is for adult patients. ? ?Refer to pediatric reference ranges in the Lab Reference Manual for age-specifi c reference ranges. Specimen Anatomical Collection Method Collection Time Receive d Time (Source) Location / / Volume Laterality 01/19/2022 4:00 AM 8:27 CDT AM CDT Darrel Delgadillo MD LAB [id number] NSOLICITED RESULTS Performing Organization Address City/State/ZIP Code Phon e Number APS DAVITA [facility] documented in this encounter Visit Diagnoses Not on filedocumented in this encounter
--- OUTSIDE RECORDS SUMMARY | 2022-04-02 21:36 | XMS_ITS | Encounter Summary ---
:1950 Author Organization [facility] Address [address] [place] [address] Care Team Providers Name Role Phone Unavailable Primary Care Provider Unavailable Encounter Details Date Type Department Care Team Description 03/09/2022 Treatment [facility] Darrel Lepe MD [address] [place] [address] [place], [place] [address] [place], [place] [phone] (Wo rk) Social History Tobacco Use Types Packs/Day Years Used Date Smoking Tobacco: Never Assessed Sex Assigned at Date Recorded Not on file documented as of this encounter Miscellaneous Notes Dialysis Note - Darrel Delgadillo MD - 03/09/2022 8:29 AM CST Date: Mar 09, 2022 Patient Name: Charlotte Ramos : 1950 Chart #: [id number] Sex: F This patient was personally seen for a complete visit as part of routine monthly dialysis care. A review of the dialysis treatment, blood pressure, estimated dry weight and recent lab values was made. These were discussed with the patient and staff as necessary. INTERNAL AFFAIRS COMMANDER: Darrel Delgadillo MD LOCATION: [facility] [phone] SCHEDULE: M-W-F 2nd Shift EDW: kg. DIALYZER: HD DURATION: NEEDLE SIZE: ANTICOAG: BATH: QB: ml/min QD: ml/min Subjective 03/24: Doing better w/ rx; venkatesh w/ rx time lowered to 3 hr. Hgb 6.4 and fatigued. We have arranged for transfusion after rx today. Access working well. 02/21: Doing better since hospitalization 1 or so weeks ago at [facility] w/ diverticulitis. Completed course of abx. Tolerating hd [...] since she had cor stents placed at [facility]. Hosp 10/21/21-11/01/2021.Coronary angiogram on 10/29/21 which showed [...] - 0 Goal sp kt/v >/= 1.2 03/24: Nov values pending. Vascular Access Assessment Type of access: GraftLUE forearm avg Surgeon - con Landry Staff and patient report access is working 12/01/21: u/s reviewed. Will refer for preemptive f'gram. Anemia Assessment WBC (BLOOD) x 103 cells/uL 5.8 (02/18/22) 10.8 (01/19/22) 8.5 (12/17/21) 6.0 (11/17/21) 6.2 (11/14/21) HGB g/dL 7.4 (03/04/22) TNP (03/02/22) 7.7 (02/23/22) 7.6 (02/18/22) 8.8 (02/09/22) PLATELETS x 103 cells/uL 145 (02/18/22) 191 (01/19/22) 209 (12/17/21) 167 (11/17/21) 140 (11/14/21) IRON SATURATION % 44 (02/18/22) 34 (01/19/22) 43 (12/17/21) 60 (11/17/21) 42 (11/14/21) FERRITIN ng/mL 1423 (02/18/22) 1288 (01/19/22) 1443 (12/17/21) 1537 (11/17/21) 1455 (11/14/21) Hemoglobin is below goal. Iron Saturation is at goal. Ferritin is above goal. Will adjust LINA and intravenous iron per protocol. hgb -03/24: Transfusion plan for 03/09/22 after dialysis. LINA has been cleared by onc MD to be administered by us. Transfusion dependent. We will share her hgb values done weekly with her onc [...] alb >/= 4; k 3.5-5.6; HCO3 17-24. 03/24: Alb suboptimal but K is fine. Push protein intake as able. HCO3 noted... Nov labs pending. Bone and Mineral Metabolism Assessment CALCIUM mg/dL [...] Ca x phos < 50; PTH 150-700 03/24: Phos is fine / well controlled. Ca is in goal as well. Nov labs pending. Cardiovascular Assessment Blood pressures reviewed and are acceptable. Intradialytic weight gains are appropriate. Estimated dry weight is appropriate. 12/22: Very very erratic bps. Hold on changes at this time due to frail physiology, often significantly anemic, etc. Transplant Status: Patient is not a candidate. Not transplant candidate due to obesity and her myeloma. Resuscitation Status Discussed with patient 11/10/21 who requested Full Code. 03/24: Await labs for Nov. continue current POC. 02/21: Lower rx time to 3 hr. [...] how things go once chemo restarted... Darrel Delgadillo MD [ Signed And locked electronically On 03/09/2022 at 08:32:37 AM ] Transcribed: Darrel Delgadillo ( 03/09/2022 ) documented in this encounter Plan of Treatment Not on filedocumented as of this encounter Visit Diagnoses Not on filedocumented in this encounter
--- OUTSIDE RECORDS SUMMARY | 2022-04-02 21:37 | XMS_ITS | Encounter Summary ---
:1950 Author Organization [facility] Address [address] [place] [address] Care Team Providers Name Role Phone Unavailable Primary Care Provider Unavailable Encounter Details Date Type Department Care Team Description 11/10/2021 Treatment [facility] f Darrel Lepe MD [address] [place] [address] [place], [place] [address] [place], [place] [phone] (Wo rk) Social History Tobacco Use Types Packs/Day Years Used Date Smoking Tobacco: Never Assessed Sex Assigned at Date Recorded Not on file documented as of this encounter Miscellaneous Notes Dialysis Note - Darrel Delgadillo MD - 11/10/2021 9:38 AM CDT Date: Nov 10, 2021 Patient Name: Charlotte Ramos : 1950 Chart #: [id number] Sex: F This patient was personally seen for a complete visit as part of routine monthly dialysis care. A review of the dialysis treatment, blood pressure, estimated dry weight and recent lab values was made. These were discussed with the patient and staff as necessary. ANALYST FOOD AND BEVERAGE: Darrel Delgadillo MD LOCATION: [facility] [phone] SCHEDULE: M-W-F 2nd Shift EDW: kg. DIALYZER: HD DURATION: NEEDLE SIZE: ANTICOAG: BATH: QB: ml/min QD: ml/min Subjective 11/21: New to me. Tolerating hd better since she [facility] Hosp 10/21/21-11/01/2021.Coronary angiogram on 10/29/21 which showed [...] Practitioner Subjective Review of Systems None reported. Problem List Description ICD9 Code ICD10 Code [...] Medications reviewed and no changes were made. amlodipine 5 mg qd, carvedilol 25 mg bid, losartan 25 mg qd, imdur 60 mg qd, furosemide 40 mg qd. 11/21: labs reviewed. continue as ordered. Treatment and Adequacy Assessment BUN mg/dL 29 (11/07/21) TNP (11/05/21) 57 (10/06/21) 60 (09/01/21) 72 (08/18/21) CREATININE (MG/DL) IN SER/PLAS mg/dL TNP (11/05/21) 5.69 (09/15/21) 6.16 (08/18/21) 5.03 (07/21/21) 4.69 (07/04/21) URR% % 79 (11/07/21) See Below (11/05/21) 77 (10/06/21) 75 (09/01/21) 72 (08/18/21) Dialysis is adequate. Achieves prescribed time - Yes Achieves prescribed frequency - Yes Missed treatments in past 30 days - 0 Goal sp kt/v >/= 1.2 11/21: at goal here. Vascular Access Assessment Type of access: GraftLUE forearm avg Surgeon - con Landry Staff and patient report access is working Anemia Assessment WBC (BLOOD) x 103 cells/uL 7.4 (11/05/21) 8.2 (09/15/21) 6.8 (08/18/21) 8.6 (07/21/21) 5.6 (07/04/21) HGB g/dL 8.7 (11/05/21) 11.0 (10/17/21) 9.9 (10/06/21) 9.9 (09/26/21) 9.8 (09/22/21) PLATELETS x 103 cells/uL 184 (11/05/21) 247 (09/15/21) 175 (08/18/21) 203 (07/21/21) 132 (07/04/21) IRON SATURATION % 29 (09/15/21) 23 (08/18/21) 32 (07/21/21) 42 (07/04/21) FERRITIN ng/mL 2458 (11/05/21) 1041 (09/15/21) 742 (08/18/21) 692 (07/21/21) 1114 (07/04/21) Hemoglobin is below goal. Iron Saturation is at goal. Ferritin is above goal. Will adjust LINA and intravenous iron per protocol. hgb 10-11/21: hgb has fallen since hosp d/c. LINA has been cleared by onc to be administered by us. Nutritional and Metabolic Assessment ALBUMIN (G/DL) g/dL Pending (11/05/21) 3.8 (09/15/21) 3.8 (08/18/21) 3.7 (07/21/21) 3.8 (07/04/21) POTASSIUM (MMOL/L) IN SER/PLAS mEq/L Pending (11/05/21) 5.3 (09/15/21) 4.9 (08/18/21) 4.5 (07/21/21) 4.4 (07/04/21) BICARBONATE (CO2) mEq/L Pending (11/05/21) 20 (09/15/21) 22 (08/18/21) 19 (07/21/21) 28 (07/04/21) Albumin is below goal. Potassium is above goal. Encourage low potassium diet. Bicarbonate is below goal. alb >/= 4; k 3.5-5.6; HCO3 17-24. 11/21: pending labs Bone and Mineral Metabolism Assessment CALCIUM mg/dL Pending (11/05/21) 9.2 (10/06/21) 8.1 (09/01/21) 8.2 (08/04/21) 8.3 (07/16/21) CORRECTED CALCIUM mg/dL 9.4 (10/06/21) 8.3 (09/01/21) 8.4 (08/04/21) 8.5 (07/16/21) 8.5 (07/04/21) PHOSPHORUS mg/dL Pending (11/05/21) 6.7 (10/06/21) TNP (09/26/21) 7.0 (09/15/21) 7.8 (09/01/21) CA*PO4 CORRCTD Calc 63.0 (10/06/21) 64.7 (09/01/21) 47.0 (08/04/21) 46.8 (07/16/21) 42.5 (07/04/21) IPTH pg/mL 16 (11/05/21) 385 (08/04/21) 121 (07/04/21) Corrected Calcium is at goal. Phosphorous is above goal. Ca X P product is above goal. Intact PTH is at goal. Ca 8.5-10; phos 3-5.5; Ca x phos < 50; PTH 150-700 11/21: labs pending from this month Cardiovascular Assessment Blood pressures reviewed and are acceptable. Intradialytic weight gains are appropriate. Estimated dry weight is appropriate. 11/21: Very very erratic bps. Hold on changes at this time. Transplant Status: Patient is not a candidate. Not transplant candidate due to obesity and her myeloma. Resuscitation Status Discussed with patient 11/10/21 who requested Full Code. 11/21: doing much better since cor angio. We will see how things go once chemo restarted... Darrel Delgadillo MD [ Signed And locked electronically On 11/10/2021 at 09:56:52 AM ] Transcribed: Darrel Delgadillo ( 11/10/2021 ) documented in this encounter Plan of Treatment Not on filedocumented as of this encounter Visit Diagnoses Not on filedocumented in this encounter
--- OUTSIDE RECORDS SUMMARY | 2022-04-02 21:37 | XMS_ITS | Encounter Summary ---
:1950 Author Organization [facility] Address [address] [place] [address] Care Team Providers Name Role Phone Unavailable Primary Care Provider Unavailable Encounter Details Date Type Department Care Team Description 12/01/2021 Treatment [facility] f Darrel Lepe MD [address] [place] [address] [place], [place] [address] [place], [place] [phone] (Wo rk) Social History Tobacco Use Types Packs/Day Years Used Date Smoking Tobacco: Never Assessed Sex Assigned at Date Recorded Not on file documented as of this encounter Miscellaneous Notes Dialysis Note - Darrel Delgadillo MD - 12/01/2021 9:05 AM CDT Date: Dec 01, 2021 Patient Name: Charlotte Ramos : 1950 Chart #: [id number] Sex: F This patient was personally seen for a complete visit as part of routine monthly dialysis care. A review of the dialysis treatment, blood pressure, estimated dry weight and recent lab values was made. These were discussed with the patient and staff as necessary. ASSISTANT PROFESSOR OF ART: Darrel Delgadillo MD LOCATION: [facility] [phone] SCHEDULE: -W- 2nd Shift EDW: kg. DIALYZER: HD DURATION: NEEDLE SIZE: ANTICOAG: BATH: QB: ml/min QD: ml/min Subjective 12/01: Doing well since seen last. Needed a blood transfusion this past weekend due to hgb ~6.4. No bleeding. Tolerating rx well. Seeing her onc MD today to discuss restarting chemo. Had a f'gram last week showing inc pressures suggesting a stenosis. 11/21: New to me. Tolerating hd better since she had cor stents placed at [facility]. Hosp 10/21/21-11/01/2021.Coronary angiogram on 10/29/21 which showed [...] 72 (08/18/21) CREATININE (MG/DL) IN SER/PLAS mg/dL 5.79 (11/17/21) 6.30 (11/14/21) TNP (11/05/21) 5.69 (09/15/21) 6.16 (08/18/21) URR% % 79 (11/07/21) See Below (11/05/21) 77 (10/06/21) 75 (09/01/21) 72 (08/18/21) Dialysis is adequate. Achieves prescribed time - Yes Achieves prescribed frequency - Yes Missed treatments in past 30 days - 0 Goal sp kt/v >/= 1.2 12/22: at goal here. Vascular Access Assessment Type of access: GraftLUE forearm avg Surgeon - con Landry Staff and patient report access is working 12/01/21: u/s reviewed. Will refer for preemptive f'gram. Anemia Assessment WBC (BLOOD) x 103 cells/uL 6.0 (11/17/21) 6.2 (11/14/21) 7.4 (11/05/21) 8.2 (09/15/21) 6.8 (08/18/21) HGB g/dL 7.6 (11/24/21) 8.1 (11/17/21) 7.8 (11/14/21) 7.6 (11/10/21) 8.7 (11/05/21) PLATELETS x 103 cells/uL 167 (11/17/21) 140 (11/14/21) 184 (11/05/21) 247 (09/15/21) 175 (08/18/21) IRON SATURATION % 60 (11/17/21) 42 (11/14/21) 29 (09/15/21) 23 (08/18/21) 32 (07/21/21) FERRITIN ng/mL 1537 (11/17/21) 1455 (11/14/21) 2458 (11/05/21) 1041 (09/15/21) 742 (08/18/21) Hemoglobin is below goal. Iron Saturation is at goal. Ferritin is above goal. Will adjust LINA and intravenous iron per protocol. hgb 10-11 12/22: hgb has fallen since hosp d/c. LINA has been cleared by onc to be administered by us. Transfusion dependent. We will share her hgb values done weekly with her onc MD. Nutritional and Metabolic Assessment ALBUMIN (G/DL) g/dL 3.6 (11/17/21) 3.5 (11/14/21) Pending (11/05/21) 3.8 (09/15/21) 3.8 (08/18/21) POTASSIUM (MMOL/L) IN SER/PLAS mEq/L 4.6 (11/17/21) 4.7 (11/14/21) Pending (11/05/21) 5.3 (09/15/21) 4.9 (08/18/21) BICARBONATE (CO2) mEq/L 18 (11/17/21) 16 (11/14/21) Pending (11/05/21) 20 (09/15/21) 22 (08/18/21) Albumin is below goal. Potassium is at goal. Encourage low potassium diet. Bicarbonate is at goal. Continue same bicarbonate in dialysate. alb >/= 4; k 3.5-5.6; HCO3 17-24. 12/22: Alb suboptimal but improving... K is fine and HCO3 is at goal. Push protein intake as able. Bone and Mineral Metabolism Assessment CALCIUM mg/dL 8.2 (11/14/21) Pending (11/05/21) 9.2 (10/06/21) 8.1 (09/01/21) 8.2 (08/04/21) CORRECTED CALCIUM mg/dL 8.6 (11/14/21) 9.4 (10/06/21) 8.3 (09/01/21) 8.4 (08/04/21) 8.5 (07/16/21) PHOSPHORUS mg/dL 7.1 (11/24/21) 6.9 (11/14/21) Pending (11/05/21) 6.7 (10/06/21) TNP (09/26/21) CA*PO4 CORRCTD Calc 59.3 (11/14/21) 63.0 (10/06/21) 64.7 (09/01/21) 47.0 (08/04/21) 46.8 (07/16/21) IPTH pg/mL 16 (11/05/21) 385 (08/04/21) 121 (07/04/21) Corrected Calcium is at goal. Phosphorous is above goal. Ca X P product is above goal. Intact PTH is below goal. Ca 8.5-10; phos 3-5.5; Ca x phos < 50; PTH 150-700 12/22: labs from October noted; phos needs much work. Ca is fine on the other hand. Based on malignancy,suppressed PTH is not surprising. Cardiovascular Assessment Blood pressures reviewed and are acceptable. Intradialytic weight gains are appropriate. Estimated dry weight is appropriate. 12/22: Very very erratic bps. Hold on changes at this time due to frail physiology, often significantly anemic, etc. Transplant Status: Patient is not a candidate. Not transplant candidate due to obesity and her myeloma. Resuscitation Status Discussed with patient 11/10/21 who requested Full Code. 12/22: Await word on chemo restarting. Transfuse PRN 11/21: doing much better since cor angio. We will see how things go once chemo restarted... Darrel Delgadillo MD [ Signed And locked electronically On 12/01/2021 at 09:10:46 AM ] Transcribed: Darrel Delgadillo ( 12/01/2021 ) documented in this encounter Plan of Treatment Not on filedocumented as of this encounter Visit Diagnoses Not on filedocumented in this encounter
--- OUTSIDE RECORDS SUMMARY | 2022-04-02 21:37 | XMS_ITS | Encounter Summary ---
:1950 Author Organization [facility] Address [address] [place] [address] Care Team Providers Name Role Phone Unavailable Primary Care Provider Unavailable Encounter Details Date Type Department Care Team Description 08/22/2021 Telephone [facility] f Edna Myers RN [address] [place] [address] [facility] [address] [place] [phone] (Wo rk) Social History Tobacco Use Types Packs/Day Years Used Date Smoking Tobacco: Never Assessed Sex Assigned at Date Recorded Not on file documented as of this encounter Miscellaneous Notes Telephone Encounter - Edna Kelly RN - 08/22/2021 9:52 AM CDT Sarah Jensen called to have 08/20 dialysis note faxed to them at [phone]. Note faxed. documented in this encounter Plan of Treatment Not on filedocumented as of this encounter Visit Diagnoses Not on filedocumented in this encounter
--- OUTSIDE RECORDS SUMMARY | 2022-04-02 21:37 | XMS_ITS | Encounter Summary ---
:1950 Author Organization [facility] Address [address] [place] [address] Care Team Providers Name Role Phone Unavailable Primary Care Provider Unavailable Encounter Details Date Type Department Care Team Description 10/06/2021 Orders Only [facility] Westley Meeks MD [address] [place] [address] ALESSIA JENSEN [id number] Social History Tobacco Use Types Packs/Day Years Used Date Smoking Tobacco: Never Assessed Sex Assigned at Date Recorded Not on file documented as of this encounter Plan of Treatment Not on filedocumented as of this encounter Procedures Procedure Name Priority Date/Time Associated Comments Diagnosis CARMEN/PHOS W/RATI (HC) Routine 01/02/2022 4:00 AM [...] results section. HCT CALC HGBX3 (HC) Routine 12/29/2021 4:00 AM Re sults for this CDT procedure are i n the results section. HEMOGLOBIN Routine 12/29/2021 4:00 AM Results f or this CDT procedure are i n the results section. HCT CALC HGBX3 (HC) Routine 12/22/2021 4:00 AM Re sults for this CDT procedure are i n the results section. HEMOGLOBIN Routine 12/22/2021 4:00 AM Results f or this CDT procedure are i n the results section. MONTHLY HD W/O CA/PH Routine 12/17/2021 4:00 AM R esults for this (HC) CDT procedure are i n the results section. IRON PANEL (FE, Routine 12/17/2021 4:00 AM Result s for this TIBC, TSAT) CDT procedure are i n the results section. HEPATITIS B SURFACE Routine 12/17/2021 4:00 AM Re sults for this ANTIGEN CDT procedure are i n the results section. ALT Routine 12/17/2021 4:00 AM Results f or this CDT procedure are i n the results section. PHOSPHATE ( Routine 12/17/2021 4:00 AM Results for this PHOSPHORUS) CDT procedure are i n the results section. GLUCOSE, RANDOM Routine 12/17/2021 4:00 AM Result s for this CDT procedure are i n the results section. FERRITIN Routine 12/17/2021 4:00 AM Results f or this CDT procedure are i n the results section. CREATININE, SERUM Routine 12/17/2021 4:00 AM Resu lts for this CDT procedure are i n the results section. HCT CALC HGBX3 (HC) Routine 12/08/2021 4:00 AM Re sults for this CDT procedure are i n the results section. HEMOGLOBIN Routine 12/08/2021 4:00 AM Results f or this CDT procedure are i n the results section. CARMEN/PHOS W/RATI (HC) Routine 12/01/2021 4:00 AM R esults for this CDT procedure are i n the results section. KT/V DAUGIRDAS (HC) Routine 12/01/2021 4:00 AM Re sults for this CDT procedure are i n the results section. HCT CALC HGBX3 (HC) Routine 12/01/2021 4:00 AM Re sults for this CDT procedure are i n the results section. HEMOGLOBIN Routine 12/01/2021 4:00 AM Results f or this CDT procedure are i n the results section. HCT CALC HGBX3 (HC) Routine 11/24/2021 4:00 AM Re sults for this CDT procedure are i n the results section. HEMOGLOBIN Routine 11/24/2021 4:00 AM Results f or this CDT procedure are i n the results section. PHOSPHATE ( Routine 11/24/2021 4:00 AM Results for this PHOSPHORUS) CDT procedure are i n the results section. HCV PANEL PROTOCOL Routine 11/17/2021 4:00 AM Res ults for this (HC) CDT procedure are i n the results section. MONTHLY HD W/O CA/PH Routine 11/17/2021 4:00 AM R esults for this (HC) CDT procedure are i n the results section. IRON PANEL (FE, Routine 11/17/2021 4:00 AM Result s for this TIBC, TSAT) CDT procedure are i n the results section. HEPATITIS B SURFACE Routine 11/17/2021 4:00 AM Re sults for this ANTIGEN CDT procedure are i n the results section. ALT Routine 11/17/2021 4:00 AM Results f or this CDT procedure are i n the results section. HEMOGLOBIN A1C Routine 11/17/2021 4:00 AM Results for this CDT procedure are i n the results section. GLUCOSE, RANDOM Routine 11/17/2021 4:00 AM Result s for this CDT procedure are i n the results section. FERRITIN Routine 11/17/2021 4:00 AM Results f or this CDT procedure are i n the results section. CREATININE, SERUM Routine 11/17/2021 4:00 AM Resu lts for this CDT procedure are i n the results section. MONTH COMPOSITE (HC) Routine 11/14/2021 4:00 AM R esults for this CDT procedure are i n the results section. IRON PANEL (FE, Routine 11/14/2021 4:00 AM Result s for this TIBC, TSAT) CDT procedure are i n the results section. HEPATITIS B SURFACE Routine 11/14/2021 4:00 AM Re sults for this ANTIGEN CDT procedure are i n the results section. FERRITIN Routine 11/14/2021 4:00 AM Results f or this CDT procedure are i n the results section. CREATININE, SERUM Routine 11/14/2021 4:00 AM Resu lts for this CDT procedure are i n the results section. HCT CALC HGBX3 (HC) Routine 11/10/2021 4:00 AM Re sults for this CDT procedure are i n the results section. HEMOGLOBIN Routine 11/10/2021 4:00 AM Results f or this CDT procedure are i n the results section. KT/V DAUGIRDAS (HC) Routine 11/07/2021 4:00 AM Re sults for this CDT procedure are i n the results section. CARMEN/PHOS W/RATI (HC) Routine 11/05/2021 4:00 AM CDT KT/V DAUGIRDAS (HC) Routine 11/05/2021 4:00 AM Re sults for this CDT procedure are i n the results section. MONTHLY HD W/O CA/PH Routine 11/05/2021 4:00 AM R esults for this (HC) CDT procedure are i n the results section. IRON PANEL (FE, Routine 11/05/2021 4:00 AM TIBC, TSAT) CDT HEPATITIS B SURFACE Routine 11/05/2021 4:00 AM Re sults for this ANTIGEN CDT procedure are i n the results section. ALT Routine 11/05/2021 4:00 AM Results f or this CDT procedure are i n the results section. PTH, INTACT Routine 11/05/2021 4:00 AM Results f or this CDT procedure are i n the results section. GLUCOSE, RANDOM Routine 11/05/2021 4:00 AM Result s for this CDT procedure are i n the results section. FERRITIN Routine 11/05/2021 4:00 AM Results f or this CDT procedure are i n the results section. CREATININE, SERUM Routine 11/05/2021 4:00 AM Resu lts for this CDT procedure are i n the results section. HCT CALC HGBX3 (HC) Routine 10/17/2021 4:00 AM Re sults for this CDT procedure are i n the results section. HEMOGLOBIN Routine 10/17/2021 4:00 AM Results f or this CDT procedure are i n the results section. CARMEN/PHOS W/RATI (HC) Routine 10/06/2021 4:00 AM R esults for this CDT procedure are i n the results section. KT/V DAUGIRDAS (HC) Routine 10/06/2021 4:00 AM Re sults for this CDT procedure are i n the results section. HCT CALC HGBX3 (HC) Routine 10/06/2021 4:00 AM Re sults for this CDT procedure are i n the results section. HEMOGLOBIN Routine 10/06/2021 4:00 AM Results f or this CDT procedure are i n the results section. documented in this encounter Results (ABNORMAL) HCT CALC HGBX3 (01/02/2022 4:00 AM CDT) Analysis Performed At Patho logist Time Signature Hemoglobin x 3 25.5 (L) 37.0 - APS DAVITA 47.0 % [facility] Comment: Reference Range is for adult patients. ? ?Refer to pediatric reference ranges in the Lab Reference Manual for age-specifi c reference ranges. Specimen Anatomical Collection Method Collection Time Receive d Time (Source) Location / / Volume Laterality 01/02/2022 4:00 AM 2 3:00 CDT PM CDT Darrel Delgadillo MD LAB [id number] NSOLICITED RESULTS Performing Organization Address City/[facility]/ZIP Code Phon e Number APS DAVITA [facility] (ABNORMAL) Hemoglobin (01/02/2022 4:00 AM CDT) P athologist Signature Hgb 8.5 (L) 12.0 - 16.0 APS DAVITA g/dL [facility] Specimen Anatomical Collection Method Collection Time Receive d Time (Source) Location / / Volume Laterality 01/02/2022 4:00 AM 2 3:00 CDT PM CDT Darrel Delgadillo MD LAB BLOOD ORDERABLES Performing Organization Address City/[facility]/ZIP Code Phon e Number APS DAVITA [facility] (ABNORMAL) KT/V DAUGIRDAS (01/02/2022 4:00 AM CDT) P athologist Signature BUN 42 (H) 9 - 23 APS DAVITA mg/dL [facility] BUN Post 10 9 - 23 APS DAVITA Dialysis mg/dL [facility] URR% 76 65 - 100 % APS DAVITA [facility] Specimen Anatomical Collection Method Collection Time Receive d Time (Source) Location / / Volume Laterality 01/02/2022 4:00 AM 2 3:00 CDT PM CDT Darrel Delgadillo MD LAB [id number] NSOLICITED RESULTS Performing Organization Address City/State/ZIP Code Phon e Number APS DAVITA [facility] CARMEN/PHOS W/RATI (01/02/2022 4:00 AM CDT) P athologist Signature Calcium 9.0 8.7 - 10.4 APS DAVITA mg/dL [facility] Phosphorus, 4.9 2.4 - 5.1 APS DAVITA Serum mg/dL [facility] CA/PHOS PRODUCT 44.1 21 - 53 APS DAVITA Calc [facility] Corrected 9.2 8.7 - 10.4 APS DAVITA Calcium mg/dL [facility] CA*PO4 CORRCTD 45.1 21 - 53 APS DAVITA Calc [facility] Specimen Anatomical Collection Method Collection Time Receive d Time (Source) Location / / Volume Laterality 01/02/2022 4:00 AM 2 3:00 CDT PM CDT Darrel Delgadillo MD LAB [id number] NSOLICITED RESULTS Performing Organization Address [facility] Phon e Number APS DAVITA [facility] (ABNORMAL) HCT CALC HGBX3 (12/29/2021 4:00 AM CDT) Analysis Performed At Patho logist Time Signature Hemoglobin x 3 27.0 (L) 37.0 - APS DAVITA 47.0 % [facility] Comment: Reference Range is for adult patients. ? ?Refer to pediatric reference ranges in the Lab Reference Manual for age-specifi c reference ranges. Specimen Anatomical Collection Method Collection Time Receive d Time (Source) Location / / Volume Laterality 12/29/2021 4:00 AM 2 2:47 CDT PM CDT Darrel Delgadillo MD LAB [id number] NSOLICITED RESULTS Performing Organization Address City/[facility]/ZIP Code Phon e Number APS DAVITA [facility] (ABNORMAL) Hemoglobin (12/29/2021 4:00 AM CDT) P athologist Signature Hgb 9.0 (L) 12.0 - 16.0 APS DAVITA g/dL [facility] Specimen Anatomical Collection Method Collection Time Receive d Time (Source) Location / / Volume Laterality 12/29/2021 4:00 AM 2 2:47 CDT PM CDT Darrel Delgadillo MD LAB BLOOD ORDERABLES Performing Organization Address City/[facility]/ZIP [facility] Phon e Number APS DAVITA [facility] (ABNORMAL) Hemoglobin (12/22/2021 4:00 AM CDT) athologist Signature Hgb 8.9 (L) 12.0 - 16.0 APS DAVITA g/dL [facility] Specimen Anatomical Collection Method Collection Time Receive d Time (Source) Location / / Volume Laterality 12/22/2021 4:00 AM 4:22 CDT PM CDT Darrel Delgadillo MD LAB BLOOD ORDERABLES Performing Organization Address City/[facility]/ZIP Code Phon e Number APS DAVITA [facility] (ABNORMAL) HCT CALC HGBX3 (12/22/2021 4:00 AM CDT) [facility] Hemoglobin x 3 26.7 (L) 37.0 - APS DAVITA 47.0 % [facility] Comment: Reference Range is for adult patients. ? ?Refer to pediatric reference ranges in the Lab Reference Manual for age-specifi c reference ranges. Specimen Anatomical Collection Method Collection Time Receive d Time (Source) Location / / Volume Laterality 12/22/2021 4:00 AM 4:22 CDT PM CDT Darrel Delgadillo MD LAB [id number] NSOLICITED RESULTS Performing Organization Address [facility] Phon e Number APS DAVITA [facility] Hepatitis B Surface Antigen (12/17/2021 4:00 AM CDT) athologist Signature Hep B Surface NEG -NEG APS DAVITA Antigen [facility] Comment: This test utilizes Biotin (Vitamin B7) a s one of it's reagents. Testing may be interfered with in patients consuming Bi otin supplements. Please factor this when reviewing results. Specimen Anatomical Collection Method Collection Time Receive d Time (Source) Location / / Volume Laterality 12/17/2021 4:00 AM 9:27 CDT AM CDT Darrel Delgadillo MD LAB BLOOD ORDERABLES Performing Organization Address City/[facility]/ZIP Code Phon e Number APS DAVITA [facility] (ABNORMAL) Ferritin (12/17/2021 4:00 AM CDT) athologist Signature Ferritin 1,443 (H) 10 - 291 APS DAVITA ng/mL [facility] Specimen Anatomical Collection Method Collection Time Receive d Time (Source) Location / / Volume Laterality 12/17/2021 4:00 AM 2 9:27 CDT AM CDT Darrel Delgadillo MD LAB BLOOD ORDERABLES Performing Organization Address [facility] Phon e Number APS DAVITA [facility] ALT (12/17/2021 4:00 AM CDT) athologist Signature ALT (SGPT) 15 10 - 49 U/L APS DAVITA [facility] Specimen Anatomical Collection Method Collection Time Receive d Time (Source) Location / / Volume Laterality 12/17/2021 4:00 AM 2 9:27 CDT AM CDT Darrel Delgadillo MD LAB BLOOD ORDERABLES Performing Organization Address [facility] Phon e Number APS DAVITA [facility] Phosphorus (12/17/2021 4:00 AM CDT) athologist Signature Phosphorus, 4.7 2.4 - 5.1 APS DAVITA Serum mg/dL [facility] Comment: Rechecked and verified by dilut ion Specimen Anatomical Collection Method Collection Time Receive d Time (Source) Location / / Volume Laterality 12/17/2021 4:00 AM 2 9:27 CDT AM CDT Darrel Delgadillo MD LAB BLOOD ORDERABLES Performing Organization Address [facility] Phon e Number APS DAVITA [facility] (ABNORMAL) Glucose, random (12/17/2021 4:00 AM CDT) athologist Signature Glucose 182 (H) 70 - 99 APS DAVITA mg/dL [facility] Specimen Anatomical Collection Method Collection Time Receive d Time (Source) Location / / Volume Laterality 12/17/2021 4:00 AM 2 9:27 CDT AM CDT Darrel Delgadillo MD LAB BLOOD ORDERABLES Performing Organization Address [facility] Phon e Number APS DAVITA [facility] (ABNORMAL) Creatinine, serum (12/17/2021 4:00 AM CDT) athologist Signature Creatinine 6.04 (H) 0.50 - 1.10 APS DAVITA mg/dL [facility] Specimen Anatomical Collection Method Collection Time Receive d Time (Source) Location / / Volume Laterality 12/17/2021 4:00 AM 2 9:27 CDT AM CDT Darrel Delgadillo MD LAB BLOOD ORDERABLES Performing Organization Address City/State/ZIP Code Phon e Number APS DAVITA [facility] (ABNORMAL) Iron Panel (Fe, TIBC, TSAT) (12/17/2021 4:00 AM CDT) P athologist Signature Iron 86 50 - 170 APS DAVITA ug/dL [facility] TIBC 200 (L) 250 - 425 APS DAVITA ug/dL [facility] UIBC 114 80 - 375 APS DAVITA ug/dL [facility] Iron Saturation 43 16 - 46 % APS DAVITA (TSat) [facility] Specimen Anatomical Collection Method Collection Time Receive d Time (Source) Location / / Volume Laterality 12/17/2021 4:00 AM 2 9:27 CDT AM CDT Darrel Delgadillo MD LAB BLOOD ORDERABLES Performing Organization Address City/State/ZIP Code Phon e Number APS DAVITA [facility] (ABNORMAL) MONTHLY HD W/O CA/PH (12/17/2021 4:00 AM CDT) Patholo gist Method Time Signature Potassium 5.3 3.5 - 5.5 APS DAVITA mEq/L [facility] Chloride 106 99 - 109 APS DAVITA mEq/L [facility] Bicarbonate 18 (L) 20 - 31 APS DAVITA (CO2) mEq/L [facility] Protein, Total 7.3 5.7 - 8.2 APS DAVITA g/dL [facility] Albumin 3.7 3.4 - 4.8 APS DAVITA g/dL [facility] AST (SGOT) 14 0 - 33 APS DAVITA U/L [facility] LDH 189 120 - 246 APS DAVITA U/L [facility] Alkaline 99 46 - 116 APS DAVITA Phosphatase U/L [facility] WBC 8.5 4.5 - APS DAVITA 11.0 x [facility] 10'3 cells/uL RBC 2.58 (L) 4.20 - APS DAVITA 5.40 x [facility] 10'6 cells/uL Hgb 9.1 (L) 12.0 - APS DAVITA 16.0 g/dL [facility] Hematocrit 28.6 (L) 37.0 - APS DAVITA 47.0 % [facility] MCV 111.1 (H) 80.0 - APS DAVITA 100.0 fL [facility] Comment: NOTE: MCV may be falsely elevat ed in aged samples (approximately 72 hours). MCH 35.4 (H) 27.0 - 31.0 pg APS DAVITA [facility] N MCHC 31.9 (L) 32.0 - 36.0 g/dL APS DAVITA [place] MMN RDW 20.7 (H) 11.0 - 15.0 % APS DAVITA [facility] Platelets 209 150 - 400 x 10'3 cells/uL APS DAVITA [facility] Neutrophils % Auto 61.5 % APS DAVITA [facility] Lymphocytes Manual 30.1 % APS DAVITA [facility] Monocytes Manual 4.9 % APS DAVITA [place] MMN Eosinophil % 3.2 % APS DAVITA [facility] Basophils Relative 0.3 % APS DAVITA [facility] Neutrophils Absolute 5,252.10 2,000 - 8,800 Cell/uL APS DAVITA [facility] Lymphocytes Absolute 2,570.54 1,100 - 4,800 Cell/uL APS DAVITA [facility] Monocytes Absolute 418.46 0 - 1,100 Cell/uL APS DAVITA [facility] Eosinophils Absolute 273.28 0 - 700 Cell/uL APS DAVITA [facility] Basophils Absolute 25.62 0 - 400 Cell/uL APS D AVITA [facility] Comment: NOTE:Diff percentage results will contin ue to be reported but without reference ranges per CAP guidelines and will not b e flagged as normal or abnormal. Absolute concentrations of circulating W BC are the preferable method of reporting and will continue to be evalua deidre against established reference ranges. Globulin 3.6 0.9 - 5 g/dL APS DAVITA [facility] A/G Ratio 1.0 1 - 2.5 Calc APS DAVITA [facility] Hemoglobin x 3 27.3 (L) 37.0 - 47.0 % APS DAVITA [facility] Comment: Reference Range is for adult patients. ? ?Refer to pediatric reference ranges in the Lab Reference Manual for age-specifi c reference ranges. Specimen Anatomical Collection Method Collection Time Receive d Time (Source) Location / / Volume Laterality 12/17/2021 4:00 AM 2 9:27 CDT AM CDT Darrel Delgadillo MD LAB [id number] NSOLICITED RESULTS Performing Organization Address City/State/ZIP Code Phon e Number SUZANNE WYATT [facility] (ABNORMAL) Hemoglobin (12/08/2021 4:00 AM CDT) P athologist Signature Hgb 9.1 (L) 12.0 - 16.0 APS DAVITA g/dL [facility] Specimen Anatomical Collection Method Collection Time Receive d Time (Source) Location / / Volume Laterality 12/08/2021 4:00 AM 2 9:30 CDT PM CDT Darrel Delgadillo MD LAB BLOOD ORDERABLES Performing Organization Address City/[facility]/ZIP Code Phon e Number SUZANNE WYATT [facility] (ABNORMAL) HCT CALC HGBX3 (12/08/2021 4:00 AM CDT) Analysis Performed At Patho logist Time Signature Hemoglobin x 3 27.3 (L) 37.0 - APS DAVITA 47.0 % [facility] Comment: Reference Range is for adult patients. ? ?Refer to pediatric reference ranges in the Lab Reference Manual for age-specifi c reference ranges. Specimen Anatomical Collection Method Collection Time Receive d Time (Source) Location / / Volume Laterality 12/08/2021 4:00 AM 2 9:30 CDT PM CDT Darrel Delgadillo MD LAB [id number] NSOLICITED RESULTS Performing Organization Address [facility]/ZIP Code Phon e Number APS YOSELIN [facility] (ABNORMAL) HCT CALC HGBX3 (12/01/2021 4:00 AM CDT) Analysis Performed At Patho logist Time Signature Hemoglobin x 3 27.3 (L) 37.0 - APS DAVITA 47.0 % [facility] Specimen Anatomical Collection Method Collection Time Receive d Time (Source) Location / / Volume Laterality 12/01/2021 4:00 AM 2 9:19 CDT PM CDT Darrel Delgadillo MD LAB [id number] NSOLICITED RESULTS Performing Organization Address City/[facility]/ZIP Code Phon e Number APS DAVKATHY [facility] (ABNORMAL) Hemoglobin (12/01/2021 4:00 AM CDT) athologist Signature Hgb 9.1 (L) 12.0 - 16.0 APS DAVITA g/dL [facility] Specimen Anatomical Collection Method Collection Time Receive d Time (Source) Location / / Volume Laterality 12/01/2021 4:00 AM 2 9:19 CDT PM CDT Darrel Delgadillo MD LAB BLOOD ORDERABLES Performing Organization Address City/State/ZIP Code Phon e Number APS DAVITA [facility] (ABNORMAL) KT/V DAUGIRDAS (12/01/2021 4:00 AM CDT) athologist Signature BUN 51 (H) 9 - 23 APS DAVITA mg/dL [facility] BUN Post 12 9 - 23 APS DAVITA Dialysis mg/dL [facility] URR% 76 65 - 100 % APS DAVITA [facility] Specimen Anatomical Collection Method Collection Time Receive d Time (Source) Location / / Volume Laterality 12/01/2021 4:00 AM 2 9:19 CDT PM CDT Darrel Delgadillo MD LAB [id number] NSOLICITED RESULTS Performing Organization Address City/[facility]/ZIP Code Phon e Number APS DAVITA [facility] (ABNORMAL) CARMEN/PHOS W/RATI (12/01/2021 4:00 AM CDT) athologist Signature Calcium 9.0 8.7 - 10.4 APS DAVITA mg/dL [facility] Phosphorus, 6.6 (H) 2.4 - 5.1 APS DAVITA Serum mg/dL [facility] CA/PHOS 59.4 (H) 21 - 53 APS DAVITA PRODUCT Calc [facility] Corrected 9.3 8.7 - 10.4 APS DAVITA Calcium mg/dL [facility] CA*PO4 CORRCTD 61.4 (H) 21 - 53 APS DAVITA Calc [facility] Specimen Anatomical Collection Method Collection Time Receive d Time (Source) Location / / Volume Laterality 12/01/2021 4:00 AM 2 9:19 CDT PM CDT Darrel Delgadillo MD LAB [id number] NSOLICITED RESULTS Performing Organization Address City/State/ZIP Code Phon e Number APS DAVITA [facility] (ABNORMAL) Phosphorus (11/24/2021 4:00 AM CDT) P athologist Signature Phosphorus, 7.1 (H) 2.4 - 5.1 APS DAVITA Serum mg/dL [facility] Specimen Anatomical Collection Method Collection Time Receive d Time (Source) Location / / Volume Laterality 11/24/2021 4:00 AM 2 6:54 CDT PM CDT Darrel Delgadillo MD LAB BLOOD ORDERABLES Performing Organization Address City/State/ZIP Code Phon e Number APS DAVITA [facility] (ABNORMAL) Hemoglobin (11/24/2021 4:00 AM CDT) athologist Signature Hgb 7.6 (L) 12.0 - 16.0 APS DAVITA g/dL [facility] Specimen Anatomical Collection Method Collection Time Receive d Time (Source) Location / / Volume Laterality 11/24/2021 4:00 AM 2 6:54 CDT PM CDT Darrel Delgadillo MD LAB BLOOD ORDERABLES Performing Organization Address City/State/ZIP Code Phon e Number APS DAVITA [facility] (ABNORMAL) HCT CALC HGBX3 (11/24/2021 4:00 AM CDT) Analysis Performed At Patho logist Time Signature Hemoglobin x 3 22.8 (L) 37.0 - APS DAVITA 47.0 % [facility] Specimen Anatomical Collection Method Collection Time Receive d Time (Source) Location / / Volume Laterality 11/24/2021 4:00 AM 2 6:54 CDT PM CDT Darrel Delgadillo MD LAB [id number] NSOLICITED RESULTS Performing Organization Address City/State/ZIP Code Phon e Number APS DAVITA [facility] Hepatitis B Surface Antigen (11/17/2021 4:00 AM CDT) athologist Signature Hep B Surface NEG -NEG APS DAVITA Antigen [facility] Comment: This test utilizes Biotin (Vitamin B7) a s one of it's reagents. Testing may be interfered with in patients consuming Bi otin supplements. Please factor this when reviewing results. Specimen Anatomical Collection Method Collection Time Receive d Time (Source) Location / / Volume Laterality 11/17/2021 4:00 AM 2 CDT 12:55 PM CDT Westley Vidal MD LAB BLOOD ORDERABLES Performing Organization Address [facility]/ZIP Code Phon e Number SUZANNE WYATT [facility] (ABNORMAL) Ferritin (11/17/2021 4:00 AM CDT) P athologist Signature Ferritin 1,537 (H) 10 - 291 APS DAVITA ng/mL [facility] Specimen Anatomical Collection Method Collection Time Receive d Time (Source) Location / / Volume Laterality 11/17/2021 4:00 AM 2 CDT 12:55 PM CDT Westley Vidal MD LAB BLOOD ORDERABLES Performing Organization Address City/[facility]/ZIP Code Phon e Number SUZANNE WYATT [facility] (ABNORMAL) Hemoglobin A1c (11/17/2021 4:00 AM CDT) P athologist Signature Hemoglobin A1C 6.7 (H) 0.0 - 5.6 APS DAVITA %A1c [facility] Specimen Anatomical Collection Method Collection Time Receive d Time (Source) Location / / Volume Laterality 11/17/2021 4:00 AM 2 CDT 12:55 PM CDT Westley Vidal MD LAB BLOOD ORDERABLES Performing Organization Address City/[facility]/ZIP Code Phon e Number APS SARAHIITA [facility] ALT (11/17/2021 4:00 AM CDT) P athologist Signature ALT (SGPT) 12 10 - 49 U/L APS DAVITA [facility] Specimen Anatomical Collection Method Collection Time Receive d Time (Source) Location / / Volume Laterality 11/17/2021 4:00 AM 2 CDT 12:55 PM CDT Westley Vidal MD LAB BLOOD ORDERABLES Performing Organization Address City/[facility]/ZIP Code Phon e Number APS DAVITA [facility] (ABNORMAL) Glucose, random (11/17/2021 4:00 AM CDT) P athologist Signature Glucose 160 (H) 70 - 99 APS DAVITA mg/dL [facility] Specimen Anatomical Collection Method Collection Time Receive d Time (Source) Location / / Volume Laterality 11/17/2021 4:00 AM 2 CDT 12:55 PM CDT Westley Vidal MD LAB BLOOD ORDERABLES Performing Organization Address City/[facility]/ZIP Code Phon e Number APS YOSELIN [facility] (ABNORMAL) Creatinine, serum (11/17/2021 4:00 AM CDT) P athologist Signature Creatinine 5.79 (H) 0.50 - 1.10 APS DAVITA mg/dL [facility] Specimen Anatomical Collection Method Collection Time Receive d Time (Source) Location / / Volume Laterality 11/17/2021 4:00 AM 2 CDT 12:55 PM CDT Westley Vidal MD LAB BLOOD ORDERABLES Performing Organization Address [facility] Code Phon e Number SUZANNE WYATT [facility] HCV PANEL PROTOCOL (11/17/2021 4:00 AM CDT) athologist Signature Hepatitis C 0.08 0.00 - APS DAVITA Antibody 0.79 [facility] [...] Time (Source) Location / / Volume Laterality 11/17/2021 4:00 AM 2 CDT 12:55 PM CDT Westley Vidal MD LAB [id number] NSOLICITED RESULTS Performing Organization Address City/[facility]/ZIP Code Phon e Number APS SARAHIITA [facility] (ABNORMAL) Iron Panel (Fe, TIBC, TSAT) (11/17/2021 4:00 AM CDT) P athologist Signature Iron 118 50 - 170 APS DAVITA ug/dL [facility] TIBC 198 (L) 250 - 425 APS DAVITA ug/dL [facility] UIBC 80 80 - 375 APS DAVITA ug/dL [facility] Iron Saturation 60 (H) 16 - 46 % APS DAVITA (TSat) [facility] Specimen Anatomical Collection Method Collection Time Receive d Time (Source) Location / / Volume Laterality 11/17/2021 4:00 AM CDT 12:55 PM CDT Westley Vidal MD LAB BLOOD ORDERABLES Performing Organization Address City/State/ZIP Code Phon e Number APS DAVITA [facility] (ABNORMAL) MONTHLY HD W/O CA/PH (11/17/2021 4:00 AM CDT) [facility] gist Method Time Signature Potassium 4.6 3.5 - 5.5 APS DAVITA mEq/L [facility] Chloride 107 99 - 109 APS DAVITA mEq/L [facility] Bicarbonate 18 (L) 20 - 31 APS DAVITA (CO2) mEq/L [facility] Protein, Total 6.8 5.7 - 8.2 APS DAVITA g/dL [facility] Albumin 3.6 3.4 - 4.8 APS DAVITA g/dL [facility] AST (SGOT) 15 0 - 33 APS DAVITA U/L [facility] LDH 238 120 - 246 APS DAVITA U/L [facility] Alkaline 98 46 - 116 APS DAVITA Phosphatase U/L [facility] WBC 6.0 4.5 - APS DAVITA 11.0 x [facility] 10'3 cells/uL RBC 2.25 (L) 4.20 - APS DAVITA 5.40 x [facility] 10'6 cells/uL Hgb 8.1 (L) 12.0 - APS DAVITA 16.0 g/dL [facility] Hematocrit 25.3 (L) 37.0 - APS DAVITA 47.0 % [facility] Hemoglobin x 3 24.3 (L) 37.0 - APS DAVITA 47.0 % [facility] MCV 112.4 (H) 80.0 - APS DAVITA 100.0 fL [facility] Comment: NOTE: MCV may be falsely elevat ed in aged samples (approximately 72 hours). MCH 36.0 (H) 27.0 - 31.0 pg APS DAVITA [facility] N MCHC 32.0 32.0 - 36.0 g/dL APS DAVITA [place] MMN RDW 19.2 (H) 11.0 - 15.0 % APS DAVITA [facility] Platelets 167 150 - 400 x 10'3 cells/uL APS DAVITA [facility] Neutrophils % Auto 57.2 % APS DAVITA [facility] Lymphocytes Manual 26.4 % APS DAVITA [facility] Monocytes Manual 5.4 % APS DAVITA [place] MMN Eosinophil % 10.6 % APS DAVITA [facility] Basophils Relative 0.3 % APS DAVITA [facility] Neutrophils Absolute 3,420.56 2,000 - 8,800 Cell/uL APS DAVITA [facility] Lymphocytes Absolute 1,578.72 1,100 - 4,800 Cell/uL APS DAVITA [facility] Monocytes Absolute 322.92 0 - 1,100 Cell/uL APS DAVITA [facility] Eosinophils Absolute 633.88 0 - 700 Cell/uL APS DAVITA [facility] Basophils Absolute 17.94 0 - 400 Cell/uL APS D AVITA [facility] Comment: NOTE:Diff percentage results will contin ue to be reported but without reference ranges per CAP guidelines and will not b e flagged as normal or abnormal. Absolute concentrations of circulating W BC are the preferable method of reporting and will continue to be evalua deidre against established reference ranges. Globulin 3.2 0.9 - 5 g/dL APS DAVITA [facility] A/G Ratio 1.1 1 - 2.5 Calc APS DAVITA [facility] Specimen Anatomical Collection Method Collection Time Receive d Time (Source) Location / / Volume Laterality 11/17/2021 4:00 AM 2 CDT 12:55 PM CDT Westley Vidal MD LAB [id number] NSOLICITED RESULTS Performing Organization Address City/State/ZIP Code Phon e Number APS DAVITA [facility] Hepatitis B Surface Antigen (11/14/2021 4:00 AM CDT) P athologist Signature Hep B Surface NEG -NEG APS DAVITA Antigen [facility] Comment: This test utilizes Biotin (Vitamin B7) a s one of it's reagents. Testing may be interfered with in patients consuming Bi otin supplements. Please factor this when reviewing results. Specimen Anatomical Collection Method Collection Time Receive d Time (Source) Location / / Volume Laterality 11/14/2021 4:00 AM 2 6:41 CDT PM CDT Darrel Delgadillo MD LAB BLOOD ORDERABLES Performing Organization Address City/State/ZIP Code Phon e Number APS DAVITA [facility] (ABNORMAL) Ferritin (11/14/2021 4:00 AM CDT) P athologist Signature Ferritin 1,455 (H) 10 - 291 APS DAVITA ng/mL [facility] Specimen Anatomical Collection Method Collection Time Receive d Time (Source) Location / / Volume Laterality 11/14/2021 4:00 AM 2 6:41 CDT PM CDT Darrel Delgadillo MD LAB BLOOD ORDERABLES Performing Organization Address City/[facility]/ZIP Code Phon e Number APS DAVITA [facility] (ABNORMAL) Creatinine, serum (11/14/2021 4:00 AM CDT) P athologist Signature Creatinine 6.30 (H) 0.50 - 1.10 APS DAVITA mg/dL [facility] Specimen Anatomical Collection Method Collection Time Receive d Time (Source) Location / / Volume Laterality 11/14/2021 4:00 AM 2 6:41 CDT PM CDT Authorizing Provider Result Nena Delgadillo MD LAB BLOOD ORDERABLES Performing Organization Address City/[facility]/ZIP Code Phon e Number APS DAVITA [facility] (ABNORMAL) Iron Panel (Fe, TIBC, TSAT) (11/14/2021 4:00 AM CDT) P athologist Signature TIBC 186 (L) 250 - 425 APS DAVITA ug/dL [facility] Iron Saturation 42 16 - 46 % APS DAVITA (TSat) [facility] Iron 79 50 - 170 APS DAVITA ug/dL [facility] UIBC 107 80 - 375 APS DAVITA ug/dL [facility] Specimen Anatomical Collection Method Collection Time Receive d Time (Source) Location / / Volume Laterality 11/14/2021 4:00 AM 2 6:41 CDT PM CDT Authorizing Provider Result Nena Delgadillo MD LAB BLOOD ORDERABLES Performing Organization Address City/[facility]/ZIP Code Phon e Number APS DAVITA [facility] (ABNORMAL) MONTH COMPOSITE (11/14/2021 4:00 AM CDT) Patholo gist Method Time Signature Potassium 4.7 3.5 - 5.5 APS DAVITA mEq/L [facility] Chloride 111 (H) 99 - 109 APS DAVITA mEq/L [facility] Bicarbonate 16 (L) 20 - 31 APS DAVITA (CO2) mEq/L [facility] Calcium 8.2 (L) 8.7 - APS DAVITA 10.4 [facility] mg/dL Phosphorus, 6.9 (H) 2.4 - 5.1 APS DAVITA Serum mg/dL [facility] CA/PHOS PRODUCT 56.6 (H) 21 - 53 APS DAVITA Calc [facility] Corrected 8.6 (L) 8.7 - APS DAVITA Calcium 10.4 [facility] mg/dL CA*PO4 CORRCTD 59.3 (H) 21 - 53 APS DAVITA Calc [facility] Protein, Total 6.9 5.7 - 8.2 APS DAVITA g/dL [facility] Albumin 3.5 3.4 - 4.8 APS DAVITA g/dL [facility] Globulin 3.4 0.9 - 5 APS DAVITA g/dL [facility] A/G Ratio 1.0 1 - 2.5 APS DAVITA Calc [facility] AST (SGOT) 18 0 - 33 APS DAVITA U/L [facility] LDH 260 (H) 120 - 246 APS DAVITA U/L [facility] Alkaline 122 (H) 46 - 116 APS DAVITA Phosphatase U/L [facility] WBC 6.2 4.5 - APS DAVITA 11.0 x [facility] 10'3 cells/uL RBC 2.19 (L) 4.20 - APS DAVITA 5.40 x [facility] 10'6 cells/uL Hgb 7.8 (L) 12.0 - APS DAVITA 16.0 g/dL [facility] Hematocrit 24.6 (L) 37.0 - APS DAVITA 47.0 % [facility] Hemoglobin x 3 23.4 (L) 37.0 - APS DAVITA 47.0 % [facility] MCV 112.1 (H) 80.0 - APS DAVITA 100.0 fL [facility] Comment: NOTE: MCV may be falsely elevat ed in aged samples (approximately 72 hours). MCH 35.4 (H) 27.0 - 31.0 pg APS DAVITA [facility] N MCHC 31.6 (L) 32.0 - 36.0 g/dL APS DAVITA [place] MMN RDW 19.3 (H) 11.0 - 15.0 % APS DAVITA [facility] Platelets 140 (L) 150 - 400 x 10'3 cells/uL APS DAVITA [facility] Neutrophils % Auto 56.5 % APS DAVITA [facility] Lymphocytes Manual 26.8 % APS DAVITA [facility] Monocytes Manual 6.2 % APS DAVITA [place] MMN Eosinophil % 9.8 % APS DAVITA [facility] Basophils Relative 0.6 % APS DAVITA [facility] Neutrophils Absolute 3,491.70 2,000 - 8,800 Cell/uL APS DAVITA [facility] Lymphocytes Absolute 1,656.24 1,100 - 4,800 Cell/uL APS DAVITA [facility] Monocytes Absolute 383.16 0 - 1,100 Cell/uL APS DAVITA [facility] Eosinophils Absolute 605.64 0 - 700 Cell/uL APS DAVITA [facility] Basophils Absolute 37.08 0 - 400 Cell/uL APS D AVITA [facility] Comment: NOTE:Diff percentage results will contin ue to be reported but without reference ranges per CAP guidelines and will not b e flagged as normal or abnormal. Absolute concentrations of circulating W BC are the preferable method of reporting and will continue to be evalua deidre against established reference ranges. Specimen Anatomical Collection Method Collection Time Receive d Time (Source) Location / / Volume Laterality 11/14/2021 4:00 AM 2 6:41 CDT PM CDT Darrel Delgadillo MD LAB [id number] NSOLICITED RESULTS Performing Organization Address City/State/ZIP Code Phon e Number APS DAVITA [facility] (ABNORMAL) Hemoglobin (11/10/2021 4:00 AM CDT) P athologist Signature Hgb 7.6 (L) 12.0 - 16.0 APS DAVITA g/dL [facility] Specimen Anatomical Collection Method Collection Time Receive d Time (Source) Location / / Volume Laterality 11/10/2021 4:00 AM 2 7:54 CDT AM CDT Westley Vidal MD LAB BLOOD ORDERABLES Performing Organization Address City/State/ZIP Code Phon e Number APS DAVITA [facility] (ABNORMAL) HCT CALC HGBX3 (11/10/2021 4:00 AM CDT) Analysis Performed At Patho logist Time Signature Hemoglobin x 3 22.8 (L) 37.0 - APS DAVITA 47.0 % [facility] Specimen Anatomical Collection Method Collection Time Receive d Time (Source) Location / / Volume Laterality 11/10/2021 4:00 AM 2 7:54 CDT AM CDT Westley Vidal MD LAB [id number] NSOLICITED RESULTS Performing Organization Address City/State/ZIP Code Phon e Number APS DAVITA [facility] (ABNORMAL) KT/V DAUGIRDAS (11/07/2021 4:00 AM CDT) P athologist Signature BUN 29 (H) 9 - 23 APS DAVITA mg/dL [facility] BUN Post 6 (L) 9 - 23 APS DAVITA Dialysis mg/dL [facility] URR% 79 65 - 100 % APS DAVITA [facility] Specimen Anatomical Collection Method Collection Time Receive d Time (Source) Location / / Volume Laterality 11/07/2021 4:00 AM 2 CDT 11:51 AM CDT Westley Vidal MD LAB [id number] NSOLICITED RESULTS Performing Organization Address City/[facility]/ZIP Code Phon e Number APS DAVITA [facility] Hepatitis B Surface Antigen (11/05/2021 4:00 AM CDT) athologist Signature Hep B Surface NEG -NEG APS DAVITA Antigen [facility] Comment: This test utilizes Biotin (Vitamin B7) a s one of it's reagents. Testing may be interfered with in patients consuming Bi otin supplements. Please factor this when reviewing results. Specimen Anatomical Collection Method Collection Time Receive d Time (Source) Location / / Volume Laterality 11/05/2021 4:00 AM 2 8:46 CDT AM CDT Westley Vidal MD LAB BLOOD ORDERABLES Performing Organization Address City/State/ZIP Code Phon e Number APS DAVITA [facility] (ABNORMAL) PTH, Intact (11/05/2021 4:00 AM CDT) athologist Signature PTH 16 (L) 18 - 80 APS DAVITA pg/mL [facility] Comment: This test utilizes Biotin (Vitamin B7) a s one of it's reagents. Testing may be interfered with in patients consuming Bi otin supplements. Please factor this when reviewing results. METHODOLOGY: SIE MENS Reference range changed as of May 03, 2017. Specimen Anatomical Collection Method Collection Time Receive d Time (Source) Location / / Volume Laterality 11/05/2021 4:00 AM 2 8:46 CDT AM CDT Westley Vidal MD LAB BLOOD ORDERABLES Performing Organization Address [facility]/ZIP Code Phon e Number APS DAVITA [facility] (ABNORMAL) Ferritin (11/05/2021 4:00 AM CDT) P athologist Signature Ferritin 2,458 (H) 10 - 291 APS DAVITA ng/mL [facility] Comment: RECHECKED AND VERIFIED BY DILUT ION Specimen Anatomical Collection Method Collection Time Receive d Time (Source) Location / / Volume Laterality 11/05/2021 4:00 AM 2 8:46 CDT AM CDT Westley Vidal MD LAB BLOOD ORDERABLES Performing Organization Address [facility] Code Phon e Number APS DAVITA [facility] ALT (11/05/2021 4:00 AM CDT) P athologist Signature ALT (SGPT) TNP U/L APS DAVITA [facility] Comment: Recollect - Unspun specimen Specimen Anatomical Collection Method Collection Time Receive d Time (Source) Location / / Volume Laterality 11/05/2021 4:00 AM 2 8:46 CDT AM CDT Westley Vidal MD LAB BLOOD ORDERABLES Performing Organization Address [facility] Code Phon e Number APS DAVITA [facility] Glucose, random (11/05/2021 4:00 AM CDT) P athologist Signature Glucose TNP mg/dL APS DAVITA [facility] Comment: Recollect - Unspun specimen Specimen Anatomical Collection Method Collection Time Receive d Time (Source) Location / / Volume Laterality 11/05/2021 4:00 AM 2 8:46 CDT AM CDT Westley Vidal MD LAB BLOOD ORDERABLES Performing Organization Address [facility]/ZIP Code Phon e Number APS DAVITA [facility] Creatinine, serum (11/05/2021 4:00 AM CDT) P athologist Signature Creatinine TNP mg/dL APS YOSELIN [facility] Comment: Recollect - Unspun specimen Specimen Anatomical Collection Method Collection Time Receive d Time (Source) Location / / Volume Laterality 11/05/2021 4:00 AM 2 8:46 CDT AM CDT Westley Vidal MD LAB BLOOD ORDERABLES Performing Organization Address City/State/ZIP Code Phon e Number SUZANNE MCINTOSHMMN (ABNORMAL) KT/V DAUGIRDAS (11/05/2021 4:00 AM CDT) P athologist Signature BUN TNP mg/dL APS YOSELIN [facility] Comment: Recollect - Unspun specimen BUN Post Dialysis 6 (L) 9 - 23 mg/dL APS SLICK A [facility] URR% See Below 65 - 100 % APS DAVITA [facility] Comment: Unable to Calculate Specimen Anatomical Collection Method Collection Time Receive d Time (Source) Location / / Volume Laterality 11/05/2021 4:00 AM 2 8:46 CDT AM CDT Westley Vidal MD LAB [id number] NSOLICITED RESULTS Performing Organization Address City/State/ZIP Code Phon e Number SUZANNE MCINTOSHMMN CARMEN/PHOS W/RATI (11/05/2021 4:00 AM CDT) Specimen Anatomical Collection Method Collection Time Receive d Time (Source) Location / / Volume Laterality 11/05/2021 4:00 AM 2 8:46 CDT AM CDT Westley Vidal MD LAB [id number] NSOLICITED RESULTS Performing Organization Address City/State/ZIP Code Phon e Number SUZANNE MCINTOSHMMN Iron Panel (Fe, TIBC, TSAT) (11/05/2021 4:00 AM CDT) Specimen Anatomical Collection Method Collection Time Receive d Time (Source) Location / / Volume Laterality 11/05/2021 4:00 AM 2 8:46 CDT AM CDT Westley Vidal MD LAB BLOOD ORDERABLES Performing Organization Address City/State/ZIP Code Phon e Number SUZANNE MCINTOSHMMN (ABNORMAL) MONTHLY HD W/O CA/PH (11/05/2021 4:00 AM CDT) [facility] gist Method Time Signature WBC 7.4 4.5 - 11.0 APS DAVITA x 10'3 [facility] cells/uL RBC 2.54 (L) 4.20 - APS DAVITA 5.40 x [facility] 10'6 cells/uL Hgb 8.7 (L) 12.0 - APS DAVITA 16.0 g/dL [facility] Hematocrit 26.6 (L) 37.0 - APS DAVITA 47.0 % [facility] Hemoglobin x 3 26.1 (L) 37.0 - APS DAVITA 47.0 % [facility] MCV 105.0 (H) 80.0 - APS DAVITA 100.0 fL [facility] Comment: NOTE: MCV may be falsely elevat ed in aged samples (approximately 72 hours). MCH 34.3 (H) 27.0 - 31.0 pg APS DAVITA [facility] N MCHC 32.6 32.0 - 36.0 g/dL APS DAVITA [place] MMN RDW 15.5 (H) 11.0 - 15.0 % APS DAVITA [facility] Platelets 184 150 - 400 x 10'3 cells/uL APS DAVITA [facility] Neutrophils % Auto 58.4 % APS DAVITA [facility] Lymphocytes Manual 29.3 % APS DAVITA [facility] Monocytes Manual 5.9 % APS DAVITA KS MMN Eosinophil % 5.8 % APS DAVITA [facility] Basophils Relative 0.6 % APS DAVITA [facility] Neutrophils Absolute 4,298.24 2,000 - 8,800 Cell/uL APS DAVITA [facility] Lymphocytes Absolute 2,156.48 1,100 - 4,800 Cell/uL APS DAVITA [facility] Monocytes Absolute 434.24 0 - 1,100 Cell/uL APS DAVITA [facility] Eosinophils Absolute 426.88 0 - 700 Cell/uL APS DAVITA [facility] Basophils Absolute 44.16 0 - 400 Cell/uL APS D AVITA [facility] Comment: NOTE:Diff percentage results will contin ue to be reported but without reference ranges per CAP guidelines and will not b e flagged as normal or abnormal. Absolute concentrations of circulating W BC are the preferable method of reporting and will continue to be evalua deidre against established reference ranges. Specimen Anatomical Collection Method Collection Time Receive d Time (Source) Location / / Volume Laterality 11/05/2021 4:00 AM 2 8:46 CDT AM CDT Westley Vidal MD LAB [id number] NSOLICITED RESULTS Performing Organization Address City/State/ZIP Code Phon e Number APS DAVITA [facility] (ABNORMAL) HCT CALC HGBX3 (10/17/2021 4:00 AM CDT) Analysis Performed At Patho logist Time Signature Hemoglobin x 3 33.0 (L) 37.0 - APS DAVITA 47.0 % [facility] Specimen Anatomical Collection Method Collection Time Receive d Time (Source) Location / / Volume Laterality 10/17/2021 4:00 AM 2 2:46 CDT PM CDT Westley Vidal MD LAB [id number] NSOLICITED RESULTS Performing Organization Address City/[facility]/ZIP Code Phon e Number APS DAVITA [facility] (ABNORMAL) Hemoglobin (10/17/2021 4:00 AM CDT) P athologist Signature Hgb 11.0 (L) 12.0 - 16.0 APS DAVITA g/dL [facility] Specimen Anatomical Collection Method Collection Time Receive d Time (Source) Location / / Volume Laterality 10/17/2021 4:00 AM 2 2:46 CDT PM CDT Westley Vidal MD LAB BLOOD ORDERABLES Performing Organization Address City/State/ZIP Code Phon e Number APS DAVITA [facility] (ABNORMAL) HCT CALC HGBX3 (10/06/2021 4:00 AM CDT) Analysis Performed At Patho logist Time Signature Hemoglobin x 3 29.7 (L) 37.0 - APS DAVITA 47.0 % [facility] Specimen Anatomical Collection Method Collection Time Receive d Time (Source) Location / / Volume Laterality 10/06/2021 4:00 AM 2 CDT 12:38 PM CDT Westley Vidal MD LAB [id number] NSOLICITED RESULTS Performing Organization Address City/State/ZIP Code Phon e Number APS DAVITA [facility] (ABNORMAL) Hemoglobin (10/06/2021 4:00 AM CDT) athologist Signature Hgb 9.9 (L) 12.0 - 16.0 APS DAVITA g/dL [facility] Specimen Anatomical Collection Method Collection Time Receive d Time (Source) Location / / Volume Laterality 10/06/2021 4:00 AM 2 CDT 12:38 PM CDT Westley Vidal MD LAB BLOOD ORDERABLES Performing Organization Address City/State/ZIP Code Phon e Number APS DAVITA [facility] (ABNORMAL) KT/V DAUGIRDAS (10/06/2021 4:00 AM CDT) athologist Signature BUN 57 (H) 9 - 23 APS DAVITA mg/dL [facility] BUN Post 13 9 - 23 APS DAVITA Dialysis mg/dL [facility] URR% 77 65 - 100 % APS DAVITA [facility] Specimen Anatomical Collection Method Collection Time Receive d Time (Source) Location / / Volume Laterality 10/06/2021 4:00 AM 2 CDT 12:38 PM CDT Westley Vidal MD LAB [id number] NSOLICITED RESULTS Performing Organization Address City/State/ZIP Code Phon e Number APS DAVITA [facility] (ABNORMAL) CARMEN/PHOS W/RATI (10/06/2021 4:00 AM CDT) athologist Signature Calcium 9.2 8.7 - 10.4 APS DAVITA mg/dL [facility] Phosphorus, 6.7 (H) 2.4 - 5.1 APS DAVITA Serum mg/dL [facility] CA/PHOS 61.6 (H) 21 - 53 APS DAVITA PRODUCT Calc [facility] Corrected 9.4 8.7 - 10.4 APS DAVITA Calcium mg/dL [facility] CA*PO4 CORRCTD 63.0 (H) 21 - 53 APS DAVITA Calc [facility] Specimen Anatomical Collection Method Collection Time Receive d Time (Source) Location / / Volume Laterality 10/06/2021 4:00 AM 2 CDT 12:38 PM CDT Westley Vidal MD LAB [id number] NSOLICITED RESULTS Performing Organization Address City/State/ZIP Code Phon e Number APS DAVITA [facility] documented in this encounter Visit Diagnoses Not on filedocumented in this encounter
--- OUTSIDE RECORDS SUMMARY | 2022-04-02 21:37 | XMS_ITS | Encounter Summary ---
:1950 Author Organization [facility] Address [address] [place] [address] Care Team Providers Name Role Phone Unavailable Primary Care Provider Unavailable Encounter Details Date Type Department Care Team Description 08/06/2021 Treatment [facility] Westley Meeks MD [address] [place] [address] [place] [address] [place], [place] [phone] Social History Tobacco Use Types Packs/Day Years Used Date Smoking Tobacco: Never Assessed Sex Assigned at Date Recorded Not on file documented as of this encounter Miscellaneous Notes Dialysis Note - Westley Vidal MD - 08/06/2021 4:41 PM CDT Date: Aug 06, 2021 Patient Name: Charlotte Ramos : 1950 Chart #: [id number] Sex: F Patient Type: ESRD Modality: Hemodialysis Primary Cause of Renal Failure: E11.9 - Type 2 diabetes mellitus Strip Deburrer: Westley Vidal MD Location: [place] [address] Schedule: M-W- 2nd Shift Initial Access Initial Modality: Hemodialysis Initial Access used on first patient dialysis: Catheter - No Reason Selected Westley Vidal MD [ Signed And locked electronically On 08/06/2021 at 03:41:07 PM ] Transcribed: Westley Vidal MD ( 08/06/2021 ) Dialysis Note - Westley Vidal MD - 08/06/2021 4:41 PM CDT Date: Aug 06, 2021 Patient Name: Charlotte Ramos : 1950 Chart #: [id number] Sex: F Patient Type: ESRD Modality: Hemodialysis Primary Cause of Renal Failure: E11.9 - Type 2 diabetes mellitus Strip Deburrer: Westley Vidal MD Location: [facility] [phone] Schedule: 2nd Shift Initial Access Initial Modality: Hemodialysis Initial Access used on first patient dialysis: Catheter - No Reason Selected Westley Vidal MD [ Signed And locked electronically On 08/06/2021 at 03:41:23 PM ] Transcribed: Westley Vidal MD ( 08/06/2021 ) Dialysis Note - Westley Vidal MD - 08/06/2021 4:40 PM CDT Date: Aug 06, 2021 Patient Name: Charlotte Ramos : 1950 Chart #: [id number] Sex: F Patient Type: ESRD Modality: Hemodialysis Primary Cause of Renal Failure: E11.9 - Type 2 diabetes mellitus Strip Deburrer: Westley Vidal MD Location: [facility] [phone] Schedule: 2nd Shift Initial Access Initial Modality: Hemodialysis Initial Access used on first patient dialysis: Catheter - No Reason Selected Westley Vidal MD [ Signed And locked electronically On 08/06/2021 at 03:40:51 PM ] Transcribed: Westley Vidal MD ( 08/06/2021 ) Dialysis Note - Westley Vidal MD - 08/06/2021 3:46 PM CDT Date: Aug 06, 2021 Patient Name: Charlotte Ramos : 1950 Chart #: [id number] Sex: F This patient was personally seen for a complete visit as part of routine monthly dialysis care. A review of the dialysis treatment, blood pressure, estimated dry weight and recent lab values was made. These were discussed with the patient and staff as necessary. SAW CLEANER: Westley Vidal MD LOCATION: [facility] [phone] SCHEDULE: - 2nd Shift EDW: kg. DIALYZER: HD DURATION: NEEDLE SIZE: ANTICOAG: BATH: QB: ml/min QD: ml/min Subjective Pt new to dialysis. We have been using permcath as she had inadequate vessels to place fistula Also has a graft which is now over a month old. Feeling well, but has chronic sob. Denies any chest pains.Eating well. Denies edema. Continues to see hematology for Multiple Myeloma Advanced Practitioner Subjective Review of Systems Problem List Description ICD9 Code ICD10 Code Type 2 diabetes mellitus 250.00 E11.9 End stage renal disease 585.6 N18.6 Dependence on renal dialysis V45.11 Z99.2 Exam Respiratory - Clear to auscultation bilaterally. Cardiovascular - Regular rate. Regular rhythm. No murmur heard. Edema - No leg edema. Medication List No medication list is available. Allergy List No allergy list is available. Medications reviewed and no changes were made. Treatment and Adequacy Assessment BUN mg/dL 66 (07/16/21) 48 (07/04/21) CREATININE (MG/DL) IN SER/PLAS mg/dL 5.03 (07/21/21) 4.69 (07/04/21) URR% % 77 (07/16/21) 69 (07/04/21) Dialysis is adequate. Achieves prescribed time - Yes Achieves prescribed frequency - Yes Missed treatments in past 30 days - 0 Vascular Access Assessment Type of access: permcath but we are using one needle in graft Surgeon - con Landry Staff and patient report access is working poorly Hopefully will be able to transition to the graft soon. We can now only use the percath for return. Anemia Assessment WBC (BLOOD) x 103 cells/uL 8.6 (07/21/21) 5.6 (07/04/21) HGB g/dL 8.1 (08/04/21) 8.3 (07/21/21) 7.4 (07/16/21) 8.1 (07/04/21) PLATELETS x 103 cells/uL 203 (07/21/21) 132 (07/04/21) IRON SATURATION % 32 (07/21/21) 42 (07/04/21) FERRITIN ng/mL 692 (07/21/21) 1114 (07/04/21) Hemoglobin is below goal. Iron Saturation is at goal. Ferritin is at goal. Will adjust LINA and intravenous iron per protocol. Nutritional and Metabolic Assessment ALBUMIN (G/DL) g/dL 3.7 (07/21/21) 3.8 (07/04/21) POTASSIUM (MMOL/L) IN SER/PLAS mEq/L 4.5 (07/21/21) 4.4 (07/04/21) BICARBONATE (CO2) mEq/L 19 (07/21/21) 28 (07/04/21) Albumin is below goal. Potassium is at goal. Encourage low potassium diet. Bicarbonate is below goal. Bone and Mineral Metabolism Assessment CALCIUM mg/dL 8.2 (08/04/21) 8.3 (07/16/21) 8.3 (07/04/21) CORRECTED CALCIUM mg/dL 8.4 (08/04/21) 8.5 (07/16/21) 8.5 (07/04/21) PHOSPHORUS mg/dL 5.6 (08/04/21) 5.5 (07/16/21) 5.0 (07/04/21) CA*PO4 CORRCTD Calc 47.0 (08/04/21) 46.8 (07/16/21) 42.5 (07/04/21) IPTH pg/mL 385 (08/04/21) 121 (07/04/21) Corrected Calcium is at goal. Phosphorous is above goal. Ca X P product is at goal. Intact PTH is at goal. Cardiovascular Assessment acceptable. Intradialytic weight gains are appropriate. Estimated dry weight is appropriate. Transplant Status: Patient is not a candidate. Not transplant candidate due to obesity and her myeloma. Resuscitation Status New initiate. So far tolerating dialysis ok. Access is a problem but I am hopeful her graft will work. Vascular surgery does not believe there are any options for a fistula. Myltiple myeloma being monitored by hematology not currently receiving active treatment. Reviewed medications with her today. No changes planned. Westley Vidal MD [ Signed And locked electronically On 08/06/2021 at 03:53:52 PM ] Transcribed: Westley Vidal ( 08/06/2021 ) documented in this encounter Plan of Treatment Not on filedocumented as of this encounter Visit Diagnoses Not on filedocumented in this encounter
--- OUTSIDE RECORDS SUMMARY | 2022-04-02 21:37 | XMS_ITS | Encounter Summary ---
:1950 Author Organization [facility] Address [address] [place] [address] [address] [place] [address] Care Team Providers Name Role Phone Unavailable Primary Care Provider Unavailable Encounter Details Date Type Department Care Team Description 08/26/2021 Documentation Only [facility] Westley Meeks MD [address] [facility] [address] [place] [address] [facility] [address] [place] [address] Social History Tobacco Use Types Packs/Day Years Used Date Smoking Tobacco: Never Assessed Sex Assigned at Date Recorded Not on file documented as of this encounter Plan of Treatment Not on filedocumented as of this encounter Visit Diagnoses Not on filedocumented in this encounter
--- OUTSIDE RECORDS SUMMARY | 2022-04-02 21:37 | XMS_ITS | Continuity of Care Document ---
:1950 Author Organization [facility] Care Coordination Address Unavailable , Encounter [id number] Date(s): 10/15/21 - 11/25/21 [facility] Coordination Medications acetaminophen 500 mg oral tablet = 2 tab(s) ( 1,000 mg ), Oral, q6 hrs, 0 Refill(s), Type: Maintenance Start Date: 08/21/21 Status: OrderedAlbuterol (Eqv-ProAir HFA) 90 mcg/inh inhalation aerosol 2 puff(s), Inhale, q6 hrs, 0 Refill(s), Type: Maintenance Start Date: 08/21/21 Status: OrderedamLODIPine 5 mg oral tablet = 1 tab(s) ( 5 mg ), Oral, bid, 0 Refill(s), Type: Maintenance Start Date: 08/21/21 Status: Orderedaspirin 81 mg oral capsule = 1 cap(s) ( 81 mg ), Oral, daily, 0 Refill(s), Type: Maintenance Start Date: 08/21/21 Status: Orderedcalcitriol 0.5 mcg oral capsule = 1 cap(s) ( 0.5 mcg ), Oral, mwf, 0 Refill(s), Type: Maintenance Start Date: 08/21/21 Status: Orderedcalcium acetate 667 mg oral capsule = 2 cap(s) ( 1,334 mg ), Oral, tidwm, 0 Refill(s), Type: Maintenance Start Date: 08/21/21 Status: OrderedClaritin-D 12 Hour 1 tab(s), Oral, q48 hrs, 0 Refill(s), Type: Maintenance Start Date: 08/21/21 Status: OrderedCoreg 25 mg oral tablet = 1 tab(s) ( 25 mg ), Oral, bid, 0 Refill(s), Type: Maintenance Start Date: 08/21/21 Status: Orderedcranberry oral capsule 1 tablet, daily, 0 Refill(s), Type: Maintenance Start Date: 08/21/21 Status: Ordereddocusate 1-2 tabs, As Directed, 0 Refill(s), Type: Maintenance Start Date: 08/21/21 Status: Orderedgabapentin 300 mg oral capsule = 2 cap(s) ( 600 mg ), Oral, hs, 0 Refill(s), Type: Maintenance Start Date: 08/21/21 Status: Orderedinsulin glargine ( 60 units ), Subcutaneous, once, Instructions: once in am, 0 Refill(s), Type: Maintenance Start Date: 08/21/21 Status: Orderedisosorbide dinitrate 30 mg oral tablet = 2 tab(s) ( 60 mg ), Oral, daily, 0 Refill(s), Type: Maintenance Start Date: 08/21/21 Status: OrderedLasix 40 mg oral tablet = 1.5 tab(s) ( 60 mg ), Oral, daily, 0 Refill(s), Type: Maintenance Start Date: 08/21/21 Status: OrderedLipitor 40 mg oral tablet = 1 tab(s) ( 40 mg ), Oral, daily, 0 Refill(s), Type: Maintenance Start Date: 08/21/21 Status: Orderedlosartan 25 mg oral tablet = 1 tab(s) ( 25 mg ), Oral, hs, 0 Refill(s), Type: Maintenance Start Date: 08/21/21 Status: Orderedmeclizine 12.5 mg oral tablet = 2 tab(s) ( 25 mg ), Oral, As Directed, 0 Refill(s), Type: Maintenance Start Date: 08/21/21 Status: OrderedNephrocaps oral capsule 1 cap(s), Oral, daily, 0 Refill(s), Type: Maintenance Start Date: 08/21/21 Status: Orderednitroglycerin 0.4 mg sublingual tablet See Instructions, Instructions: 1 tab(s) SL q5 min, PRN: for chest pain, 0 Refill(s), Type: Maintenance Start Date: 08/21/21 Status: OrderedNovoLOG FlexPen Subcutaneous, tidac, 0 Refill(s), Type: Maintenance Start Date: 08/21/21 Status: OrderedOmega-3 Fish Oil ( 1,000 mg ), Oral, daily, 0 Refill(s), Type: Maintenance Start Date: 08/21/21 Status: Orderedoxybutynin 15 mg/24 hr oral tablet, extended release = 1 tab(s) ( 15 mg ), Oral, daily, 0 Refill(s), Type: Maintenance Start Date: 08/21/21 Status: OrderedoxyCODONE 5 mg oral capsule See Instructions, Instructions: 1 cap(s) Oral q6 hrs prn, 0 Refill(s), Type: Maintenance Start Date: 08/21/21 Status: OrderedPlavix ( 75 mg ), Oral, daily, 0 Refill(s), Type: Maintenance Start Date: 08/21/21 Status: OrderedPreserVision AREDS 1 tablet, bid, 0 Refill(s), Type: Maintenance Start Date: 08/21/21 Status: Orderedsenna 8.6 mg oral tablet = 2 tab(s) ( 17.2 mg ), Oral, As Directed, PRN: for constipation, # 20 tab(s), 0 Refill(s), Type: Maintenance Start Date: 08/21/21 Status: Orderedsertraline 50 mg oral tablet = 1 tab(s) ( 50 mg ), Oral, daily, 0 Refill(s), Type: Maintenance Start Date: 08/21/21 Status: Orderedsodium bicarbonate 650 mg oral tablet = 1 tab(s) ( 650 mg ), Oral, qid, 0 Refill(s), Type: Maintenance Start Date: 08/21/21 Status: OrderedVitamin C 500 mg oral tablet = 1 tab(s) ( 500 mg ), Oral, daily, 0 Refill(s), Type: Maintenance Start Date: 08/21/21 Status: OrderedZofran 4 mg oral tablet = 1 tab(s) ( 4 mg ), Oral, As Directed, 0 Refill(s), Type: Maintenance Start Date: 08/21/21 Status: Ordered Problem List Condition Effective Dates Status Health Status Informant Anemia(Confirmed) Active CAD - Coronary artery Active disease(Confirmed) Diabetes mellitus type II(Confirmed) Active End stage renal failure on Active dialysis(Confirmed) GERD - Gastro-esophageal reflux Active disease(Confirmed) Hyperlipidemia(Confirmed) Active Hypertension(Confirmed) Active Major depression(Confirmed) Active Multiple myeloma(Confirmed) Active NSTEMI - Non-ST segment elevation Active TX(Confirmed) Obesity(Confirmed) Active TANYA - Obstructive sleep Active apnea(Confirmed) Results Most recent to oldest 1 2 3 [Reference Range]: Hgb TR 7.8 g/dL (10/31/21 2:00 PM) LDL TR 52 mg/dL (10/25/21 2:04 PM) Creatinine TR 7.64 mg/dL 8.07 mg/dL (10/30/21 2:01 PM) (10/14/21 11:22 AM) eGFR TR 5 mL/min 5 mL/min (10/30/21 2:01 PM) (10/14/21 11:22 AM) Albumin Level TR 3.0 g/dL (10/29/21 2:02 PM) Potassium Level TR 4.5 mEq/L 5.1 mEq/L 4.4 mEq/L (10/31/21 2:00 PM) (10/30/21 2:01 PM) (10/14/21 11:2 2 AM) CO2 TR 22 mEq/L 18 mEq/L (10/30/21 2:01 PM) (10/14/21 11:22 AM) Calcium TR 9.4 mEq/dL 9.8 mEq/dL (10/30/21 2:01 PM) (10/14/21 11:22 AM) Phosphorus Level TR 5.6 mg/dL (10/29/21 2:02 PM)
--- OUTSIDE RECORDS SUMMARY | 2022-04-02 21:37 | XMS_ITS | Encounter Summary ---
:1950 Author Organization [facility] Address [address] [place] [address] Care Team Providers Name Role Phone Unavailable Primary Care Provider Unavailable Encounter Details Date Type Department Care Team Description 08/20/2021 Treatment [facility] f Westley Meeks MD [address] [place] [address] [place] [address] [place], [place] [phone] Social History Tobacco Use Types Packs/Day Years Used Date Smoking Tobacco: Never Assessed Sex Assigned at Date Recorded Not on file documented as of this encounter Miscellaneous Notes Dialysis Note - Westley Vidal MD - 08/20/2021 3:10 PM CDT Date: Aug 20, 2021 Patient Name: Charlotte Ramos : 1950 Chart #: [id number] Sex: F This patient was personally seen for a basic visit as part of routine weekly dialysis care. A reviewof the dialysis treatment, blood pressure, estimated dry weight and recent lab values was made. These were discussed with the patient and staff as necessary. BUDGET SPECIALIST: Westley Vidal MD LOCATION: [place] [phone] SCHEDULE: -- 2nd Shift ACCESS: EDW: kg. DIALYZER: HD DURATION: NEEDLE SIZE: [...] her surgeon tomorrow. Still following with hematology. Advanced Practitioner Subjective: Problem List Description ICD9 Code ICD10 Code Type 2 diabetes mellitus 250.00 E11.9 End stage renal disease 585.6 N18.6 Dependence on renal dialysis V45.11 Z99.2 Respiratory - Clear to auscultation bilaterally. Cardiovascular Regular rate. Regular rhythm. Edema - No leg edema. Access - looks good. left upper arm. developing nicely. Medication List No medication list is available. Allergy List No allergy list is available. Medications reviewed and no changes were made. BUN mg/dL 72 (08/18/21) 61 (08/06/21) 66 (07/16/21) 48 (07/04/21) CREATININE (MG/DL) IN SER/PLAS mg/dL 6.16 (08/18/21) 5.03 (07/21/21) 4.69 (07/04/21) URR% % See Below (08/18/21) 69 (08/06/21) 77 (07/16/21) 69 (07/04/21) WBC (BLOOD) x 103 cells/uL 6.8 (08/18/21) 8.6 (07/21/21) 5.6 (07/04/21) HGB g/dL 8.0 (08/18/21) 7.6 (08/11/21) 8.1 (08/04/21) 8.3 (07/21/21) 7.4 (07/16/21) PLATELETS x 103 cells/uL 175 (08/18/21) 203 (07/21/21) 132 (07/04/21) IRON SATURATION % 23 (08/18/21) 32 (07/21/21) 42 (07/04/21) FERRITIN ng/mL 742 (08/18/21) 692 (07/21/21) 1114 (07/04/21) ALBUMIN (G/DL) g/dL 3.8 (08/18/21) 3.7 (07/21/21) 3.8 (07/04/21) POTASSIUM (MMOL/L) IN SER/PLAS mEq/L 4.9 (08/18/21) 4.5 (07/21/21) 4.4 (07/04/21) BICARBONATE (CO2) mEq/L 22 (08/18/21) 19 (07/21/21) 28 (07/04/21) CALCIUM mg/dL 8.2 (08/04/21) 8.3 (07/16/21) 8.3 (07/04/21) CORRECTED CALCIUM mg/dL 8.4 (08/04/21) 8.5 (07/16/21) 8.5 (07/04/21) PHOSPHORUS mg/dL 8.0 (08/18/21) 5.6 (08/04/21) 5.5 (07/16/21) 5.0 (07/04/21) CA*PO4 CORRCTD Calc 47.0 (08/04/21) 46.8 (07/16/21) 42.5 (07/04/21) IPTH pg/mL 385 (08/04/21) 121 (07/04/21) CALCIUM mg/dL 8.2 (08/04/21) 8.3 (07/16/21) 8.3 (07/04/21) CA/PHOS PRODUCT Calc 45.9 (08/04/21) 45.7 (07/16/21) 41.5 (07/04/21) CORRECTED CALCIUM mg/dL 8.4 (08/04/21) 8.5 (07/16/21) 8.5 (07/04/21) PHOSPHORUS mg/dL 8.0 (08/18/21) 5.6 (08/04/21) 5.5 (07/16/21) 5.0 (07/04/21) IPTH pg/mL 385 (08/04/21) 121 (07/04/21) Vascular Access Assessment: Type of access: permcath but we are using one needle in graft Surgeon - con Landry Staff and patient report access is working poorly Hopefully will be able to transition to the graft soon. We can now only use the percath for return. Doing well on dialysis so far. Have used two needles but only one today because of infiltrate. She will see surgeon tomorrow. Permcath may be pulled on September 04 if things going well. Doing ok on dialysis, with no hypotension. Looks to me like she is at her dry weight. She is getting stronger. Have decided to increase her phoslo to 2 with meals given the phos of 8. She is still on calcitriol will transition to hectorol when she runs out. Westley Vidal MD [ Signed And locked electronically On 08/20/2021 at 03:15:28 PM ] Transcribed: Westley Vidal ( 08/20/2021 ) documented in this encounter Plan of Treatment Not on filedocumented as of this encounter Visit Diagnoses Not on filedocumented in this encounter
--- OUTSIDE RECORDS SUMMARY | 2022-04-02 21:37 | XMS_ITS | Encounter Summary ---
:1950 Author Organization [facility] Address [address] [place] [address] Care Team Providers Name Role Phone Unavailable Primary Care Provider Unavailable Encounter Details Date Type Department Care Team Description 09/01/2021 Treatment [facility] f Westley Meeks MD [address] [place] [address] [place] [address] [place], [place] [phone] Social History Tobacco Use Types Packs/Day Years Used Date Smoking Tobacco: Never Assessed Sex Assigned at Date Recorded Not on file documented as of this encounter Miscellaneous Notes Dialysis Note - Westley Vidal MD - 09/01/2021 5:23 PM CDT Date: September 01, 2021 Patient Name: Charlotte Ramos : 1950 Chart #: [id number] Sex: F This patient was personally seen for a complete visit as part of routine monthly dialysis care. A review of the dialysis treatment, blood pressure, estimated dry weight and recent lab values was made. These were discussed with the patient and staff as necessary. FIRE OFFICER: Westley Vidal MD LOCATION: [place] [phone] SCHEDULE: -- 2nd Shift EDW: kg. DIALYZER: HD DURATION: [...] episode yesterday afternoon when she felt weak. Advanced Practitioner Subjective Review of Systems Problem [...] made. Treatment and Adequacy Assessment BUN mg/dL 72 (08/18/21) 61 (08/06/21) 66 (07/16/21) 48 (07/04/21) CREATININE (MG/DL) IN SER/PLAS mg/dL 6.16 (08/18/21) 5.03 (07/21/21) 4.69 (07/04/21) URR% % 72 (08/18/21) 69 (08/06/21) 77 (07/16/21) 69 (07/04/21) Dialysis is adequate. Achieves prescribed time - Yes Achieves prescribed frequency - Yes Missed treatments in past 30 days - 0 Vascular Access Assessment Type of access: permcath but we are using one needle in graft Surgeon - con Landry Staff and patient report access is working poorly Had two needles in graft today. Anemia Assessment WBC (BLOOD) x 103 cells/uL 6.8 (08/18/21) 8.6 (07/21/21) 5.6 (07/04/21) HGB g/dL 8.8 (08/25/21) 8.0 (08/18/21) 7.6 (08/11/21) 8.1 (08/04/21) 8.3 (07/21/21) PLATELETS x 103 cells/uL 175 (08/18/21) 203 (07/21/21) 132 (07/04/21) IRON SATURATION % 23 (08/18/21) 32 (07/21/21) 42 (07/04/21) FERRITIN ng/mL 742 (08/18/21) 692 (07/21/21) 1114 (07/04/21) Hemoglobin is below goal. Iron Saturation is at goal. Ferritin is at goal. Will adjust LINA and intravenous iron per protocol. Nutritional and Metabolic Assessment ALBUMIN (G/DL) g/dL 3.8 (08/18/21) 3.7 (07/21/21) 3.8 (07/04/21) POTASSIUM (MMOL/L) IN SER/PLAS mEq/L 4.9 (08/18/21) 4.5 (07/21/21) 4.4 (07/04/21) BICARBONATE (CO2) mEq/L 22 (08/18/21) 19 (07/21/21) 28 (07/04/21) Albumin [...] above goal. Intact PTH is at goal. Cardiovascular Assessment acceptable. Intradialytic weight gains are appropriate. Estimated dry weight is appropriate. Transplant Status: Patient is not a candidate. Not transplant candidate due to obesity and her myeloma. Resuscitation Status New initiate. So far tolerating dialysis ok. Graft now functioning Vascular surgery does not believethere are any options for a fistula. Myltiple myeloma being monitored by hematology not currently receiving active treatment. Have raised dry weight because of hypotensive episode on dialysis last week. Phos too high , Says she is taking binder, working with dietitian. PTH is ok. HGB still low, resistant to epo probably because of myeloma Westley Vidal MD [ Signed And locked electronically On 09/01/2021 at 05:31:43 PM ] Transcribed: Westley Vidal ( 09/01/2021 ) documented in this encounter Plan of Treatment Not on filedocumented as of this encounter Visit Diagnoses Not on filedocumented in this encounter
--- OUTSIDE RECORDS SUMMARY | 2022-04-02 21:37 | XMS_ITS | Encounter Summary ---
:1950 Author Organization [facility] Address [address] [place] [address] [address] [place] [address] Care Team Providers Name Role Phone Unavailable Primary Care Provider Unavailable Encounter Details Date Type Department Care Team Description 07/16/2021 Documentation Only [facility] ALESSIA No, Pcp [address] [place] [address] Social History Tobacco Use Types Packs/Day Years Used Date Smoking Tobacco: Never Assessed Sex Assigned at Date Recorded Not on file documented as of this encounter Plan of Treatment Not on filedocumented as of this encounter Visit Diagnoses Not on filedocumented in this encounter
--- OUTSIDE RECORDS SUMMARY | 2022-04-02 21:37 | XMS_ITS | Encounter Summary ---
:1950 Author Organization [facility] Address [address] [place] [address] Care Team Providers Name Role Phone Unavailable Primary Care Provider Unavailable Encounter Details Date Type Department Care Team Description 08/11/2021 Treatment [facility] f Westley Meeks MD [address] [place] [address] [place] [address] [place], [place] [phone] Social History Tobacco Use Types Packs/Day Years Used Date Smoking Tobacco: Never Assessed Sex Assigned at Date Recorded Not on file documented as of this encounter Miscellaneous Notes Dialysis Note - Westley Vidal MD - 08/11/2021 4:16 PM CDT Date: Aug 11, 2021 Patient Name: Charlotte Ramos : 1950 Chart #: [id number] Sex: F This patient was personally seen for a basic visit as part of routine weekly dialysis care. A reviewof the dialysis treatment, blood pressure, estimated dry weight and recent lab values was made. These were discussed with the patient and staff as necessary. GROCERY CLERK MARKING: Westley Vidal MD LOCATION: [place] [phone] SCHEDULE: -- 2nd Shift ACCESS: EDW: kg. [...] off on further treatment at this time. Advanced Practitioner Subjective: Problem List Description ICD9 [...] and no changes were made. BUN mg/dL 61 (08/06/21) 66 (07/16/21) 48 (07/04/21) CREATININE (MG/DL) IN SER/PLAS mg/dL 5.03 (07/21/21) 4.69 (07/04/21) URR% % 69 (08/06/21) 77 (07/16/21) 69 (07/04/21) WBC (BLOOD) x 103 cells/uL 8.6 (07/21/21) 5.6 (07/04/21) HGB g/dL 8.1 (08/04/21) 8.3 (07/21/21) 7.4 (07/16/21) 8.1 (07/04/21) PLATELETS x 103 cells/uL 203 (07/21/21) 132 (07/04/21) IRON SATURATION % 32 (07/21/21) 42 (07/04/21) FERRITIN ng/mL 692 (07/21/21) 1114 (07/04/21) ALBUMIN (G/DL) g/dL 3.7 (07/21/21) 3.8 (07/04/21) POTASSIUM (MMOL/L) IN SER/PLAS mEq/L 4.5 (07/21/21) 4.4 (07/04/21) BICARBONATE (CO2) mEq/L 19 (07/21/21) 28 (07/04/21) CALCIUM mg/dL 8.2 [...] mg/dL 5.6 (08/04/21) 5.5 (07/16/21) 5.0 (07/04/21) IPTH [...] return. Doing well on dialysis so far. Now using two needles so will schedule removal of permcath on the same day she has scheduled to see the surgeon regarding her access. She also has an appointment scheduled for August 21. Doing ok on dialysis, with no hypotension. Looks to me like she is at her dry weight. Westley Vidal MD [ Signed And locked electronically On 08/11/2021 at 04:30:32 PM ] Transcribed: Westley Vidal ( 08/11/2021 ) documented in this encounter Plan of Treatment Not on filedocumented as of this encounter Visit Diagnoses Not on filedocumented in this encounter
--- OUTSIDE RECORDS SUMMARY | 2022-04-02 21:37 | XMS_ITS | Encounter Summary ---
:1950 Author Organization [facility] Address [address] [place] [address] Care Team Providers Name Role Phone Unavailable Primary Care Provider Unavailable Encounter Details Date Type Department Care Team Description 01/12/2022 Treatment [facility] Darrel Lepe MD [address] [place] [address] [place] [address] [place], [place] [address] [place], [place] [phone] (Wo rk) Social History Tobacco Use Types Packs/Day Years Used Date Smoking Tobacco: Never Assessed Sex Assigned at Date Recorded Not on file documented as of this encounter Miscellaneous Notes Dialysis Note - Darrel Delgadillo MD - 01/12/2022 9:25 AM CDT Date: Jan 12, 2022 Patient Name: Charlotte Ramos : 1950 Chart #: [id number] Sex: F This patient was personally seen for a complete visit as part of routine monthly dialysis care. A review of the dialysis treatment, blood pressure, estimated dry weight and recent lab values was made. These were discussed with the patient and staff as necessary. ECOLOGIST TECHNICIAN: Darrel Delgadillo MD LOCATION: [facility] [phone] SCHEDULE: M-W-F 2nd Shift EDW: kg. DIALYZER: HD DURATION: NEEDLE SIZE: ANTICOAG: BATH: QB: ml/min QD: ml/min Subjective Doing well overall. BMBx done on 01/06/22 w/ 30% plasma cell involvement (was 20% one year ago). Will discuss w/ onc MD soon. Also awaiting MRI of the spine to determine if there is an area(s) of irradiation that may be necessary for MET disease. 11/21: New to me. Tolerating hd better since she had cor stents placed at [facility]. Hosp 10/21/21-11/01/2021.Coronary angiogram on 10/29/21 which [...] ordered. Treatment and Adequacy Assessment BUN mg/dL 42 (01/02/22) 51 (12/01/21) 29 (11/07/21) TNP (11/05/21) 57 (10/06/21) CREATININE (MG/DL) IN SER/PLAS mg/dL 6.04 (12/17/21) 5.79 (11/17/21) 6.30 (11/14/21) TNP (11/05/21) 5.69 (09/15/21) URR% % 76 (01/02/22) 76 (12/01/21) 79 (11/07/21) See Below (11/05/21) 77 (10/06/21) Dialysis is adequate. Achieves prescribed time - Yes Achieves prescribed frequency - Yes Missed treatments in past 30 days - 0 Goal sp kt/v >/= 1.2 01/22: at goal here. Vascular Access Assessment Type of access: GraftLUE forearm avg Surgeon - con [place] Staff and patient report access is working 12/01/21: u/s reviewed. Will refer for preemptive f'gram. Anemia Assessment WBC (BLOOD) x 103 cells/uL 8.5 (12/17/21) 6.0 (11/17/21) 6.2 (11/14/21) 7.4 (11/05/21) 8.2 (09/15/21) HGB g/dL 8.5 (01/02/22) 9.0 (12/29/21) 8.9 (12/22/21) 9.1 (12/17/21) 9.1 (12/08/21) PLATELETS x 103 cells/uL 209 (12/17/21) 167 (11/17/21) 140 (11/14/21) 184 (11/05/21) 247 (09/15/21) IRON SATURATION % 43 (12/17/21) 60 (11/17/21) 42 (11/14/21) 29 (09/15/21) 23 (08/18/21) FERRITIN ng/mL 1443 (12/17/21) 1537 (11/17/21) 1455 (11/14/21) 2458 (11/05/21) 1041 (09/15/21) Hemoglobin is below goal. Iron Saturation is at goal. Ferritin is above goal. Will adjust LINA and intravenous iron per protocol. hgb -01/22: LINA has been cleared by onc to be administered by us. Transfusion dependent. We will share her hgb values done weekly with her onc MD. Nutritional and Metabolic Assessment ALBUMIN (G/DL) g/dL 3.7 (12/17/21) 3.6 (11/17/21) 3.5 (11/14/21) Pending (11/05/21) 3.8 (09/15/21) POTASSIUM (MMOL/L) IN SER/PLAS mEq/L 5.3 (12/17/21) 4.6 (11/17/21) 4.7 (11/14/21) Pending (11/05/21) 5.3 (09/15/21) BICARBONATE (CO2) mEq/L 18 (12/17/21) 18 (11/17/21) 16 (11/14/21) Pending (11/05/21) 20 (09/15/21) Albumin is below goal. Potassium is at goal. Encourage low potassium diet. Bicarbonate is at goal. Continue same bicarbonate in dialysate. alb >/= 4; k 3.5-5.6; HCO3 17-24. 01/22: Alb suboptimal but improving... K is fine and HCO3 is at goal. Push protein intake as able. Bone and Mineral Metabolism Assessment CALCIUM mg/dL 9.0 (01/02/22) 9.0 (12/01/21) 8.2 (11/14/21) Pending (11/05/21) 9.2 (10/06/21) CORRECTED CALCIUM mg/dL 9.2 (01/02/22) 9.3 (12/01/21) 8.6 (11/14/21) 9.4 (10/06/21) 8.3 (09/01/21) PHOSPHORUS mg/dL 4.9 (01/02/22) 4.7 (12/17/21) 6.6 (12/01/21) 7.1 (11/24/21) 6.9 (11/14/21) CA*PO4 CORRCTD Calc 45.1 (01/02/22) 61.4 (12/01/21) 59.3 (11/14/21) 63.0 (10/06/21) 64.7 (09/01/21) IPTH pg/mL 16 (11/05/21) 385 (08/04/21) 121 (07/04/21) Corrected Calcium is at goal. Phosphorous is at goal. Ca X P product is at goal. Intact PTH is below goal. Ca 8.5-10; phos 3-5.5; Ca x phos < 50; PTH 150-700 01/22: Phos is fine / well controlled. Ca is in goal as well. Based on malignancy, suppressed PTH is not surprising. Cardiovascular Assessment Blood [...] with patient 11/10/21 who requested Full Code. 01/22: As below from 12/22. Will adjust hd as needed if chemo restarteed. 12/22: Await word on chemo restarting. Transfuse PRN 11/21: doing much better since cor angio. We will see how things go once chemo restarted... Darrel Delgadillo MD [ Signed And locked electronically On 01/12/2022 at 09:31:39 AM ] Transcribed: Darrel Delgadillo ( 01/12/2022 ) documented in this encounter Plan of Treatment Not on filedocumented as of this encounter Visit Diagnoses Not on filedocumented in this encounter
--- OUTSIDE RECORDS SUMMARY | 2022-04-02 21:37 | XMS_ITS | Encounter Summary ---
:1950 Author Organization [facility] Address [address] [place] [address] Care Team Providers Name Role Phone Unavailable Primary Care Provider Unavailable Encounter Details Date Type Department Care Team Description 11/08/2021 Treatment [facility] Darrel Lepe MD [address] [place] [address] [place] [address] [place], [place] [address] [place], [place] [phone] (Wo rk) Social History Tobacco Use Types Packs/Day Years Used Date Smoking Tobacco: Never Assessed Sex Assigned at Date Recorded Not on file documented as of this encounter Miscellaneous Notes Dialysis Note - Darrel Delgadillo MD - 11/08/2021 10:06 AM CDT Date: Nov 08, 2021 Patient Name: Charlotte Ramos : 1950 Chart #: [id number] Sex: F Patient Type: ESRD Modality: Hemodialysis Primary Cause of Renal Failure: E11.9 - Type 2 diabetes mellitus Community Development Officer: Darrel Delgadillo MD Location: [place] [phone] Schedule: M-W-F 2nd Shift Initial Access Initial Modality: Hemodialysis Initial Access used on first patient dialysis: Catheter - No Reason Selected Darrel Delgadillo MD [ Signed And locked electronically On 11/08/2021 at 09:06:37 AM ] Transcribed: Darrel Delgadillo MD ( 11/08/2021 ) documented in this encounter Plan of Treatment Not on filedocumented as of this encounter Visit Diagnoses Not on filedocumented in this encounter
--- OUTSIDE RECORDS SUMMARY | 2022-04-02 21:37 | XMS_ITS | Encounter Summary ---
:1950 Author Organization [facility] Address [address] [place] [address] Care Team Providers Name Role Phone Unavailable Primary Care Provider Unavailable Encounter Details Date Type Department Care Team Description 07/04/2021 Orders Only [facility] Westley Meeks MD [address] [place] [address] ALESSIA JENSEN [id number] Social History Tobacco Use Types Packs/Day Years Used Date Smoking Tobacco: Never Assessed Sex Assigned at Date Recorded Not on file documented as of this encounter Plan of Treatment Not on filedocumented as of this encounter Procedures Procedure Name Priority Date/Time Associated Comments Diagnosis HCT CALC HGBX3 (HC) Routine 09/26/2021 4:00 AM Re sults for this CDT procedure are i n the results section. HEMOGLOBIN Routine 09/26/2021 4:00 AM Results f or this CDT procedure are i n the results section. PHOSPHATE ( Routine 09/26/2021 4:00 AM Results for this PHOSPHORUS) CDT procedure are i n the results section. HCT CALC HGBX3 (HC) Routine 09/22/2021 4:00 AM Re sults for this CDT procedure are i n the results section. HEMOGLOBIN Routine 09/22/2021 4:00 AM Results f or this CDT procedure are i n the results section. MONTHLY HD W/O CA/PH Routine 09/15/2021 4:00 AM R esults for this (HC) CDT procedure are i n the results section. IRON PANEL (FE, TIBC, Routine 09/15/2021 4:00 AM Results for this TSAT) CDT procedure are i n the results section. HEPATITIS B SURFACE Routine 09/15/2021 4:00 AM Re sults for this ANTIGEN CDT procedure are i n the results section. ALT Routine 09/15/2021 4:00 AM Results f or this CDT procedure are i n the results section. PHOSPHATE ( Routine 09/15/2021 4:00 AM Results for this PHOSPHORUS) CDT procedure are i n the results section. GLUCOSE, RANDOM Routine 09/15/2021 4:00 AM Result s for this CDT procedure are i n the results section. FERRITIN Routine 09/15/2021 4:00 AM Results f or this CDT procedure are i n the results section. CREATININE, SERUM Routine 09/15/2021 4:00 AM Resu lts for this CDT procedure are i n the results section. HCT CALC HGBX3 (HC) Routine 09/08/2021 4:00 AM Re sults for this CDT procedure are i n the results section. HEMOGLOBIN Routine 09/08/2021 4:00 AM Results f or this CDT procedure are i n the results section. CARMEN/PHOS W/RATI (HC) Routine 09/01/2021 4:00 AM R esults for this CDT procedure are i n the results section. KT/V DAUGIRDAS (HC) Routine 09/01/2021 4:00 AM Re sults for this CDT procedure are i n the results section. HCT CALC HGBX3 (HC) Routine 09/01/2021 4:00 AM Re sults for this CDT procedure are i n the results section. HEMOGLOBIN Routine 09/01/2021 4:00 AM Results f or this CDT procedure are i n the results section. HCT CALC HGBX3 (HC) Routine 08/25/2021 1:30 PM Re sults for this CDT procedure are i n the results section. HEMOGLOBIN Routine 08/25/2021 1:30 PM Results f or this CDT procedure are i n the results section. HCV PANEL NONPROTOCL Routine 08/18/2021 1:30 PM R esults for this (HC) CDT procedure are i n the results section. KT/V DAUGIRDAS (HC) Routine 08/18/2021 1:30 PM Re sults for this CDT procedure are i n the results section. MONTHLY HD W/O CA/PH Routine 08/18/2021 1:30 PM R esults for this (HC) CDT procedure are i n the results section. IRON PANEL (FE, TIBC, Routine 08/18/2021 1:30 PM Results for this TSAT) CDT procedure are i n the results section. HEPATITIS B SURFACE Routine 08/18/2021 1:30 PM Re sults for this ANTIGEN CDT procedure are i n the results section. ALT Routine 08/18/2021 1:30 PM Results f or this CDT procedure are i n the results section. PHOSPHATE ( Routine 08/18/2021 1:30 PM Results for this PHOSPHORUS) CDT procedure are i n the results section. HEMOGLOBIN A1C Routine 08/18/2021 1:30 PM Results for this CDT procedure are i n the results section. GLUCOSE, RANDOM Routine 08/18/2021 1:30 PM Result s for this CDT procedure are i n the results section. FERRITIN Routine 08/18/2021 1:30 PM Results f or this CDT procedure are i n the results section. CREATININE, SERUM Routine 08/18/2021 1:30 PM Resu lts for this CDT procedure are i n the results section. HCT CALC HGBX3 (HC) Routine 08/11/2021 1:30 PM Re sults for this CDT procedure are i n the results section. HEMOGLOBIN Routine 08/11/2021 1:30 PM Results f or this CDT procedure are i n the results section. KT/V DAUGIRDAS (HC) Routine 08/06/2021 1:30 PM Re sults for this CDT procedure are i n the results section. CARMEN/PHOS W/RATI (HC) Routine 08/04/2021 1:30 PM R esults for this CDT procedure are i n the results section. KT/V DAUGIRDAS (HC) Routine 08/04/2021 1:30 PM CDT HCT CALC HGBX3 (HC) Routine 08/04/2021 1:30 PM Re sults for this CDT procedure are i n the results section. RETICULOCYTES Routine 08/04/2021 1:30 PM Results for this CDT procedure are i n the results section. HEMOGLOBIN Routine 08/04/2021 1:30 PM Results f or this CDT procedure are i n the results section. PTH, INTACT Routine 08/04/2021 1:30 PM Results f or this CDT procedure are i n the results section. RETICULOCYTES Routine 08/01/2021 1:30 PM Results for this CDT procedure are i n the results section. MONTHLY HD W/O CA/PH Routine 07/21/2021 1:30 PM R esults for this (HC) CDT procedure are i n the results section. IRON PANEL (FE, TIBC, Routine 07/21/2021 1:30 PM Results for this TSAT) CDT procedure are i n the results section. HEPATITIS B SURFACE Routine 07/21/2021 1:30 PM Re sults for this ANTIGEN CDT procedure are i n the results section. ALT Routine 07/21/2021 1:30 PM Results f or this CDT procedure are i n the results section. GLUCOSE, RANDOM Routine 07/21/2021 1:30 PM Result s for this CDT procedure are i n the results section. FERRITIN Routine 07/21/2021 1:30 PM Results f or this CDT procedure are i n the results section. CREATININE, SERUM Routine 07/21/2021 1:30 PM Resu lts for this CDT procedure are i n the results section. CULTURE,CATHETER EXIT Routine 07/18/2021 1:30 PM Results for this SITE CDT procedure are i n the results section. CARMEN/PHOS W/RATI (HC) Routine 07/16/2021 1:30 PM R esults for this CDT procedure are i n the results section. KT/V DAUGIRDAS (HC) Routine 07/16/2021 1:30 PM Re sults for this CDT procedure are i n the results section. HCT CALC HGBX3 (HC) Routine 07/16/2021 1:30 PM Re sults for this CDT procedure are i n the results section. HEMOGLOBIN Routine 07/16/2021 1:30 PM Results f or this CDT procedure are i n the results section. HCV PANEL PROTOCOL Routine 07/04/2021 1:45 PM Res ults for this (HC) HAND RIGGER procedure are i n the results section. CARMEN/PHOS W/RATI (HC) Routine 07/04/2021 1:45 PM R esults for this HAND RIGGER procedure are i n the results section. KT/V DAUGIRDAS (HC) Routine 07/04/2021 1:45 PM Re sults for this HAND RIGGER procedure are i n the results section. MONTHLY HD W/O CA/PH Routine 07/04/2021 1:45 PM R esults for this (HC) HAND RIGGER procedure are i n the results section. IRON PANEL (FE, TIBC, Routine 07/04/2021 1:45 PM Results for this TSAT) HAND RIGGER procedure are i n the results section. HEPATITIS B CORE AB Routine 07/04/2021 1:45 PM Re sults for this TOTAL HAND RIGGER procedure are i n the results section. HEPATITIS B SURFACE Routine 07/04/2021 1:45 PM Re sults for this ANTIBODY QUANT HAND RIGGER procedure are in the results section. HEPATITIS B SURFACE Routine 07/04/2021 1:45 PM Re sults for this ANTIGEN HAND RIGGER procedure are i n the results section. ALT Routine 07/04/2021 1:45 PM Results f or this HAND RIGGER procedure are i n the results section. PTH, INTACT Routine 07/04/2021 1:45 PM Results f or this HAND RIGGER procedure are i n the results section. HEMOGLOBIN A1C Routine 07/04/2021 1:45 PM Results for this HAND RIGGER procedure are i n the results section. GLUCOSE, RANDOM Routine 07/04/2021 1:45 PM Result s for this HAND RIGGER procedure are i n the results section. FERRITIN Routine 07/04/2021 1:45 PM Results f or this HAND RIGGER procedure are i n the results section. CREATININE, SERUM Routine 07/04/2021 1:45 PM Resu lts for this HAND RIGGER procedure are i n the results section. documented in this encounter Results Phosphorus (09/26/2021 4:00 AM CDT) P athologist Signature Phosphorus, TNP mg/dL SUZANNE WYATT Serum [facility] Comment: Recollect - Specimen not sent p er order Specimen Anatomical Collection Method Collection Time Receive d Time (Source) Location / / Volume Laterality 09/26/2021 4:00 AM CDT 11:42 AM CDT Westley Vidal MD LAB BLOOD ORDERABLES Performing Organization Address City/State/ZIP Code Phon e Number APS YOSELIN [facility] (ABNORMAL) Hemoglobin (09/26/2021 4:00 AM CDT) P athologist Signature Hgb 9.9 (L) 12.0 - 16.0 APS DAVITA g/dL [facility] Specimen Anatomical Collection Method Collection Time Receive d Time (Source) Location / / Volume Laterality 09/26/2021 4:00 AM 2 CDT 11:42 AM CDT Westley Vidal MD LAB BLOOD ORDERABLES Performing Organization Address City/[facility]/ZIP Code Phon e Number APS DAVITA [facility] (ABNORMAL) HCT CALC HGBX3 (09/26/2021 4:00 AM CDT) Analysis Performed At Patho logist Time Signature Hemoglobin x 3 29.7 (L) 37.0 - APS DAVITA 47.0 % [facility] Specimen Anatomical Collection Method Collection Time Receive d Time (Source) Location / / Volume Laterality 09/26/2021 4:00 AM 2 CDT 11:42 AM CDT Westley Vidal MD LAB [id number] NSOLICITED RESULTS Performing Organization Address [facility] Phon e Number APS DAVITA [facility] (ABNORMAL) Hemoglobin (09/22/2021 4:00 AM CDT) athologist Signature Hgb 9.8 (L) 12.0 - 16.0 APS DAVITA g/dL [facility] Specimen Anatomical Collection Method Collection Time Receive d Time (Source) Location / / Volume Laterality 09/22/2021 4:00 AM 2 CDT 12:27 PM CDT Westley Vidal MD LAB BLOOD ORDERABLES Performing Organization Address [facility] Code Phon e Number APS DAVITA [facility] (ABNORMAL) HCT CALC HGBX3 (09/22/2021 4:00 AM CDT) Analysis Performed At Patho logist Time Signature Hemoglobin x 3 29.4 (L) 37.0 - APS DAVITA 47.0 % [facility] Specimen Anatomical Collection Method Collection Time Receive d Time (Source) Location / / Volume Laterality 09/22/2021 4:00 AM 2 CDT 12:27 PM CDT Westley Vidal MD LAB [id number] NSOLICITED RESULTS Performing Organization Address City/[facility] Code Phon e Number APS DAVITA [facility] Hepatitis B Surface Antigen (09/15/2021 4:00 AM CDT) P athologist Signature Hep B Surface NEG -NEG APS DAVITA Antigen [facility] Comment: This test utilizes Biotin (Vitamin B7) a s one of it's reagents. Testing may be interfered with in patients consuming Bi otin supplements. Please factor this when reviewing results. Specimen Anatomical Collection Method Collection Time Receive d Time (Source) Location / / Volume Laterality 09/15/2021 4:00 AM 2 5:44 CDT PM CDT Westley Vidal MD LAB BLOOD ORDERABLES Performing Organization Address City/[facility] Code Phon e Number APS DAVITA [facility] (ABNORMAL) Ferritin (09/15/2021 4:00 AM CDT) P athologist Signature Ferritin 1,041 (H) 10 - 291 APS DAVITA ng/mL [facility] Specimen Anatomical Collection Method Collection Time Receive d Time (Source) Location / / Volume Laterality 09/15/2021 4:00 AM 2 5:44 CDT PM CDT Westley Vidal MD LAB BLOOD ORDERABLES Performing Organization Address [facility] Code Phon e Number APS DAVITA [facility] ALT (09/15/2021 4:00 AM CDT) P athologist Signature ALT (SGPT) 15 10 - 49 U/L APS DAVITA [facility] Specimen Anatomical Collection Method Collection Time Receive d Time (Source) Location / / Volume Laterality 09/15/2021 4:00 AM 2 5:44 CDT PM CDT Westley Vidal MD LAB BLOOD ORDERABLES Performing Organization Address [facility]/ZIP Code Phon e Number APS DAVITA [facility] (ABNORMAL) Phosphorus (09/15/2021 4:00 AM CDT) P athologist Signature Phosphorus, 7.0 (H) 2.4 - 5.1 APS DAVITA Serum mg/dL [facility] Specimen Anatomical Collection Method Collection Time Receive d Time (Source) Location / / Volume Laterality 09/15/2021 4:00 AM 2 5:44 CDT PM CDT Westley Vidal MD LAB BLOOD ORDERABLES Performing Organization Address City/[facility]/ZIP Code Phon e Number APS DAVITA [facility] (ABNORMAL) Glucose, random (09/15/2021 4:00 AM CDT) athologist Signature Glucose 169 (H) 70 - 99 APS DAVITA mg/dL [facility] Specimen Anatomical Collection Method Collection Time Receive d Time (Source) Location / / Volume Laterality 09/15/2021 4:00 AM 2 5:44 CDT PM CDT Westley Vidal MD LAB BLOOD ORDERABLES Performing Organization Address City/[facility]/ZIP Code Phon e Number APS DAVITA [facility] (ABNORMAL) Creatinine, serum (09/15/2021 4:00 AM CDT) athologist Signature Creatinine 5.69 (H) 0.50 - 1.10 APS DAVITA mg/dL [facility] Specimen Anatomical Collection Method Collection Time Receive d Time (Source) Location / / Volume Laterality 09/15/2021 4:00 AM 2 5:44 CDT PM CDT Westley Vidal MD LAB BLOOD ORDERABLES Performing Organization Address City/[facility]/ZIP Code Phon e Number APS DAVITA [facility] (ABNORMAL) Iron Panel (Fe, TIBC, TSAT) (09/15/2021 4:00 AM CDT) athologist Signature Iron 65 50 - 170 APS DAVITA ug/dL [facility] TIBC 224 (L) 250 - 425 APS DAVITA ug/dL [facility] UIBC 159 80 - 375 APS DAVITA ug/dL [facility] Iron Saturation 29 16 - 46 % APS DAVITA (TSat) [facility] Specimen Anatomical Collection Method Collection Time Receive d Time (Source) Location / / Volume Laterality 09/15/2021 4:00 AM 2 5:44 CDT PM CDT Westley Vidal MD LAB BLOOD ORDERABLES Performing Organization Address City/[facility]/ZIP Code Phon e Number APS DAVITA [facility] (ABNORMAL) MONTHLY HD W/O CA/PH (09/15/2021 4:00 AM CDT) [facility] Time Signature Potassium 5.3 3.5 - 5.5 APS DAVITA mEq/L [facility] Chloride 108 99 - 109 APS DAVITA mEq/L [facility] Bicarbonate 20 20 - 31 APS DAVITA (CO2) mEq/L [facility] Protein, Total 7.3 5.7 - 8.2 APS DAVITA g/dL [facility] Albumin 3.8 3.4 - 4.8 APS DAVITA g/dL [facility] AST (SGOT) 21 0 - 33 APS DAVITA U/L [facility] LDH 174 120 - 246 APS DAVITA U/L [facility] Alkaline 141 (H) 46 - 116 APS DAVITA Phosphatase U/L [facility] WBC 8.2 4.5 - APS DAVITA 11.0 x [facility] 10'3 cells/uL RBC 2.66 (L) 4.20 - APS DAVITA 5.40 x [facility] 10'6 cells/uL Hgb 8.9 (L) 12.0 - APS DAVITA 16.0 g/dL [facility] Hematocrit 28.2 (L) 37.0 - APS DAVITA 47.0 % [facility] Hemoglobin x 3 26.7 (L) 37.0 - APS DAVITA 47.0 % [facility] MCV 106.2 (H) 80.0 - APS DAVITA 100.0 fL [facility] Comment: NOTE: MCV may be falsely elevat ed in aged samples (approximately 72 hours). MCH 33.4 (H) 27.0 - 31.0 pg APS DAVITA [facility] N MCHC 31.4 (L) 32.0 - 36.0 g/dL APS DAVITA [place] MMN RDW 17.1 (H) 11.0 - 15.0 % APS DAVITA [facility] Platelets 247 150 - 400 x 10'3 cells/uL APS DAVITA [facility] Neutrophils % Auto 67.5 % APS DAVITA [facility] Lymphocytes Manual 22.9 % APS DAVITA [facility] Monocytes Manual 4.6 % APS DAVITA [place] MMN Eosinophil % 4.7 % APS DAVITA [facility] Basophils Relative 0.3 % APS DAVITA [facility] Neutrophils Absolute 5,555.25 2,000 - 8,800 Cell/uL APS DAVITA [facility] Lymphocytes Absolute 1,884.67 1,100 - 4,800 Cell/uL APS DAVITA [facility] Monocytes Absolute 378.58 0 - 1,100 Cell/uL APS DAVITA [facility] Eosinophils Absolute 386.81 0 - 700 Cell/uL APS DAVITA [facility] Basophils Absolute 24.69 0 - 400 Cell/uL APS D CRYSTALTA [facility] Comment: NOTE:Diff percentage results will contin [...] Time (Source) Location / / Volume Laterality 09/15/2021 4:00 AM 2 5:44 CDT PM CDT Westley Vidal MD LAB [id number] NSOLICITED RESULTS Performing Organization Address [facility]/ZIP Code Phon e Number APS DAVITA [facility] (ABNORMAL) Hemoglobin (09/08/2021 4:00 AM CDT) athologist Signature Hgb 9.1 (L) 12.0 - 16.0 APS DAVITA g/dL [facility] Specimen Anatomical Collection Method Collection Time Receive d Time (Source) Location / / Volume Laterality 09/08/2021 4:00 AM 2 CDT 11:16 AM CDT Westley Vidal MD LAB BLOOD ORDERABLES Performing Organization Address [facility] Code Phon e Number APS DAVITA [facility] (ABNORMAL) HCT CALC HGBX3 (09/08/2021 4:00 AM CDT) Analysis Performed At Patho logist Time Signature Hemoglobin x 3 27.3 (L) 37.0 - APS DAVITA 47.0 % [facility] Specimen Anatomical Collection Method Collection Time Receive d Time (Source) Location / / Volume Laterality 09/08/2021 4:00 AM 2 CDT 11:16 AM CDT Westley Vidal MD LAB [id number] NSOLICITED RESULTS Performing Organization Address City/[facility]/ZIP Code Phon e Number APS DAVITA [facility] (ABNORMAL) Hemoglobin (09/01/2021 4:00 AM CDT) athologist Signature Hgb 8.1 (L) 12.0 - 16.0 APS DAVITA g/dL [facility] Specimen Anatomical Collection Method Collection Time Receive d Time (Source) Location / / Volume Laterality 09/01/2021 4:00 AM 2 9:33 CDT AM CDT Westley Vidal MD LAB BLOOD ORDERABLES Performing Organization Address City/State/ZIP Code Phon e Number APS DAVITA [facility] (ABNORMAL) HCT CALC HGBX3 (09/01/2021 4:00 AM CDT) Analysis Performed At Patho logist Time Signature Hemoglobin x 3 24.3 (L) 37.0 - APS DAVITA 47.0 % [facility] Specimen Anatomical Collection Method Collection Time Receive d Time (Source) Location / / Volume Laterality 09/01/2021 4:00 AM 2 9:33 CDT AM CDT Westley Vidal MD LAB [id number] NSOLICITED RESULTS Performing Organization Address City/[facility]/ZIP Code Phon e Number APS DAVITA [facility] (ABNORMAL) KT/V DAUGIRDAS (09/01/2021 4:00 AM CDT) P athologist Signature BUN 60 (H) 9 - 23 APS DAVITA mg/dL [facility] BUN Post 15 9 - 23 APS DAVITA Dialysis mg/dL [facility] URR% 75 65 - 100 % APS DAVITA [facility] Specimen Anatomical Collection Method Collection Time Receive d Time (Source) Location / / Volume Laterality 09/01/2021 4:00 AM 2 9:33 CDT AM CDT Westley Vidal MD LAB [id number] NSOLICITED RESULTS Performing Organization Address City/State/ZIP Code Phon e Number APS DAVITA [facility] (ABNORMAL) CARMEN/PHOS W/RATI (09/01/2021 4:00 AM CDT) P athologist Signature Calcium 8.1 (L) 8.7 - 10.4 APS DAVITA mg/dL [facility] Phosphorus, 7.8 (H) 2.4 - 5.1 APS DAVITA Serum mg/dL [facility] CA/PHOS 63.2 (H) 21 - 53 APS DAVITA PRODUCT Calc [facility] Corrected 8.3 (L) 8.7 - 10.4 APS DAVITA Calcium mg/dL [facility] CA*PO4 CORRCTD 64.7 (H) 21 - 53 APS DAVITA Calc [facility] Specimen Anatomical Collection Method Collection Time Receive d Time (Source) Location / / Volume Laterality 09/01/2021 4:00 AM 2 9:33 CDT AM CDT Westley Vidal MD LAB [id number] NSOLICITED RESULTS Performing Organization Address City/[facility]/ZIP Code Phon e Number APS DAVITA [facility] (ABNORMAL) Hemoglobin (08/25/2021 1:30 PM CDT) P athologist Signature Hgb 8.8 (L) 12.0 - 16.0 APS DAVITA g/dL [facility] Specimen Anatomical Collection Method Collection Time Receive d Time (Source) Location / / Volume Laterality 08/25/2021 1:30 PM 2 CDT 11:39 AM CDT Westley Vidal MD LAB BLOOD ORDERABLES Performing Organization Address City/[facility]/ZIP Code Phon e Number APS DAVITA [facility] (ABNORMAL) HCT CALC HGBX3 (08/25/2021 1:30 PM CDT) [facility] Signature Hemoglobin x 3 26.4 (L) 37.0 - APS DAVITA 47.0 % [facility] Specimen Anatomical Collection Method Collection Time Receive d Time (Source) Location / / Volume Laterality 08/25/2021 1:30 PM 2 CDT 11:39 AM CDT Westley Vidal MD LAB [id number] NSOLICITED RESULTS Performing Organization Address City/[facility]/ZIP Code Phon e Number APS DAVITA [facility] Hepatitis B Surface Antigen (08/18/2021 1:30 PM CDT) P athologist Signature Hep B Surface NEG -NEG APS DAVITA Antigen [facility] Comment: This test utilizes Biotin (Vitamin B7) a s one of it's reagents. Testing may be interfered with in patients consuming Bi otin supplements. Please factor this when reviewing results. Specimen Anatomical Collection Method Collection Time Receive d Time (Source) Location / / Volume Laterality 08/18/2021 1:30 PM 2 CDT 10:43 AM CDT Westley Vidal MD LAB BLOOD ORDERABLES Performing Organization Address City/[facility]/ZIP Code Phon e Number SUZANNE DAVKATHY [facility] (ABNORMAL) Ferritin (08/18/2021 1:30 PM CDT) P athologist Signature Ferritin 742 (H) 10 - 291 APS DAVITA ng/mL [facility] Specimen Anatomical Collection Method Collection Time Receive d Time (Source) Location / / Volume Laterality 08/18/2021 1:30 PM 2 CDT 10:43 AM CDT Westley Vidal MD LAB BLOOD ORDERABLES Performing Organization Address City/[facility]/ZIP Code Phon e Number APS DAVKATHY [facility] (ABNORMAL) Hemoglobin A1c (08/18/2021 1:30 PM CDT) P athologist Signature Hemoglobin A1C 6.0 (H) 0.0 - 5.6 APS DAVITA %A1c [facility] Specimen Anatomical Collection Method Collection Time Receive d Time (Source) Location / / Volume Laterality 08/18/2021 1:30 PM 2 CDT 10:43 AM CDT Westley Vidal MD LAB BLOOD ORDERABLES Performing Organization Address City/[facility]/ZIP Code Phon e Number APS DAVITA [facility] ALT (08/18/2021 1:30 PM CDT) P athologist Signature ALT (SGPT) 13 10 - 49 U/L APS DAVITA [facility] Specimen Anatomical Collection Method Collection Time Receive d Time (Source) Location / / Volume Laterality 08/18/2021 1:30 PM 2 CDT 10:43 AM CDT Westley Vidal MD LAB BLOOD ORDERABLES Performing Organization Address City/[facility]/ZIP Code Phon e Number APS DAVITA [facility] (ABNORMAL) Phosphorus (08/18/2021 1:30 PM CDT) P athologist Signature Phosphorus, 8.0 (H) 2.4 - 5.1 APS DAVITA Serum mg/dL [facility] Specimen Anatomical Collection Method Collection Time Receive d Time (Source) Location / / Volume Laterality 08/18/2021 1:30 PM 04/21/202 2 CDT 10:43 AM CDT Westley Vidal MD LAB BLOOD ORDERABLES Performing Organization Address City/[facility]/ZIP Code Phon e Number SUZANNE WYATT [facility] (ABNORMAL) Glucose, random (08/18/2021 1:30 PM CDT) P athologist Signature Glucose 237 (H) 70 - 99 APS DAVITA mg/dL [facility] Specimen Anatomical Collection Method Collection Time Receive d Time (Source) Location / / Volume Laterality 08/18/2021 1:30 PM 2 CDT 10:43 AM CDT Westley Vidal MD LAB BLOOD ORDERABLES Performing Organization Address City/[facility]/ZIP Code Phon e Number APS YOSELIN [facility] (ABNORMAL) Creatinine, serum (08/18/2021 1:30 PM CDT) athologist Signature Creatinine 6.16 (H) 0.50 - 1.10 APS DAVITA mg/dL [facility] Specimen Anatomical Collection Method Collection Time Receive d Time (Source) Location / / Volume Laterality 08/18/2021 1:30 PM 2 CDT 10:43 AM CDT Westley Vidal MD LAB BLOOD ORDERABLES Performing Organization Address City/[facility] Code Phon e Number APS YOSELIN [facility] HCV PANEL NONPROTOCL (08/18/2021 1:30 PM CDT) athologist Signature Hepatitis C 0.05 0.00 - APS DAVITA Antibody 0.79 [facility] [...] Time (Source) Location / / Volume Laterality 08/18/2021 1:30 PM 2 CDT 10:43 AM CDT Westley Vidal MD LAB [id number] NSOLICITED RESULTS Performing Organization Address City/State/ZIP Code Phon e Number APS DAVITA [facility] (ABNORMAL) KT/V DAUGIRDAS (08/18/2021 1:30 PM CDT) P athologist Signature BUN 72 (H) 9 - 23 APS DAVITA mg/dL [facility] BUN Post 20 9 - 23 APS DAVITA Dialysis mg/dL [facility] URR% 72 65 - 100 % APS DAVITA [facility] Specimen Anatomical Collection Method Collection Time Receive d Time (Source) Location / / Volume Laterality 08/18/2021 1:30 PM 2 CDT 10:43 AM CDT Westley Vidal MD LAB [id number] NSOLICITED RESULTS Performing Organization Address [facility]/ZIP Code Phon e Number APS DAVITA [facility] (ABNORMAL) Iron Panel (Fe, TIBC, TSAT) (08/18/2021 1:30 PM CDT) P athologist Signature Iron 52 50 - 170 APS DAVITA ug/dL [facility] TIBC 223 (L) 250 - 425 APS DAVITA ug/dL [facility] UIBC 171 80 - 375 APS DAVITA ug/dL [facility] Iron Saturation 23 16 - 46 % APS DAVITA (TSat) [facility] Specimen Anatomical Collection Method Collection Time Receive d Time (Source) Location / / Volume Laterality 08/18/2021 1:30 PM 2 CDT 10:43 AM CDT Westley Vidal MD LAB BLOOD ORDERABLES Performing Organization Address City/State/ZIP Code Phon e Number APS DAV[facility] (ABNORMAL) MONTHLY HD W/O CA/PH (08/18/2021 1:30 PM CDT) Patholo gist Method Time Signature Potassium 4.9 3.5 - 5.5 [facility] mEq/L [facility] Chloride 105 99 - 109 [facility] mEq/L [facility] Bicarbonate 22 20 - 31 APS DAV[facility] (CO2) mEq/L [facility] Protein, Total 6.9 5.7 - 8.2 A[facility] g/dL [facility] Albumin 3.8 3.4 - 4.8 [facility] g/dL [facility] AST (SGOT) 15 0 - 33 APS [facility] U/L [facility] LDH 230 120 - 246 APS [facility] U/L [facility] Alkaline 120 (H) 46 - 116 [facility] Phosphatase U/L [facility] WBC 6.8 4.5 - [facility]PS [facility] 11.0 x [facility] 10'3 cells/uL RBC 2.40 (L) 4.20 - APS [facility] 5.40 x [facility] 10'6 cells/uL Hgb 8.0 (L) 12.0 - APS [facility] 16.0 g/dL [facility] Hematocrit 25.6 (L) 37.0 - APS [facility] 47.0 % [facility] Hemoglobin x 3 24.0 (L) 37.0 - APS [facility] 47.0 % [facility] MCV 106.7 (H) 80.0 - APS DAV[facility] 100.0 fL [facility] Comment: NOTE: MCV may be falsely elevat ed in aged samples (approximately 72 hours). MCH 33.3 (H) 27.0 - 31.0 pg APS [facility] N MCHC 31.2 (L) 32.0 - 36.0 g/dL APS [facility] MMN RDW 18.6 (H) 11.0 - 15.0 % APS [facility] Platelets 175 150 - 400 x 10'3 cells/uL A[facility] Neutrophils % Auto 67.0 % APS DAV[facility] Lymphocytes Manual 21.9 % APS DAV[facility] Monocytes Manual 5.9 % APS [place] MMN Eosinophil % 4.9 % APS DAV[facility] Basophils Relative 0.2 % APS DAV[facility] Neutrophils Absolute 4,569.40 2,000 - 8,800 Cell/uL APS [facility] Lymphocytes Absolute 1,493.58 1,100 - 4,800 Cell/uL APS [facility] Monocytes Absolute 402.38 0 - 1,100 Cell/uL APS [facility] Eosinophils Absolute 334.18 0 - 700 Cell/uL APS [facility] Basophils Absolute 13.64 0 - 400 Cell/uL APS D AVITA [facility] Comment: NOTE:Diff percentage results will contin ue to be reported but without reference ranges per CAP guidelines and will not b e flagged as normal or abnormal. Absolute concentrations of circulating W BC are the preferable method of reporting and will continue to be evalua deidre against established reference ranges. Globulin 3.1 0.9 - 5 g/dL [facility] A/G Ratio 1.2 1 - 2.5 Calc [facility]PS [facility] Specimen Anatomical Collection Method Collection Time Receive d Time (Source) Location / / Volume Laterality 08/18/2021 1:30 PM 2 CDT 10:43 AM CDT Westley Vidal MD LAB [id number] NSOLICITED RESULTS Performing Organization Address City/State/ZIP Code Phon e Number APS [facility] (ABNORMAL) Hemoglobin (08/11/2021 1:30 PM CDT) P athologist Signature Hgb 7.6 (L) 12.0 - 16.0 APS DAV[facility] g/dL [facility] Specimen Anatomical Collection Method Collection Time Receive d Time (Source) Location / / Volume Laterality 08/11/2021 1:30 PM 2 9:23 CDT AM CDT Westley Vidal MD LAB BLOOD ORDERABLES Performing Organization Address City/State/ZIP Code Phon e Number APS DAV[facility] (ABNORMAL) HCT CALC HGBX3 (08/11/2021 1:30 PM CDT) Analysis Performed At Patho logist Time Signature Hemoglobin x 3 22.8 (L) 37.0 - APS DAVITA 47.0 % [facility] Specimen Anatomical Collection Method Collection Time Receive d Time (Source) Location / / Volume Laterality 08/11/2021 1:30 PM 2 9:23 CDT AM CDT Westley Vidal MD LAB [id number] NSOLICITED RESULTS Performing Organization Address City/State/ZIP Code Phon e Number APS [facility] (ABNORMAL) KT/V DAUGIRDAS (08/06/2021 1:30 PM CDT) P athologist Signature BUN 61 (H) 9 - 23 APS [facility] mg/dL [facility] BUN Post 19 9 - 23 APS [facility] Dialysis mg/dL [facility] URR% 69 65 - 100 % APS DAV[facility] Specimen Anatomical Collection Method Collection Time Receive d Time (Source) Location / / Volume Laterality 08/06/2021 1:30 PM 2 7:25 CDT PM CDT Westley Vidal MD LAB [id number] NSOLICITED RESULTS Performing Organization Address City/[facility]/ZIP Code Phon e Number SUZANNE WYATT [facility] (ABNORMAL) HCT CALC HGBX3 (08/04/2021 1:30 PM CDT) Analysis Performed At Patho logist Time Signature Hemoglobin x 3 24.3 (L) 37.0 - APS DAVITA 47.0 % [facility] Specimen Anatomical Collection Method Collection Time Receive d Time (Source) Location / / Volume Laterality 08/04/2021 1:30 PM 2 CDT 10:45 AM CDT Westley Vidal MD LAB [id number] NSOLICITED RESULTS Performing Organization Address City/[facility] Code Phon e Number SUZANNE WYATT [facility] (ABNORMAL) PTH, Intact (08/04/2021 1:30 PM CDT) P athologist Signature PTH 385 (H) 18 - 80 APS SARAHIITA pg/mL [facility] Comment: This test utilizes Biotin (Vitamin B7) a s one of it's reagents. Testing may be interfered with in patients consuming Bi otin supplements. Please factor this when reviewing results. METHODOLOGY: SIE [employer] Reference range changed as of May 03, 2017. Specimen Anatomical Collection Method Collection Time Receive d Time (Source) Location / / Volume Laterality 08/04/2021 1:30 PM 2 CDT 10:45 AM CDT Westley Vidal MD LAB BLOOD ORDERABLES Performing Organization Address City/[facility]/ZIP Code Phon e Number SUZANNE WYATT [facility] Reticulocytes (08/04/2021 1:30 PM CDT) P athologist Signature Retic Ct Pct TNP % SUZANNE WYATT [facility] Comment: CANCELED - TEST CANCELED PER CL [facility] Specimen Anatomical Collection Method Collection Time Receive d Time (Source) Location / / Volume Laterality 08/04/2021 1:30 PM 2 CDT 10:45 AM CDT Westley Vidal MD LAB BLOOD ORDERABLES Performing Organization Address City/State/ZIP Code Phon e Number SUZANNE DAVKATHY [facility] (ABNORMAL) Hemoglobin (08/04/2021 1:30 PM CDT) P athologist Signature Hgb 8.1 (L) 12.0 - 16.0 APS DAVITA g/dL [facility] Specimen Anatomical Collection Method Collection Time Receive d Time (Source) Location / / Volume Laterality 08/04/2021 1:30 PM 2 CDT 10:45 AM CDT Westley Vidal MD LAB BLOOD ORDERABLES Performing Organization Address City/State/ZIP Code Phon e Number APS DAVKATHY [facility] KT/V DAUGIRDAS (08/04/2021 1:30 PM CDT) Specimen Anatomical Collection Method Collection Time Receive d Time (Source) Location / / Volume Laterality 08/04/2021 1:30 PM 2 CDT 10:45 AM CDT Westley Vidal MD LAB [id number] NSOLICITED RESULTS Performing Organization Address City/[facility]/ZIP Code Phon e Number APS DAVKATHY [facility] (ABNORMAL) CARMEN/PHOS W/RATI (08/04/2021 1:30 PM CDT) P athologist Signature Calcium 8.2 (L) 8.7 - 10.4 APS DAVITA mg/dL [facility] Phosphorus, 5.6 (H) 2.4 - 5.1 APS DAVITA Serum mg/dL [facility] CA/PHOS 45.9 21 - 53 APS DAVITA PRODUCT Calc [facility] Corrected 8.4 (L) 8.7 - 10.4 APS DAVITA Calcium mg/dL [facility] CA*PO4 CORRCTD 47.0 21 - 53 APS DAVITA Calc [facility] Specimen Anatomical Collection Method Collection Time Receive d Time (Source) Location / / Volume Laterality 08/04/2021 1:30 PM 2 CDT 10:45 AM CDT Westley Vidal MD LAB [id number] NSOLICITED RESULTS Performing Organization Address City/State/ZIP Code Phon e Number APS DAVKATHY [facility] (ABNORMAL) Reticulocytes (08/01/2021 1:30 PM CDT) P athologist Signature Retic Ct Pct 5.02 (H) 0.8 - 2.1 APS DAVITA % [facility] Specimen Anatomical Collection Method Collection Time Receive d Time (Source) Location / / Volume Laterality 08/01/2021 1:30 PM 2 3:18 CDT PM CDT Westley Vidal MD LAB BLOOD ORDERABLES Performing Organization Address [facility] Code Phon e Number APS DAVITA [facility] Hepatitis B Surface Antigen (07/21/2021 1:30 PM CDT) athologist Signature Hep B Surface NEG -NEG APS DAVITA Antigen [facility] Comment: This test utilizes Biotin (Vitamin B7) a s one of it's reagents. Testing may be interfered with in patients consuming Bi otin supplements. Please factor this when reviewing results. Specimen Anatomical Collection Method Collection Time Receive d Time (Source) Location / / Volume Laterality 07/21/2021 1:30 PM 2 8:08 CDT AM CDT Westley Vidal MD LAB BLOOD ORDERABLES Performing Organization Address [facility] Phon e Number APS DAVITA [facility] (ABNORMAL) Ferritin (07/21/2021 1:30 PM CDT) athologist Signature Ferritin 692 (H) 10 - 291 APS DAVITA ng/mL [facility] Specimen Anatomical Collection Method Collection Time Receive d Time (Source) Location / / Volume Laterality 07/21/2021 1:30 PM 2 8:08 CDT AM CDT Westley Vidal MD LAB BLOOD ORDERABLES Performing Organization Address [facility] Phon e Number APS DAVITA [facility] (ABNORMAL) ALT (07/21/2021 1:30 PM CDT) athologist Signature ALT (SGPT) <9 (L) 10 - 49 U/L APS DAVITA [facility] Specimen Anatomical Collection Method Collection Time Receive d Time (Source) Location / / Volume Laterality 07/21/2021 1:30 PM 2 8:08 CDT AM CDT Westley Vidal MD LAB BLOOD ORDERABLES Performing Organization Address [facility]/ZIP Code Phon e Number APS DAVITA [facility] (ABNORMAL) Glucose, random (07/21/2021 1:30 PM CDT) P athologist Signature Glucose 200 (H) 70 - 99 APS DAVITA mg/dL [facility] Specimen Anatomical Collection Method Collection Time Receive d Time (Source) Location / / Volume Laterality 07/21/2021 1:30 PM 2 8:08 CDT AM CDT Westley Vidal MD LAB BLOOD ORDERABLES Performing Organization Address City/[facility]/ZIP Code Phon e Number APS DAVITA [facility] (ABNORMAL) Creatinine, serum (07/21/2021 1:30 PM CDT) athologist Signature Creatinine 5.03 (H) 0.50 - 1.10 APS DAVITA mg/dL [facility] Specimen Anatomical Collection Method Collection Time Receive d Time (Source) Location / / Volume Laterality 07/21/2021 1:30 PM 2 8:08 CDT AM CDT Westley Vidal MD LAB BLOOD ORDERABLES Performing Organization Address City/[facility]/ZIP Code Phon e Number APS DAVITA [facility] (ABNORMAL) Iron Panel (Fe, TIBC, TSAT) (07/21/2021 1:30 PM CDT) athologist Signature Iron 67 50 - 170 APS DAVITA ug/dL [facility] TIBC 208 (L) 250 - 425 APS DAVITA ug/dL [facility] UIBC 141 80 - 375 APS DAVITA ug/dL [facility] Iron Saturation 32 16 - 46 % APS DAVITA (TSat) [facility] Specimen Anatomical Collection Method Collection Time Receive d Time (Source) Location / / Volume Laterality 07/21/2021 1:30 PM 2 8:08 CDT AM CDT Westley Vidal MD LAB BLOOD ORDERABLES Performing Organization Address City/[facility]/ZIP Code Phon e Number APS DAVITA [facility] (ABNORMAL) MONTHLY HD W/O CA/PH (07/21/2021 1:30 PM CDT) [facility] gist Method Time Signature Potassium 4.5 3.5 - 5.5 APS DAVITA mEq/L [facility] Chloride 108 99 - 109 APS DAVITA mEq/L [facility] Bicarbonate 19 (L) 20 - 31 APS DAVITA (CO2) mEq/L [facility] Protein, Total 7.0 5.7 - 8.2 APS DAVITA g/dL [facility] Albumin 3.7 3.4 - 4.8 APS DAVITA g/dL [facility] AST (SGOT) 16 0 - 33 APS DAVITA U/L [facility] LDH 252 (H) 120 - 246 APS DAVITA U/L [facility] Alkaline 109 46 - 116 APS DAVITA Phosphatase U/L [facility] WBC 8.6 4.5 - APS DAVITA 11.0 x [facility] 10'3 cells/uL RBC 2.60 (L) 4.20 - APS DAVITA 5.40 x [facility] 10'6 cells/uL Hgb 8.3 (L) 12.0 - APS DAVITA 16.0 g/dL [facility] Hematocrit 26.2 (L) 37.0 - APS DAVITA 47.0 % [facility] Hemoglobin x 3 24.9 (L) 37.0 - APS DAVITA 47.0 % [facility] MCV 100.8 (H) 80.0 - APS DAVITA 100.0 fL [facility] Comment: NOTE: MCV may be falsely elevat ed in aged samples (approximately 72 hours). MCH 31.8 (H) 27.0 - 31.0 pg APS DAVITA [facility] N MCHC 31.6 (L) 32.0 - 36.0 g/dL APS DAV[place] MMN RDW 16.7 (H) 11.0 - 15.0 % APS DAVITA [facility] Platelets 203 150 - 400 x 10'3 cells/uL APS DAVITA [facility] Neutrophils % Auto 70.4 % APS DAVITA [facility] Lymphocytes Manual 21.5 % APS DAVITA [facility] Monocytes Manual 3.8 % APS DAV[place] MMN Eosinophil % 3.9 % APS DAVITA [facility] Basophils Relative 0.4 % APS DAVITA [facility] Neutrophils Absolute 6,068.48 2,000 - 8,800 Cell/uL APS DAVITA [facility] Lymphocytes Absolute 1,853.30 1,100 - 4,800 Cell/uL APS DAVITA [facility] Monocytes Absolute 327.56 0 - 1,100 Cell/uL APS DAVITA [facility] Eosinophils Absolute 336.18 0 - 700 Cell/uL APS DAVITA [facility] Basophils Absolute 34.48 0 - 400 Cell/uL APS D AVITA [facility] Comment: NOTE:Diff percentage results will contin ue to be reported but without reference ranges per CAP guidelines and will not b e flagged as normal or abnormal. Absolute concentrations of circulating W BC are the preferable method of reporting and will continue to be evalua deidre against established reference ranges. Globulin 3.3 0.9 - 5 g/dL APS DAVITA [facility] A/G Ratio 1.1 1 - 2.5 Calc APS DAVITA [facility] Specimen Anatomical Collection Method Collection Time Receive d Time (Source) Location / / Volume Laterality 07/21/2021 1:30 PM 2 8:08 CDT AM CDT Westley Vidal MD LAB [id number] NSOLICITED RESULTS Performing Organization Address City/[facility]/ZIP Code Phon e Number APS DAVITA [facility] Culture, Catheter Exit Site (07/18/2021 1:30 PM CDT) P athologist Signature Culture,Exit APS DAVITA Site [facility] Comment: [07-18-2021 14:15] ?? REPORT COMMENTS: [07-20-2021 10:44] ?? No growth in 24 ho urs. [07-21-2021 14:40] ?? No growth in 48 ho urs. Specimen Anatomical Collection Method Collection Time Receive d Time (Source) Location / / Volume Laterality 07/18/2021 1:30 PM 2 CDT 11:24 AM CDT Westley Vidal MD LAB MICROBIOLOGY - GENERAL O RDERABLES Performing Organization Address City/State/ZIP Code Phon e Number APS DAVITA [facility] (ABNORMAL) HCT CALC HGBX3 (07/16/2021 1:30 PM CDT) Analysis Performed At Patho logist Time Signature Hemoglobin x 3 22.2 (L) 37.0 - APS DAVITA 47.0 % [facility] Specimen Anatomical Collection Method Collection Time Receive d Time (Source) Location / / Volume Laterality 07/16/2021 1:30 PM 2 7:05 CDT PM CDT Westley Vidal MD LAB [id number] NSOLICITED RESULTS Performing Organization Address City/State/ZIP Code Phon e Number APS DAVITA [facility] (ABNORMAL) Hemoglobin (07/16/2021 1:30 PM CDT) athologist Signature Hgb 7.4 (L) 12.0 - 16.0 APS DAVITA g/dL [facility] Specimen Anatomical Collection Method Collection Time Receive d Time (Source) Location / / Volume Laterality 07/16/2021 1:30 PM 2 7:05 CDT PM CDT Westley Vidal MD LAB BLOOD ORDERABLES Performing Organization Address City/State/ZIP Code Phon e Number APS DAVITA [facility] (ABNORMAL) KT/V DAUGIRDAS (07/16/2021 1:30 PM CDT) athologist Signature BUN 66 (H) 9 - 23 APS DAVITA mg/dL [facility] BUN Post 15 9 - 23 APS DAVITA Dialysis mg/dL [facility] URR% 77 65 - 100 % APS DAVITA [facility] Specimen Anatomical Collection Method Collection Time Receive d Time (Source) Location / / Volume Laterality 07/16/2021 1:30 PM 2 7:05 CDT PM CDT Westley Vidal MD LAB [id number] NSOLICITED RESULTS Performing Organization Address City/State/ZIP Code Phon e Number APS DAVITA [facility] (ABNORMAL) CARMEN/PHOS W/RATI (07/16/2021 1:30 PM CDT) P athologist Signature Calcium 8.3 (L) 8.7 - 10.4 APS DAVITA mg/dL [facility] Phosphorus, 5.5 (H) 2.4 - 5.1 APS DAVITA Serum mg/dL [facility] CA/PHOS 45.7 21 - 53 APS DAVITA PRODUCT Calc [facility] Corrected 8.5 (L) 8.7 - 10.4 APS DAVITA Calcium mg/dL [facility] CA*PO4 CORRCTD 46.8 21 - 53 APS DAVITA Calc [facility] Specimen Anatomical Collection Method Collection Time Receive d Time (Source) Location / / Volume Laterality 07/16/2021 1:30 PM 2 7:05 CDT PM CDT Westley Vidal MD LAB [id number] NSOLICITED RESULTS Performing Organization Address City/[facility]/ZIP Code Phon e Number SUZANNE WYATT [facility] Hepatitis B Core Antibody, Total (07/04/2021 1:45 PM HAND RIGGER) P athologist Signature HBc Total Ab, S NEG -NEG APS DAVITA [facility] Comment: This test utilizes Biotin (Vitamin B7) a s one of it's reagents. Testing may be interfered with in patients consuming Bi otin supplements. Please factor this when reviewing results. METHODOLOGY: SIE [employer] Specimen Anatomical Collection Method Collection Time Receive d Time (Source) Location / / Volume Laterality 07/04/2021 1:45 PM 2 9:56 HAND RIGGER AM HAND RIGGER Westley Vidal MD LAB BLOOD ORDERABLES Performing Organization Address [facility] Code Phon e Number SUZANNE MCCLAINITA [facility] Hepatitis B Surface Antibody (07/04/2021 1:45 PM HAND RIGGER) P athologist Signature Hepatitis B 3 0 - 9 APS DAVITA Surface Ab mIU/mL [facility] Comment: Results >= 10 mIU/ml are consis tent with Immunity to Hepatitis B Specimen Anatomical Collection Method Collection Time Receive d Time (Source) Location / / Volume Laterality 07/04/2021 1:45 PM 2 9:56 HAND RIGGER AM HAND RIGGER Westley Vidal MD LAB BLOOD ORDERABLES Performing Organization Address [facility] Code Phon e Number SUZANNE WYATT [facility] Hepatitis B Surface Antigen (07/04/2021 1:45 PM HAND RIGGER) P athologist Signature Hep B Surface NEG -NEG APS DAVITA Antigen [facility] Comment: This test utilizes Biotin (Vitamin B7) a s one of it's reagents. Testing may be interfered with in patients consuming Bi otin supplements. Please factor this when reviewing results. Specimen Anatomical Collection Method Collection Time Receive d Time (Source) Location / / Volume Laterality 07/04/2021 1:45 PM 2 9:56 HAND RIGGER AM HAND RIGGER Westley Vidal MD LAB BLOOD ORDERABLES Performing Organization Address City/[facility]/ZIP Code Phon e Number APS DAVITA [facility] (ABNORMAL) PTH, Intact (07/04/2021 1:45 PM HAND RIGGER) athologist Signature PTH 121 (H) 18 - 80 APS DAVITA pg/mL [...] Time (Source) Location / / Volume Laterality 07/04/2021 1:45 PM 9:56 HAND RIGGER AM HAND RIGGER Westley Vidal MD LAB BLOOD ORDERABLES Performing Organization Address City/State/ZIP Code Phon e Number SUZANNE WYATT [facility] (ABNORMAL) Ferritin (07/04/2021 1:45 PM HAND RIGGER) athologist [facility] Ferritin 1,114 (H) 10 - 291 APS DAVITA ng/mL [facility] Specimen Anatomical Collection Method Collection Time Receive d Time (Source) Location / / Volume Laterality 07/04/2021 1:45 PM 9:56 HAND RIGGER AM HAND RIGGER Westley Vidal MD LAB BLOOD ORDERABLES Performing Organization Address City/State/ZIP Code Phon e Number APS DAVKATHY [facility] (ABNORMAL) Hemoglobin A1c (07/04/2021 1:45 PM HAND RIGGER) athologist Signature Hemoglobin A1C 6.1 (H) 0.0 - 5.6 APS DAVITA %A1c [facility] Specimen Anatomical Collection Method Collection Time Receive d Time (Source) Location / / Volume Laterality 07/04/2021 1:45 PM 9:56 HAND RIGGER AM HAND RIGGER Westley Vidal MD LAB BLOOD ORDERABLES Performing Organization Address City/State/ZIP Code Phon e Number APS DAVITA [facility] (ABNORMAL) ALT (07/04/2021 1:45 PM HAND RIGGER) athologist Signature ALT (SGPT) <9 (L) 10 - 49 U/L APS DAVITA [facility] Specimen Anatomical Collection Method Collection Time Receive d Time (Source) Location / / Volume Laterality 07/04/2021 1:45 PM 2 9:56 HAND RIGGER AM HAND RIGGER Westley Vidal MD LAB BLOOD ORDERABLES Performing Organization Address City/State/ZIP Code Phon e Number SUZANNE WYATT [facility] (ABNORMAL) Glucose, random (07/04/2021 1:45 PM HAND RIGGER) athologist Signature Glucose 138 (H) 70 - 99 APS DAVITA mg/dL [facility] Specimen Anatomical Collection Method Collection Time Receive d Time (Source) Location / / Volume Laterality 07/04/2021 1:45 PM 2 9:56 HAND RIGGER AM HAND RIGGER Westley Vidal MD LAB BLOOD ORDERABLES Performing Organization Address City/State/ZIP Code Phon e Number SUZANNE WYATT [facility] (ABNORMAL) Creatinine, serum (07/04/2021 1:45 PM HAND RIGGER) athologist Signature Creatinine 4.69 (H) 0.50 - 1.10 APS DAVITA mg/dL [facility] Specimen Anatomical Collection Method Collection Time Receive d Time (Source) Location / / Volume Laterality 07/04/2021 1:45 PM 2 9:56 HAND RIGGER AM HAND RIGGER Westley Vidal MD LAB BLOOD ORDERABLES Performing Organization Address City/[facility]/ZIP Code Phon e Number SUZANNE WYATT [facility] HCV PANEL PROTOCOL (07/04/2021 1:45 PM HAND RIGGER) athologist Signature Hepatitis C 0.03 0.00 - APS DAVITA Antibody 0.79 [facility] [...] Quantitative see comments Log IU/mL AP S SARAHIITA [facility] Comment: Canceled, testing not indicated . Specimen Anatomical Collection Method Collection Time Receive d Time (Source) Location / / Volume Laterality 07/04/2021 1:45 PM 2 9:56 HAND RIGGER AM HAND RIGGER Westley Vidal MD LAB [id number] NSOLICITED RESULTS Performing Organization Address City/State/ZIP Code Phon e Number APS DAVITA [facility] (ABNORMAL) KT/V DAUGIRDAS (07/04/2021 1:45 PM HAND RIGGER) athologist Signature BUN 48 (H) 9 - 23 APS DAVITA mg/dL [facility] BUN Post 15 9 - 23 APS DAVITA Dialysis mg/dL [facility] URR% 69 65 - 100 % APS DAVITA [facility] Specimen Anatomical Collection Method Collection Time Receive d Time (Source) Location / / Volume Laterality 07/04/2021 1:45 PM 2 9:56 HAND RIGGER AM HAND RIGGER Westley Vidal MD LAB [id number] NSOLICITED RESULTS Performing Organization Address City/State/ZIP Code Phon e Number APS DAVITA [facility] (ABNORMAL) CARMEN/PHOS W/RATI (07/04/2021 1:45 PM HAND RIGGER) athologist Signature Calcium 8.3 (L) 8.7 - 10.4 APS DAVITA mg/dL [facility] Phosphorus, 5.0 2.4 - 5.1 APS DAVITA Serum mg/dL [facility] CA/PHOS 41.5 21 - 53 APS DAVITA PRODUCT Calc [facility] Corrected 8.5 (L) 8.7 - 10.4 APS DAVITA Calcium mg/dL [facility] CA*PO4 CORRCTD 42.5 21 - 53 APS DAVITA Calc [facility] Specimen Anatomical Collection Method Collection Time Receive d Time (Source) Location / / Volume Laterality 07/04/2021 1:45 PM 2 9:56 HAND RIGGER AM HAND RIGGER Westley Vidal MD LAB [id number] NSOLICITED RESULTS Performing Organization Address City/State/ZIP Code Phon e Number APS DAVITA [facility] (ABNORMAL) Iron Panel (Fe, TIBC, TSAT) (07/04/2021 1:45 PM HAND RIGGER) athologist Signature Iron 76 50 - 170 APS DAVITA ug/dL [facility] TIBC 181 (L) 250 - 425 APS DAVITA ug/dL [facility] UIBC 105 80 - 375 APS DAVITA ug/dL [facility] Iron Saturation 42 16 - 46 % APS DAVITA (TSat) [facility] Specimen Anatomical Collection Method Collection Time Receive d Time (Source) Location / / Volume Laterality 07/04/2021 1:45 PM 9:56 HAND RIGGER AM HAND RIGGER Westley Vidal MD LAB BLOOD ORDERABLES Performing Organization Address City/State/ZIP Code Phon e Number APS DAVITA [facility] (ABNORMAL) MONTHLY HD W/O CA/PH (07/04/2021 1:45 PM HAND RIGGER) [facility] gist Method Time Signature Potassium 4.4 3.5 - 5.5 APS DAVITA mEq/L [facility] Chloride 101 99 - 109 APS DAVITA mEq/L [facility] Bicarbonate 28 20 - 31 APS DAVITA (CO2) mEq/L [facility] Protein, Total 6.9 5.7 - 8.2 APS DAVITA g/dL [facility] Albumin 3.8 3.2 - 4.8 APS DAVITA g/dL [facility] AST (SGOT) 26 0 - 34 U/L APS DAVITA [facility] LDH 244 120 - 246 APS DAVITA U/L [facility] Alkaline 131 (H) 46 - 116 APS DAVITA Phosphatase U/L [facility] WBC 5.6 4.5 - 11.0 APS DAVITA x 10'3 [facility] cells/uL RBC 2.48 (L) 4.20 - APS DAVITA 5.40 x [facility] 10'6 cells/uL Hgb 8.1 (L) 12.0 - APS DAVITA 16.0 g/dL [facility] Hematocrit 24.1 (L) 37.0 - APS DAVITA 47.0 % [facility] MCV 97.2 80.0 - APS DAVITA 100.0 fL [facility] Comment: NOTE: MCV may be falsely elevat ed in aged samples (approximately 72 hours). MCH 32.6 (H) 27.0 - 31.0 pg APS DAVITA [facility] N MCHC 33.6 32.0 - 36.0 g/dL APS DAVITA [place] MMN RDW 16.0 (H) 11.0 - 15.0 % APS DAVITA [facility] Platelets 132 (L) 150 - 400 x 10'3 cells/uL APS DAVITA [facility] Neutrophils % Auto 67.9 % APS DAVITA [facility] Lymphocytes Manual 22.5 % APS DAVITA [facility] Monocytes Manual 5.0 % APS DAVITA [place] MMN Eosinophil % 3.7 % APS DAVITA [facility] Basophils Relative 0.9 % APS DAVITA [facility] Neutrophils Absolute 3,802.40 2,000 - 8,800 Cell/uL APS DAVITA [facility] Lymphocytes Absolute 1,260.00 1,100 - 4,800 Cell/uL APS DAVITA [facility] Monocytes Absolute 280.00 0 - 1,100 Cell/uL APS DAVITA [facility] Eosinophils Absolute 207.20 0 - 700 Cell/uL APS DAVITA [facility] Basophils Absolute 50.40 0 - 400 Cell/uL APS D AVITA [facility] Comment: NOTE:Diff percentage results will contin ue to be reported but without reference ranges per CAP guidelines and will not b e flagged as normal or abnormal. Absolute concentrations of circulating W BC are the preferable method of reporting and will continue to be evalua deidre against established reference ranges. Globulin 3.1 0.9 - 5 g/dL APS DAVITA [facility] A/G Ratio 1.2 1 - 2.5 Calc APS DAVITA [facility] Hemoglobin x 3 24.3 (L) 37.0 - 47.0 % APS DAVITA [facility] Specimen Anatomical Collection Method Collection Time Receive d Time (Source) Location / / Volume Laterality 07/04/2021 1:45 PM 2 9:56 HAND RIGGER AM HAND RIGGER Westley Vidal MD LAB [id number] NSOLICITED RESULTS Performing Organization Address City/State/ZIP Code Phon e Number APS DAVITA [facility] documented in this encounter Visit Diagnoses Not on filedocumented in this encounter
--- OUTSIDE RECORDS SUMMARY | 2022-04-02 21:37 | XMS_ITS | Encounter Summary ---
:1950 Author Organization [facility] Address [address] [place] [address] Care Team Providers Name Role Phone Unavailable Primary Care Provider Unavailable Encounter Details Date Type Department Care Team Description 10/06/2021 Treatment [facility] Westley Meeks MD [address] [place] [address] [place] [address] [place], [place] [phone] Social History Tobacco Use Types Packs/Day Years Used Date Smoking Tobacco: Never Assessed Sex Assigned at Date Recorded Not on file documented as of this encounter Miscellaneous Notes Dialysis Note - Westley Vidal MD - 10/06/2021 6:08 PM CDT Date: Oct 06, 2021 Patient Name: Charlotte Ramos : 1950 Chart #: [id number] Sex: F This patient was personally seen for a complete visit as part of routine monthly dialysis care. A review of the dialysis treatment, blood pressure, estimated dry weight and recent lab values was made. These were discussed with the patient and staff as necessary. GREEN TIRE INSPECTOR: Westley Vidal MD LOCATION: [place] [phone] SCHEDULE: -- 2nd Shift EDW: kg. DIALYZER: [...] pain Advanced Practitioner Subjective Review of Systems Problem [...] made. Treatment and Adequacy Assessment BUN mg/dL 60 (09/01/21) 72 (08/18/21) 61 (08/06/21) 66 (07/16/21) 48 (07/04/21) CREATININE (MG/DL) IN SER/PLAS mg/dL 5.69 (09/15/21) 6.16 (08/18/21) 5.03 (07/21/21) 4.69 (07/04/21) URR% % 75 (09/01/21) 72 (08/18/21) 69 (08/06/21) 77 (07/16/21) 69 [...] Anemia Assessment WBC (BLOOD) x 103 cells/uL 8.2 (09/15/21) 6.8 (08/18/21) 8.6 (07/21/21) 5.6 (07/04/21) HGB g/dL 9.9 (09/26/21) 9.8 (09/22/21) 8.9 (09/15/21) 9.1 (09/08/21) 8.1 (09/01/21) PLATELETS x 103 cells/uL 247 (09/15/21) 175 (08/18/21) 203 (07/21/21) 132 (07/04/21) IRON SATURATION % 29 (09/15/21) 23 (08/18/21) 32 (07/21/21) 42 (07/04/21) FERRITIN ng/mL 1041 (09/15/21) 742 (08/18/21) 692 (07/21/21) 1114 (07/04/21) Hemoglobin is below goal. Iron Saturation is at goal. Ferritin is above goal. Will adjust LINA and intravenous iron per protocol. Nutritional and Metabolic Assessment ALBUMIN (G/DL) g/dL 3.8 (09/15/21) 3.8 (08/18/21) 3.7 (07/21/21) 3.8 (07/04/21) POTASSIUM (MMOL/L) IN SER/PLAS mEq/L 5.3 (09/15/21) 4.9 (08/18/21) 4.5 (07/21/21) 4.4 (07/04/21) BICARBONATE (CO2) mEq/L 20 (09/15/21) 22 (08/18/21) 19 (07/21/21) 28 (07/04/21) Albumin is below goal. Potassium is above goal. Encourage low potassium diet. Bicarbonate is below goal. Bone and Mineral Metabolism Assessment CALCIUM mg/dL 8.1 (09/01/21) 8.2 (08/04/21) 8.3 (07/16/21) 8.3 (07/04/21) CORRECTED CALCIUM mg/dL 8.3 (09/01/21) 8.4 (08/04/21) 8.5 (07/16/21) 8.5 (07/04/21) PHOSPHORUS mg/dL TNP (09/26/21) 7.0 (09/15/21) 7.8 (09/01/21) 8.0 (08/18/21) 5.6 (08/04/21) CA*PO4 CORRCTD Calc 64.7 (09/01/21) 47.0 (08/04/21) 46.8 (07/16/21) 42.5 [...] fistula. 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 Have raised dry weight because of hypotensive episode on dialysis Phos too high , Says she is taking binder, working with dietitian. PTH is ok. HGB still low, resistant to epo probably because of myeloma Westley Vidal MD [ Signed And locked electronically On 10/06/2021 at 06:12:38 PM ] Transcribed: Westley Vidal ( 10/06/2021 ) documented in this encounter Plan of Treatment Not on filedocumented as of this encounter Visit Diagnoses Not on filedocumented in this encounter
--- OUTSIDE RECORDS SUMMARY | 2022-04-02 21:38 | XMS_ITS | Continuity of Care Document ---
:1950 Author Organization [facility] Address [address] [address] [place] [address] Phone Care Team Providers Name Role Phone Marissa Stevenson Unavailable Unavailable Procedures Procedure Date Subsqt Hosp-da E&m Stable 15 M Ugi Endo; W/bx 1/mx Init Hosp-da E&m Mod Severity Subsqt Hosp-da E&m Minr Compl Ercp; W/sphincterotomy/papillo Ercp; W/endo Retro Remov Stone Init Hosp-da E&m Mod Severity Advance Directives Directive Yes / No Effective Date File Name No Information Encounters Encounter Practice Location Reason(s) Diagnoses Date Provider Provide rs Description For Visit Copied on Encounter Subsqt WILLIAM United No Kaylen LORENZANA Referring [facility]osp[facility]da E[facility] Information Marissa. [address] Pr ovider: Stable 15 [facility], [address]issa [address] [place], [place], [id number], [address], [facility] [address] [place], [place], [place], [address], [id number], [id number], [facility], [facility]. [place], tel:[phone] tel:[phone]. [id number] tel:[phone] WILLIAM United No Antionette ARCHULETA Referring [facility] Information Cyril. [address] Provi jackie: [facility], [address] Cyril Adan [facility] MD [place], [id number], [address], [facility], [place] [address] [place], [place], [place], [address], [id number], [id number], [facility], [place]. [place], tel: tel: [phone]. [phone] tel: [phone] Init Hosp-da [facility] Watts No [facility] E[facility]m Mod [facility] Information e MD Ludwig. Provid er: [facility], [address] [facility] [address], [address] [place], e MD Sanchez, [address] [facility] [address], [place], [place], [place], [place] [id number], [place], [address], [place] [id number], [place], tel: [place]. [place], [id number] tel: [phone]. [phone] tel: [phone] Subsqt [facility] Damon No Dec-0 Nesset CIRCULATION MANAGER Referring Hosp-da E&m [facility] Information Ginger. 01 06 Provider: Sudeep [facility], Hosp 6 [facility] [place], Yasmine [address], [place] Anaya MD A, [address] [facility], [facility] [address], s, [place], [place], [place], [id number], [id number], [place], [address]. [place]. tel:[phone] tel: tel: [phone] [facility] Damon No Dec-0 Kellie ARCHULETA Referring Digestive [facility] Information 7 Irfan. [address]001 P rovider: [facility], Hosp 6 [facility] [place], Kellie ARCHULETA [address], [address], , [address] [facility], [place], [place], [address] [place] [id number], [id number], [address], [place]. [place], tel: tel:+ [phone], [phone]. tel:+ [phone] Init Hosp-da [facility] Damon No Aug-0 Carolyn sims E&m Mod Digestive [facility] Information [address]. Prov ider: [facility], Hosp 6 [address] [facility] [address], [address] MD Prosper CAMPOS, [address] [facility] [address], , [place], [place], [place], [id number], [place], [address]. [place] [id number], tel:[phone] tel:[phone] tel:[phone] Family History Family Member Type Diagnosis Age At Onset No Information Payers Payer name Insurance type Covered constitution party ID Authorization(s ) [employer] 16 [id number] Social History Type Description Quantity Date Captured Comments Sex Female Smoking Status No Information Chief Complaint And Reason For Visit No Information Reason For Referral Reason For Referral No Information Plan Of Treatment Date Type Action Status No Information History Of Present Illness Encounter Date Complaint History Of Present I llness No Information Functional Status Date Functional Assessment No Information Instructions Date Instruction Additional Informati on No Information Assessments Type Assessment Date No Information Patient Care Teams Name Effective Dates (start - stop) Status M esme No Information
== END 2022-02-13 20:32 | disposition home or self-care (01) ==
LOC: AMB 04-02 21:34
PROVIDERS: PCP Internal Medicine; Visit Provider Emergency Medicine
DX: R10.9 Unspecified abdominal pain (principal); Z99.2 Dependence on renal dialysis
CPT/HCPCS: A0425; A0428